=== PATIENT | female | born 1955 | race Caucasian/White ===

== ENCOUNTER 2018-12-20 04:52 | Emergency (ER) | payer OTHER ==
[2018-12-20] MEDS ORDERED: METHYLPREDNISOLONE 125 MG INJ ONE (05:27)
[2018-12-20] MEDS ORDERED: ALBUTEROL 2.5 MG/3 ML NEB SOL ONE (05:27)
[2018-12-20] MEDS ORDERED: LEVALBUTEROL 1.25 MG/3 ML NEB ONE (05:28)
[2018-12-20] MEDS ORDERED: IPRATROPIUM BROM 0.5MG/2.5ML ONE (05:28)
[2018-12-20] MEDS ORDERED: AZITHROMYCIN 500 MG INJ IVPB ONE (05:28)
[2018-12-20] MEDS ORDERED: CEFTRIAXONE 1000 MG/VIAL ONE (05:28)
[2018-12-20] MEDS ORDERED: NA CHLORIDE 0.9% 250 ML ONE (05:29)
[2018-12-20] MEDS ORDERED: ONDANSETRON 4 MG/2 ML VIAL ONE (05:49)
[2018-12-20 05:57] LABS: Absolute Lymphocytes (CBC) 1.5 K/uL (0.7-4.9); Absolute Monocytes 0.8 K/uL (0.1-1.3); Absolute Neutrophil 3.9 K/uL (1.8-8.0); Basophils % 1.2 % (0-1.3); Eosinophils % 6.9 % (0-4.4); Hematocrit 44.1 % (36.0-45.0); Lymphocytes % 21.7 % (15.3-44.8); MPV 9.2 fL (7.6-11.3); Monocytes % 12.5 % (3.3-12.3); RBC Red Blood Cell Count 4.61 M/uL (3.86-4.86)
[2018-12-20 06:04] LABS: Protime INR 0.92
[2018-12-20 06:13] LABS: ALT/SGPT 29 U/L (12-78); AST/SGOT 13 U/L (15-37); Albumin 3.9 g/dL (3.4-5.0); Alkaline Phosphatase 80 U/L (45-117); BUN Blood Urea Nitrogen 12 mg/dL (7-18); Bicarbonate 28 mmol/L (21-32); Bilirubin Direct 0.1 mg/dL (0-0.2); Bilirubin Total 0.4 mg/dL (0.2-1.0); CKMB Creatine Kinase MB 2.9 ng/mL (0.3-3.6); Creatine Phosphokinase 93 U/L (26-192); Glucose Level 149 mg/dL (74-106); Lipase 90 U/L (73-393); Magnesium 1.8 mg/dL (1.8-2.4); NT PRO-BNP 27 pg/mL (<125); Potassium 4.1 mmol/L (3.5-5.1); Protein, Total 6.6 g/dL (6.4-8.2); Sodium Level 143 mmol/L (136-145); Troponin (Emerg Dept Use Only) < 0.02 ng/mL (0.0-0.045)
--- NOTE | 2018-12-20 06:33 | EDPHYS ---
Physician Documentation [facility] Name: Cornelia Fairbanks Age: 63 yrs Sex: Female : 1955 Arrival Date: 12/20/2018 Time: 04:53 Bed 6 Private MD: ED Physician Sharona Story HPI: 12/20 05:07 This 63 yrs old Female presents to ER via Unassigned with complaints of ma2 Asthma Exacerbation, Breathing Difficulty. 05:07 The patient presents to the emergency department with wheezing, Current therapy: ma2 albuterol inhaler. Onset: The symptoms/episode began/occurred gradually, 1 hour(s) ago. Associated signs and symptoms: Pertinent positives: Pertinent negatives: fever, nausea, rash. Severity of symptoms: At their worst the symptoms were moderate severe in the emergency department the symptoms are unchanged. The patient has experienced similar episodes in the past. Historical: - Allergies: 05:12 NKDA; aa1 - Home Meds: 05:12 atorvastatin 20 mg Oral tab 1 tab once daily [Active]; Lisinopril Oral [Active]; aa1 Albuterol Inhl [Active]; Symbicort inhalation inhalation [Active]; Spiriva with HandiHaler inhalation inhalation [Active]; unknown BP med [Active]; unknown diabetes med [Active]; - PMHx: 05:12 Asthma; COPD; Depression; Myocardial infarction; Diabetes - NIDDM; Hypertension; CVA; aa1 AAA; Kidney stones; - PSHx: 05:12 Kidney stents; aa1 - Immunization history:: Flu vaccine is up to date. - Social history:: Patient/guardian denies using alcohol, street drugs, The patient lives with family, Smoking status: Patient/guardian denies using tobacco, the patient reports quitting approximately 2 years ago. - Family history:: not pertinent. - Ebola Screening: : Patient denies exposure to infectious person Patient denies travel to an Ebola-affected area in the 21 days before illness onset. ROS: 05:07 Constitutional: Negative for fever, chills, and weight loss, Neck: Negative for injury, ma2 pain, and swelling. 05:07 Respiratory: Positive for cough, wheezing, Negative for pleurisy. 05:07 All other systems are negative. Exam: 05:07 Constitutional: This is a well developed, well nourished patient who is awake, alert, ma2 and in no acute distress. Neck: Trachea midline, no thyromegaly or masses palpated, and no cervical lymphadenopathy. Supple, full range of motion without nuchal rigidity, or vertebral point tenderness. No Meningismus. Chest/axilla: Normal chest wall appearance and motion. Nontender with no deformity. No lesions are appreciated. Cardiovascular: Regular rate and rhythm with a normal S1 and S2. No gallops, murmurs, or rubs. Normal PMI, no JVD. No pulse deficits. 05:07 Respiratory: mild respiratory distress is noted, Respirations: labored breathing, Breath sounds: wheezing: that is moderate, is heard diffusely, Respiratory rate: 25 Vital Signs: 05:12 BP 166 / 101; Pulse 115; Resp 24; Temp 98.0(O); Pulse Ox 95% on R/A; Weight 76.66 kg; aa1 Height 5 ft. 2 in. (157.48 cm); Pain 0/10; 05:50 BP 129 / 89; Pulse 95; Resp 21; Pulse Ox 100% ; ea 06:50 BP 116 / 95; Pulse 90; Resp 18; Pulse Ox 100% on R/A; ea 05:12 Body Mass Index 30.91 (76.66 kg, 157.48 cm) aa1 MDM: 05:05 Patient medically screened. ak2 05:07 Differential diagnosis: acute asthma, exercise-induced asthma, reactive airway, URI. ma2 Antibiotic administration: The patient is discharged and will get outpatient antibiotics. 06:27 Data reviewed: vital signs, nurses notes. Counseling: I had a detailed discussion with [facility] the patient and/or guardian regarding: the historical points, exam findings, and any diagnostic results supporting the discharge/admit diagnosis, the presence of at least one elevated blood pressure reading (>120/80) during this emergency department visit, the need for outpatient follow up. Response to treatment: the patient's symptoms have resolved after treatment. ED course: all symptoms resolved . 12/20 05:04 Order name: Blood Culture Adult (2) [facility] 12/20 05:04 Order name: BMP; Complete Time: 06:26 [facility] 12/20 05:04 Order name: CBC with Diff; Complete Time: 06:10 [facility] 12/20 05:04 Order name: Ckmb; Complete Time: 06:26 12/20 05:04 Order name: CPK; Complete Time: 06:26 12/20 05:04 Order name: Hepatic Function; Complete Time: 06:26 12/20 05:04 Order name: XRAY CXR (1 view) 12/20 05:04 Order name: Lipase; Complete Time: 06:26 12/20 05:04 Order name: Magnesium; Complete Time: 06:26 12/20 05:04 Order name: NT PRO-BNP; Complete Time: 06:26 12/20 05:04 Order name: PT-INR; Complete Time: 06:10 12/20 05:04 Order name: Ptt, Activated; Complete Time: 06:10 12/20 05:04 Order name: Troponin (emerg Dept Use Only); Complete Time: 06:26 12/20 05:04 Order name: EKG; Complete Time: 05:06 12/20 05:04 Order name: Cardiac monitoring; Complete Time: 05:39 12/20 05:04 Order name: EKG - Nurse/Tech; Complete Time: 05:39 12/20 05:04 Order name: IV Saline Lock; Complete Time: 05:39 12/20 05:04 Order name: Labs collected and sent; Complete Time: 05:39 12/20 05:04 Order name: O2 Per Protocol; Complete Time: 05:39 12/20 05:04 Order name: O2 Sat Monitoring; Complete Time: 05:39 ma2 Administered Medications: 05:30 Drug: Xopenex 1.25 mg Route: Inhalation; ea 05:30 Drug: AtroVENT Aerosol 0.5 mg Route: Inhalation; ea 06:51 Follow up: Response: No adverse reaction; Marked relief of symptoms ea 05:30 Drug: Rocephin 1 grams Route: IV; Rate: calculated rate; Site: right antecubital; ea 05:50 Follow up: Response: No adverse reaction; IV Status: Completed infusion; IV Intake: 10mlea 05:38 Drug: SOLU-Medrol 125 mg Route: IVP; Site: right antecubital; ea 06:51 Follow up: Response: No adverse reaction ea 05:56 Drug: AZITHromycin 500 mg Route: IVPB; Infused Over: 1 hrs; Site: right antecubital; ea 06:50 Follow up: Response: No adverse reaction; IV Status: Completed infusion; IV Intake: ea 500ml 06:15 Drug: Albuterol 2.5 mg Route: Inhalation; ea Disposition: 12/20/18 06:32 Discharged to Home. Impression: Chronic obstructive pulmonary disease with (acute) exacerbation. - Condition is Stable. - Discharge Instructions: Chronic Obstructive Pulmonary Disease. - Prescriptions for Zithromax Z- Juan J 250 mg Oral Tablet - take 1 tablet by ORAL route as directed for 5 days Day 1 - take two (2) tablets one time. Day 2, 3, 4 , 5 take one (1) tablet once daily.; 6 tablet. Medrol (Juan J) 4 mg Oral Tablets, Dose Pack - take 1 tablet by ORAL route as directed - follow package instructions; 1 packet. - Medication Reconciliation Form, Thank You Letter, Antibiotic Education, Prescription Opioid Use form. - Follow up: Private Physician; When: Tomorrow; Reason: Continuance of care. Signatures: Dispatcher [employer] Mary Ellen Canales RN RN Paulina Bañuelos RN Sharona Sanders ea, MD MD ma2 Corrections: (The following items were deleted from the chart) 07:07 06:32 12/20/2018 06:32 Discharged to Home. Impression: Chronic obstructive pulmonary ea disease with (acute) exacerbation. Condition is Stable. Forms are Medication Reconciliation Form, Thank You Letter, Antibiotic Education, Prescription Opioid Use. Follow up: Private Physician; When: Tomorrow; Reason: Continuance of care. ma2
--- NOTE | 2018-12-20 06:33 | ER ---
Nurse's Notes [facility] Name: Cornelia Fairbanks Age: 63 yrs Sex: Female : 1955 Arrival Date: 12/20/2018 Time: 04:53 Bed 6 Private MD: Diagnosis: Chronic obstructive pulmonary disease with (acute) exacerbation Presentation: 12/20 05:09 Presenting complaint: Patient states: she woke up from sleep approx 2 hrs ago with SOB. aa1 Reports hx of COPD and had no relief from her albuterol. Transition of care: patient was not received from another setting of care. Onset of symptoms was December 20, 2018. Risk Assessment: Do you want to hurt yourself or someone else? Patient reports no desire to harm self or others. Initial Sepsis Screen: Does the patient meet any 2 criteria? RR > 20 per min. HR > 90 bpm. Does the patient have a suspected source of infection? No. Patient's initial sepsis screen is negative. Care prior to arrival: None. 05:09 Method Of Arrival: Wheelchair aa1 05:09 Acuity: GALDINO 3 aa1 Historical: - Allergies: 05:12 NKDA; aa1 - Home Meds: 05:12 atorvastatin 20 mg Oral tab 1 tab once daily [Active]; Lisinopril Oral [Active]; aa1 Albuterol Inhl [Active]; Symbicort inhalation inhalation [Active]; Spiriva with HandiHaler inhalation inhalation [Active]; unknown BP med [Active]; unknown diabetes med [Active]; - PMHx: 05:12 Asthma; COPD; Depression; Myocardial infarction; Diabetes - NIDDM; Hypertension; CVA; aa1 AAA; Kidney stones; - PSHx: 05:12 Kidney stents; aa1 - Immunization history:: Flu vaccine is up to date. - Social history:: Patient/guardian denies using alcohol, street drugs, The patient lives with family, Smoking status: Patient/guardian denies using tobacco, the patient reports quitting approximately 2 years ago. - Family history:: not pertinent. - Ebola Screening: : Patient denies exposure to infectious person Patient denies travel to an Ebola-affected area in the 21 days before illness onset. Screenin:58 Abuse screen: Denies threats or abuse. Nutritional screening: No deficits noted. ea Tuberculosis screening: No symptoms or risk factors identified. Fall Risk Assessment: 05:30 General: Appears uncomfortable, Behavior is calm, cooperative, appropriate for age. ea Pain: Denies pain. Neuro: Level of Consciousness is awake, alert, obeys commands, Oriented to person, place, time, situation. Cardiovascular: Patient's skin is warm and dry. Respiratory: Airway is patent Respiratory effort is even, labored, Respiratory pattern is regular, tachypnea Breath sounds are coarse bilaterally. Breath sounds with wheezes bilaterally. GI: No signs and/or symptoms were reported involving the gastrointestinal system. : Reports urinary frequency. Derm: Skin is pink, warm \T\ dry. 06:50 Reassessment: Patient and/or family updated on plan of care and expected duration. Pain ea level reassessed. Patient is alert, oriented x 3, equal unlabored respirations, skin warm/dry/pink. Discharge instructions given to patient, verbalized the understanding of instruction Patient states feeling better. Patient states symptoms have improved. Vital Signs: 05:12 BP 166 / 101; Pulse 115; Resp 24; Temp 98.0(O); Pulse Ox 95% on R/A; Weight 76.66 kg; aa1 Height 5 ft. 2 in. (157.48 cm); Pain 0/10; 05:50 BP 129 / 89; Pulse 95; Resp 21; Pulse Ox 100% ; ea 06:50 BP 116 / 95; Pulse 90; Resp 18; Pulse Ox 100% on R/A; ea 05:12 Body Mass Index 30.91 (76.66 kg, 157.48 cm) aa1 ED Course: 04:53 Patient arrived in ED. am2 05:05 Sharona Story MD is Attending Physician. ma2 05:10 Triage completed. aa1 05:12 Arm band placed on right wrist. aa1 05:25 Inserted saline lock: 20 gauge in right antecubital area, using aseptic technique. ea Blood collected. 05:30 Patient has correct armband on for positive identification. Bed in low position. Call ea light in reach. Side rails up X2. 05:43 X-ray completed. Portable x-ray completed in exam room. Patient tolerated procedure kw well. 05:44 XRAY CXR (1 view) In Process Unspecified. EDMS 05:54 Paulina Baumann RN is Primary Nurse. ea 06:58 No provider procedures requiring assistance completed. IV discontinued, intact, ea bleeding controlled, No redness/swelling at site. Pressure dressing applied. Administered Medications: 05:30 Drug: Xopenex 1.25 mg Route: Inhalation; ea 05:30 Drug: AtroVENT Aerosol 0.5 mg Route: Inhalation; ea 06:51 Follow up: Response: No adverse reaction; Marked relief of symptoms ea 05:30 Drug: Rocephin 1 grams Route: IV; Rate: calculated rate; Site: right antecubital; ea 05:50 Follow up: Response: No adverse reaction; IV Status: Completed infusion; IV Intake: 10mlea 05:38 Drug: SOLU-Medrol 125 mg Route: IVP; Site: right antecubital; ea 06:51 Follow up: Response: No adverse reaction ea 05:56 Drug: AZITHromycin 500 mg Route: IVPB; Infused Over: 1 hrs; Site: right antecubital; ea 06:50 Follow up: Response: No adverse reaction; IV Status: Completed infusion; IV Intake: ea 500ml 06:15 Drug: Albuterol 2.5 mg Route: Inhalation; ea Intake: 05:50 IV: 10ml; Total: 10ml. ea 06:50 IV: 500ml; Total: 510ml. ea Outcome: 06:32 Discharge ordered by MD. berrios2 06:59 Discharged to home ambulatory, with family. ea 06:59 Condition: improved 06:59 Instructed on discharge instructions, follow up and referral plans. Demonstrated understanding of Prescriptions given X 2. 07:07 Patient left the ED. ea Signatures: Dispatcher [employer] EDMS Mary Ellen Jacobson RN RN aa1 Monique Castellano Amanda am2 Paulina Baumann RN RN ea Alzahri, Mohammad, MD MD ma2 Corrections: (The following items were deleted from the chart) 07:05 06:50 Reassessment: Patient and/or family updated on plan of care and expected ea duration. Pain level reassessed. Patient is alert, oriented x 3, equal unlabored respirations, skin warm/dry/pink. Patient states feeling better. Patient states symptoms have improved. ea
[2018-12-20 07:14] VITALS: TEMP 98
[2018-12-20 07:16] VITALS: O2SAT 100
[2018-12-20 07:17] VITALS: BP 116/95
--- NOTE | 2018-12-20 08:23 | RAD REPORT ---
EXAM DESCRIPTION: RAD - Chest Single View - 12/20/2018 5:47 am CLINICAL HISTORY: CONGESTION Chest pain. COMPARISON: Chest Pa And Lat (2 Views) dated 04/10/2017; Chest Single View dated 03/31/2016; CHEST SIN GLE VIEW dated 11/25/2015; CHEST SINGLE VIEW dated 10/07/2015 FINDINGS: Portable technique limits examination quality. Calcified granuloma is present left lung base, unchanged. The lungs are otherwise grossly clear. The heart is normal in size. No displaced fractures. IMPRESSION: No acute intrathoracic process suspected.
--- NOTE | 2018-12-20 13:39 | EKG ---
Test Date: 2018-12-20 Test Time: 05:27:23 Gizzard Skin Remover: REY MEASUREMENT RESULTS: Intervals: Rate: 100 [place]: 132 QRSD: 88 QT: 360 QTc: 464 [place]: P: 78 [place]: 132 QRS: -75 T: 57 INTERPRETIVE STATEMENTS: Normal sinus rhythm Left anterior fascicular block Abnormal ECG Compared to ECG 03/31/2016 22:11:59 Left anterior fascicular block now present Sinus tachycardia no longer present ST (T wave) deviation no longer present Electronically Signed On 12-20-18 13:38:26 INFORMATION ASSURANCE by Jean Paul Manriquez
== END 2018-12-20 07:07 | disposition home or self-care (01) ==
LOC: ER 04:52
DX: J44.1 Chronic obstructive pulmonary disease with (acute) exacerbation (principal); I10 Essential (primary) hypertension; E11.9 Type 2 diabetes mellitus without complications; F32.9 Major depressive disorder, single episode, unspecified; Z86.73 Personal history of transient ischemic attack (TIA), and cerebral infarction without residual deficits
CPT/HCPCS: 96365; 96367; 93005; 87040 ×2; 85025; 80048; 36415; 83735; 82550; 85610; 80076; 85730; 84484; 82553; 83690; 83880; 71045; 96375; 99284; J0456; J2930; J2405

== ENCOUNTER 2019-01-11 19:13 | Inpatient (IN) | payer OTHER ==
[2019-01-11] MEDS ORDERED: ALBUTEROL 2.5 MG/3 ML NEB SOL ONE (20:08)
[2019-01-11] MEDS ORDERED: METHYLPREDNISOLONE 125 MG INJ ONE (20:08)
[2019-01-11 20:18] LABS: Absolute Lymphocytes (CBC) 1.5 K/uL (0.7-4.9); Absolute Monocytes 0.9 K/uL (0.1-1.3); Absolute Neutrophil 4.1 K/uL (1.8-8.0); Eosinophils % 7.1 % (0-4.4); Hematocrit 43.4 % (36.0-45.0); Lymphocytes % 21.4 % (15.3-44.8); MPV 8.8 fL (7.6-11.3); RBC Red Blood Cell Count 4.51 M/uL (3.86-4.86)
[2019-01-11 20:24] LABS: Protime INR 0.98
--- NOTE | 2019-01-11 20:29 | RAD REPORT ---
EXAM DESCRIPTION: RAD - Chest Single View - 01/11/2019 8:19 pm CLINICAL HISTORY: DYSPNEA Chest pain. COMPARISON: Chest Single View dated 12/20/2018; Chest Pa And Lat (2 Views) dated 04/10/2017; Chest Sing le View dated 03/31/2016; CHEST SINGLE VIEW dated 11/25/2015 FINDINGS: Portable technique limits examination quality. The lungs are grossly clear. The heart is normal in size. No displaced fractures. IMPRESSION: No acute intrathoracic process suspected.
[2019-01-11 20:37] LABS: ALT/SGPT 32 U/L (12-78); AST/SGOT 15 U/L (15-37); Albumin 3.7 g/dL (3.4-5.0); Alkaline Phosphatase 95 U/L (45-117); BUN Blood Urea Nitrogen 18 mg/dL (7-18); Bicarbonate 31 mmol/L (21-32); Bilirubin Direct 0.1 mg/dL (0-0.2); Bilirubin Total 0.3 mg/dL (0.2-1.0); Glucose Level 170 mg/dL (74-106); Magnesium 1.8 mg/dL (1.8-2.4); NT PRO-BNP 25 pg/mL (<125); Protein, Total 6.6 g/dL (6.4-8.2); Sodium Level 142 mmol/L (136-145); Troponin (Emerg Dept Use Only) < 0.02 ng/mL (0.0-0.045)
--- NOTE | 2019-01-11 20:54 | ER ---
Nurse's Notes [facility] Name: Cornelia Fairbanks Age: 63 yrs Sex: Female : 1955 Arrival Date: 01/11/2019 Time: 19:15 Bed 18 Private MD: Diagnosis: Chronic obstructive pulmonary disease with (acute) exacerbation Presentation: 01/11 19:20 Presenting complaint: Patient states: Increasing SOB over the course of the last day, la1 cough is dry, Pt denies fevers. Transition of care: patient was not received from another setting of care. Onset of symptoms was January 11, 2019. Risk Assessment: Do you want to hurt yourself or someone else? Patient reports no desire to harm self or others. Initial Sepsis Screen: Does the patient meet any 2 criteria? No. Patient's initial sepsis screen is negative. Does the patient have a suspected source of infection? No. Patient's initial sepsis screen is negative. Care prior to arrival: None. 19:20 Method Of Arrival: Ambulatory la1 19:20 Acuity: GALDINO 3 la1 Historical: - Allergies: 19:20 NKDA; la1 - PMHx: 19:20 AAA; Asthma; COPD; CVA; Diabetes - NIDDM; Hypertension; Kidney stones; Myocardial la1 infarction; Depression; - PSHx: 20:47 Kidney stents; jd3 - Immunization history:: Adult Immunizations up to date. - Social history:: Smoking status: Patient/guardian denies using tobacco, the patient reports quitting approximately 2 years ago. - Ebola Screening: : No symptoms or risks identified at this time. Screenin:37 Abuse screen: Denies threats or abuse. Nutritional screening: No deficits noted. jd3 Tuberculosis screening: No symptoms or risk factors identified. Fall Risk Ambulatory Aid- None/Bed Rest/Nurse Assist (0 pts). Gait- Normal/Bed Rest/Wheelchair (0 pts) Mental Status- Oriented to own ability (0 pts). Total Smyth Fall Scale indicates No Risk (0-24 pts). Assessment: 19:35 General: Appears in no apparent distress. uncomfortable, Behavior is calm, cooperative, jd3 appropriate for age. Pain: Complains of pain in chest Aggravated by coughing. Neuro: Level of Consciousness is awake, alert, obeys commands, Oriented to person, place, time, situation, Appropriate for age. Cardiovascular: Capillary refill < 3 seconds Patient's skin is warm and dry. Respiratory: Reports shortness of breath at rest cough that is productive, Airway is patent Respiratory effort is even, labored, Respiratory pattern is regular, symmetrical, Breath sounds with wheezes bilaterally. GI: No signs and/or symptoms were reported involving the gastrointestinal system. : No signs and/or symptoms were reported regarding the genitourinary system. EENT: No signs and/or symptoms were reported regarding the EENT system. Derm: Skin is intact, Skin is dry, Skin is normal, Skin temperature is warm. Musculoskeletal: Circulation, motion, and sensation intact. Range of motion: intact in all extremities. 20:35 Reassessment: Patient appears in no apparent distress at this time. Patient and/or jd3 family updated on plan of care and expected duration. Pain level reassessed. Patient is alert, oriented x 3, equal unlabored respirations, skin warm/dry/pink. Patient states feeling better. 21:25 Reassessment: Jayla Raines daughter's cell: [phone]. Reassessment: Patient shanice appears in no apparent distress at this time. Patient and/or family updated on plan of care and expected duration. Pain level reassessed. Patient is alert, oriented x 3, equal unlabored respirations, skin warm/dry/pink. 22:11 Reassessment: Patient appears in no apparent distress at this time. Patient and/or jd3 family updated on plan of care and expected duration. Pain level reassessed. Patient is alert, oriented x 3, equal unlabored respirations, skin warm/dry/pink. report given to Suzan for room 210. Vital Signs: 19:22 BP 154 / 93; Pulse 115; Resp 22; Temp 98.0; Pulse Ox 92% on R/A; Weight 74.84 kg; la1 Height 5 ft. 2 in. (157.48 cm); 20:35 BP 130 / 78; Pulse 102; Resp 17 S; Pulse Ox 93% on R/A; jd3 21:26 BP 126 / 79; Pulse 98; Resp 19 S; Pulse Ox 92% on R/A; jd3 22:26 BP 135 / 92; Pulse 98; Resp 18 S; Pulse Ox 94% on R/A; jd3 19:22 Body Mass Index 30.18 (74.84 kg, 157.48 cm) la1 ED Course: 19:15 Patient arrived in ED. am2 19:20 Arm band placed on left wrist. la1 19:21 Triage completed. la1 19:23 Mark Earl PA is PHCP. jr8 19:23 Armando Chamorro MD is Attending Physician. jr8 19:24 Kalin Dimas RN is Primary Nurse. jd3 19:37 Patient has correct armband on for positive identification. Placed in gown. Bed in low jd3 position. Call light in reach. Side rails up X 1. Adult w/ patient. 20:06 Initial lab(s) drawn, by me, sent to lab. Inserted saline lock: 22 gauge in right lt1 antecubital area, using aseptic technique. 20:20 XRAY Chest (1 view) In Process Unspecified. EDMS 20:53 Sharona Ambrocio MD is Referral Physician. jr8 20:54 Sharona Ambrocio MD is Hospitalizing Provider. jr8 22:12 No provider procedures requiring assistance completed. Patient admitted, IV remains in jd3 place. Administered Medications: 20:07 Drug: Albuterol 2.5 mg Route: Inhalation; jd3 21:28 Follow up: Response: No adverse reaction jd3 20:07 Drug: SOLU-Medrol 125 mg Route: IVP; Site: right antecubital; jd3 21:28 Follow up: Response: No adverse reaction jd3 Outcome: 20:53 Discharge ordered by . jr8 20:55 Decision to Hospitalize by Provider. jr8 22:12 Admitted to Tele accompanied by [facility], via wheelchair, room 210, with chart, Report jd3 called to [facility] nurse for 210 22:12 Condition: stable 22:12 Instructed on the need for admit, Demonstrated understanding of instructions. 22:27 Patient left the ED. jd3 Signatures: Dispatcher [employer] EDMS Mark Earl PA PA jr8 Gregor Munoz RN RN la1 Ernestina Garay am2 Kalin Dimas RN RN jd3 Lizz Gavin lt1 Corrections: (The following items were deleted from the chart) 20:46 19:35 Respiratory: Reports shortness of breath at rest cough that is non-productive, jd3 Airway is patent Respiratory effort is even, labored, Respiratory pattern is regular, symmetrical, Breath sounds with wheezes bilaterally. jd3
--- NOTE | 2019-01-11 20:54 | EDPHYS ---
Physician Documentation [facility] Name: Cornelia Fairbanks Age: 63 yrs Sex: Female : 1955 Arrival Date: 01/11/2019 Time: 19:15 Bed 18 Private MD: ED Physician Armando Chamorro HPI: 01/11 19:47 This 63 yrs old Female presents to ER via Ambulatory with complaints of jr8 Breathing Difficulty. 19:47 The patient has shortness of breath at rest. Onset: The symptoms/episode began/occurred jr8 2 week(s) ago. Duration: The symptoms are continuous, and are steadily getting worse. The patient's shortness of breath is aggravated by exertion, light activity, walking. Associated signs and symptoms: Pertinent positives: productive cough, wheezing. Severity of symptoms: At their worst the symptoms were moderate. The patient has experienced similar episodes in the past, with the last episode occurring 2 weeks ago when seen in ER for similar symptoms. The patient has not recently seen a physician. Historical: - Allergies: 19:20 NKDA; la1 - PMHx: 19:20 AAA; Asthma; COPD; CVA; Diabetes - NIDDM; Hypertension; Kidney stones; Myocardial la1 infarction; Depression; - PSHx: 20:47 Kidney stents; jd3 - Immunization history:: Adult Immunizations up to date. - Social history:: Smoking status: Patient/guardian denies using tobacco, the patient reports quitting approximately 2 years ago. - Ebola Screening: : No symptoms or risks identified at this time. ROS: 19:49 Constitutional: Negative for fever, chills, and weight loss. jr8 19:49 Constitutional: Negative for body aches, fatigue, fever, poor PO intake, weight loss. 19:49 ENT: Negative for rhinorrhea, sinus congestion, sinus pain, sore throat. 19:49 Cardiovascular: Negative for chest pain, edema, orthopnea, palpitations. 19:49 Respiratory: Positive for cough, with white sputum, shortness of breath, at rest. wheezing, inspiratory, expiratory, of the right upper lobe, left upper lobe, right middle lobe, left lower lobe, right lower lobe, left posterior upper lobe, right posterior upper lobe, left posterior lower lobe, right posterior middle lobe and right posterior lower lobe. 19:49 Abdomen/GI: Negative for abdominal pain, nausea and vomiting, nausea, vomiting, and diarrhea, anorexia. 19:49 Skin: Negative for rash. Exam: 19:51 Constitutional: This is a well developed, well nourished patient who is awake, alert, jr8 and in no acute distress. Head/Face: Normocephalic, atraumatic. ENT: Nares patent. No nasal discharge, no septal abnormalities noted. Tympanic membranes are normal and external auditory canals are clear. Oropharynx with no redness, swelling, or masses, exudates, or evidence of obstruction, uvula midline. Mucous membranes moist. Chest/axilla: Normal chest wall appearance and motion. Nontender with no deformity. No lesions are appreciated. Cardiovascular: Regular rate and rhythm with a normal S1 and S2. No gallops, murmurs, or rubs. Normal PMI, no JVD. No pulse deficits. Abdomen/GI: Soft, non-tender, with normal bowel sounds. No distension or tympany. No guarding or rebound. No evidence of tenderness throughout. Skin: Warm, dry with normal turgor. Normal color with no rashes, no lesions, and no evidence of cellulitis. 19:51 Respiratory: mild respiratory distress is noted, Respirations: labored breathing, that is mild, tachypnea, that is mild, Breath sounds: wheezing: inspiratory expiratory is heard diffusely. Vital Signs: 19:22 BP 154 / 93; Pulse 115; Resp 22; Temp 98.0; Pulse Ox 92% on R/A; Weight 74.84 kg; la1 Height 5 ft. 2 in. (157.48 cm); 20:35 BP 130 / 78; Pulse 102; Resp 17 S; Pulse Ox 93% on R/A; jd3 21:26 BP 126 / 79; Pulse 98; Resp 19 S; Pulse Ox 92% on R/A; jd3 22:26 BP 135 / 92; Pulse 98; Resp 18 S; Pulse Ox 94% on R/A; jd3 19:22 Body Mass Index 30.18 (74.84 kg, 157.48 cm) la1 MDM: 19:28 Patient medically screened. [facility] 20:52 Data reviewed: vital signs, nurses notes, lab test result(s), EKG, radiologic studies, jr8 plain films. Data interpreted: Pulse oximetry: on room air is 90 %. Interpretation: borderline. Counseling: I had a detailed discussion with the patient and/or guardian regarding: the historical points, exam findings, and any diagnostic results supporting the discharge/admit diagnosis, lab results, radiology results, the need for further work-up and treatment in the hospital. Physician consultation: Sharona Ambrocio MD was called at 20:53, was contacted at 20:53, regarding admission, to the telemetry unit. and will see patient. 01/11 19:53 Order name: Basic Metabolic Panel; Complete Time: 20:43 01/11 19:53 Order name: CBC with Diff; Complete Time: 20:35 01/11 19:53 Order name: LFT's; Complete Time: 20:43 01/11 19:53 Order name: Magnesium; Complete Time: 20:43 01/11 19:53 Order name: NT PRO-BNP; Complete Time: 20:43 01/11 19:53 Order name: PT-INR; Complete Time: 20:35 01/11 19:53 Order name: Troponin (emerg Dept Use Only); Complete Time: 20:43 01/11 19:53 Order name: XRAY Chest (1 view); Complete Time: 20:35 01/11 21:55 Order name: CBC with Automated Diff EDMS 01/11 21:55 Order name: CBC with Automated Diff EDMS 01/11 21:55 Order name: Comprehensive Metabolic Panel EDAK 01/11 21:55 Order name: Comprehensive Metabolic Panel EDAK 01/11 21:55 Order name: Chest Single View EDAK 01/11 21:55 Order name: Chest Single View EDAK 01/11 19:53 Order name: EKG; Complete Time: 19:53 01/11 19:53 Order name: Cardiac monitoring; Complete Time: 20:08 01/11 19:53 Order name: EKG - Nurse/Tech; Complete Time: 20:13 01/11 19:53 Order name: IV Saline Lock; Complete Time: 20:08 01/11 19:53 Order name: Labs collected and sent; Complete Time: 20:08 01/11 19:53 Order name: O2 Per Protocol; Complete Time: 20:01/11 19:53 Order name: O2 Sat Monitoring; Complete Time: 20:08 jr8 01/11 21:55 Order name: CONS Pharmacy Consult EDMS 01/11 21:55 Order name: Regular EDAK Administered Medications: 20:07 Drug: Albuterol 2.5 mg Route: Inhalation; jd3 21:28 Follow up: Response: No adverse reaction jd3 20:07 Drug: SOLU-Medrol 125 mg Route: IVP; Site: right antecubital; jd3 21:28 Follow up: Response: No adverse reaction jd3 Disposition: 22:29 Co-signature as Attending Physician, Armando Chamorro MD. jose Disposition: 01/11/19 20:55 Hospitalization ordered by Sharona Ambrocio for Observation. Preliminary diagnosis is Chronic obstructive pulmonary disease with (acute) exacerbation. - Bed requested for Telemetry/MedSurg (observation). - Status is Observation. jd3 - Condition is Stable. - Problem is new. - Symptoms have improved. UTI on Admission? No Signatures: Dispatcher [employer] EDAK Armando Chamorro MD MD pkMark Brooke PA PA jr8 Gregor Munoz RN RN la1 Kalin Dimas RN RN jd3 Lupe Levine ar5 Corrections: (The following items were deleted from the chart) 20:54 20:53 01/11/2019 20:53 Discharged to Home. Impression: Chronic obstructive pulmonary jr8 disease with (acute) exacerbation. Condition is Stable. Forms are Medication Reconciliation Form, Thank You Letter, Antibiotic Education, Prescription Opioid Use. Follow up: Sharona Ambrocio; When: 2 - 3 days; Reason: Recheck today's complaints, Continuance of care, Re-evaluation by your physician. Problem is new. Symptoms have improved. jr8 21:57 20:55 Hospitalization Ordered by Sharona Ambrocio MD for Observation. Preliminary ar5 diagnosis is Chronic obstructive pulmonary disease with (acute) exacerbation. Bed requested for Telemetry/MedSurg (observation). Status is Observation. Condition is Stable. Problem is new. Symptoms have improved. UTI on Admission? No. jr8 22:27 21:57 01/11/2019 20:55 Hospitalization Ordered by Sharona Ambrocio MD for Observation. jd3 Preliminary diagnosis is Chronic obstructive pulmonary disease with (acute) exacerbation. Bed requested for Telemetry/MedSurg (observation). Status is Observation. Condition is Stable. Problem is new. Symptoms have improved. UTI on Admission? No. ar5
[2019-01-11] MEDS ORDERED: ONDANSETRON 4 MG/2 ML VIAL IV PRN (21:51)
[2019-01-11] MEDS ORDERED: ACETAMINOPHEN 500 MG TAB PO PRN (21:51)
[2019-01-11 22:41] VITALS: BMI 30.2
[2019-01-11] MEDS: NA CHLORIDE 0.9% 1,000 ML IV SCH (22:55)
[2019-01-12] MEDS: METHYLPREDNISOLONE 125 MG INJ IV SCH ×4 (00:55→20:30)
[2019-01-12] MEDS ORDERED: CEFTRIAXONE 1 GM/NS 50 ML 1 GM/50 ML BAG IV SCH (01:00)
[2019-01-12] MEDS: IPRATROPIUM BROM 0.5MG/2.5ML NEB SCH ×5 (01:00→20:00)
[2019-01-12] MEDS: ALBUTEROL 2.5 MG/3 ML NEB SOL NEB SCH ×5 (01:00→20:00)
[2019-01-12] MEDS ORDERED: CEFTRIAXONE/SWI 1gm 1 GM/10 ML SYR ONE (01:04)
[2019-01-12 03:58] LABS: Urine Appearance CLEAR; Urine Bilirubin NEGATIVE (NEG); Urine Blood TRACE (NEG); Urine Color YELLOW; Urine Glucose NEGATIVE (NEG); Urine Protein NEGATIVE (NEG)
[2019-01-12 04:06] LABS: Urine Microscopic Reflex ORDER UMIC
[2019-01-12 05:23] LABS: Urine Culture Reflex Order REFLEXED
[2019-01-12 05:24] LABS: Calcium Oxalate Crystals- Ur MODERATE (NONE SEEN); Urine Bacteria 20-50 /HPF (<20)
[2019-01-12 05:31] LABS: Absolute Lymphocytes (CBC) 0.3 K/uL (0.7-4.9); Absolute Neutrophil 6.1 K/uL (1.8-8.0); Basophils % 0.1 % (0-1.3); Hematocrit 42.9 % (36.0-45.0); Lymphocytes % 4.3 % (15.3-44.8); Monocytes % 0.8 % (3.3-12.3); RBC Red Blood Cell Count 4.43 M/uL (3.86-4.86)
[2019-01-12 05:40] LABS: Albumin 3.6 g/dL (3.4-5.0); Bilirubin Total 0.3 mg/dL (0.2-1.0); Potassium 4.2 mmol/L (3.5-5.1); Protein, Total 6.3 g/dL (6.4-8.2)
[2019-01-12] MEDS: GUAIFENESIN/CODEINE 5ML UCUP PO PRN ×2 (06:05→17:56)
--- NOTE | 2019-01-12 08:07 | P.HP ---
Certification for Inpatient Patient admitted to: Observation With expected LOS: <2 Midnights Patient will require the following post-hospital care: None Practitioner: I am a practitioner with admitting privileges, knowledge of patient current condition, hospital course, and medical plan of care. Services: Services provided to patient in accordance with Admission requirements found in Title 42 Section 412.3 of the Code of Federal Regulations Patient History Date of Service: 01/11/19 Reason for admission: Acute COPD exacerbation History of Present Illness: Patient is a 63-year-old female who came into the emergency room with shortness of breath. Patient has a history of COPD. She was started on nebs, steroids, and antibiotics. Clinically her symptoms have improved. She has a history of tobacco use. She quit about 3 years ago. 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 She has had no medicine change recently. There has just been a lot of allergens and she started feeling really short of breath a couple of days ago and has progressed. She was in the hospital a few weeks ago with similar complaints. She did well at home but a few days later she states she started noticing that her breathing was starting to get worse. She will be admitted for further treatment at this time. Allergies No Known Allergies Allergy (Verified 01/11/19 23:02) Home Medications: Albuterol Sulfate [Proair Hfa] 1 puff IH SEECOM 01/11/19 Atorvastatin Calcium [Lipitor*] 1 tab PO BEDTIME 01/11/19 Lisinopril [Zestril] 1 tab PO DAILY 01/11/19 Metformin HCl [Glucophage*] 1 tab PO BID 01/11/19 Tiotropium [place] [Spiriva Respimat] 2 puff IH DAILY 01/11/19 - Past Medical/Surgical History Has patient received pneumonia vaccine in the past: Yes Diabetic: Yes -: AAA -: asthma -: copd -: CVA -: diabeted niddm -: kidney stones -: [place] -: depression -: hernia Repair -: Cholecystectomy -: Kidney Stone Removal - Family History Mother Medical History: Hypertension - Social History Smoking Status: Former smoker Alcohol use: No CD- Drugs: No Caffeine use: Yes Place of Residence: Home Review of Systems 10-point ROS is otherwise unremarkable Physical Examination - Vital Signs Temperature: 97.6 F Blood Pressure: 123/70 Pulse: 110 Respirations: 20 Pulse Ox (%): 93 - Physical Exam General: Alert, In no apparent distress, Oriented x3 HEENT: Atraumatic, PERRLA, Mucous membr. moist/pink, EOMI, Sclerae nonicteric Neck: Supple, 2+ carotid pulse no bruit, No LAD, Without JVD or thyroid abnormality Respiratory: Diminished, Expiratory wheezes, Inspiratory wheezes Cardiovascular: Regular rate/rhythm, Normal S1 S2, No murmurs Gastrointestinal: Normal bowel sounds, Soft and benign, Non-distended, No tenderness Musculoskeletal: No clubbing, No swelling, No tenderness Integumentary: No rashes Neurological: Normal gait, Normal speech, Normal strength at 5/5 x4 extr, Normal tone, Sensation intact, Cranial nerves 3-12 intact, Normal affect Lymphatics: No axilla or inguinal lymphadenopathy - Studies Laboratory Data (last 24 hrs) 01/11/19 20:00: PT 11.6, INR 0.98 01/11/19 20:00: WBC 7.1, Hgb 14.5, Hct 43.4, Plt Count 274 01/11/19 20:00: Sodium 142, Potassium 4.0, BUN 18, Creatinine 0.86, Glucose 170 H, Magnesium 1.8, Total Bilirubin 0.3, AST 15, ALT 32, Alkaline Phosphatase 95 Assessment & Plan - Problems (Diagnosis) (1) Acute exacerbation of chronic obstructive pulmonary disease (COPD) Current Visit: Yes Status: Acute - Plan -nebs, steroids, and antibiotics -O2 per protocol. -check room air O2 saturations -outpatient spirometry or pulmonary function testing -repeat chest x-ray -pulmonary consultation Discharge Plan: Home Plan to discharge in: 48 Hours - Advance Directives Does patient have a Living Will: No Does patient have a Durable POA for Healthcare: No - Code Status/Comfort Care Code Status Assessed: Yes Code Status: Full Code Critical Care: No Time Spent Managing PTS Care (In Minutes): 40
--- NOTE | 2019-01-12 08:08 | RAD REPORT ---
EXAM DESCRIPTION: RAD - Chest Single View - 01/12/2019 6:03 am CLINICAL HISTORY: Pneumonia COMPARISON: January 11 TECHNIQUE: AP portable chest image was obtained 0557 hours . FINDINGS: Lungs are clear. Heart and vasculature are normal. No measurable pleural effusion and no p neumothorax. No acute bony abnormality seen. No acute aortic findings suspected. IMPRESSION: No acute cardiopulmonary process. No new or progressive finding from comparison.
[2019-01-12 08:09] LABS: Blood Morphology Comment NOT SEEN (NOT SEEN); Platelet Estimate ADEQ
[2019-01-12] MEDS: GUAIFENESIN 600 MG SA TAB PO SCH ×2 (09:11→20:27)
[2019-01-12] MEDS: NA CHLORIDE 0.9% 1,000 ML IV SCH (09:19)
--- NOTE | 2019-01-12 10:58 | P.CNS ---
Date of Consult: 01/12/19 Chief Complaint: Acute COPD exacerbation History of Present Illness: Patient is 63 years of age well known to me with a history of COPD admitted with an exacerbation she has been sick for about 2 weeks came to the emergency room was discharged became worse complaining of a heavy cough was treating herself with Robitussin and honey cough improved somewhat became worse again ended up here in the hospital patient is a former smoker she uses Spiriva and pro air at home feeling a little better denies any fever or chills complaining of a deep cough Allergies No Known Allergies Allergy (Verified 01/11/19 23:02) Home Medications: Albuterol Sulfate [Proair Hfa] 1 puff IH SEECOM 01/11/19 Atorvastatin Calcium [Lipitor*] 1 tab PO BEDTIME 01/11/19 Lisinopril [Zestril] 1 tab PO DAILY 01/11/19 Metformin HCl [Glucophage*] 1 tab PO BID 01/11/19 Tiotropium [place] [Spiriva Respimat] 2 puff IH DAILY 01/11/19 - Past Medical/Surgical History Diabetic: Yes -: AAA -: asthma -: copd -: CVA -: diabeted niddm -: kidney stones -: [place] -: depression -: hernia Repair -: Cholecystectomy -: Kidney Stone Removal - Family History Mother Medical History: Hypertension - Social History Smoking Status: Former smoker, Never smoker Alcohol use: No CD- Drugs: No Caffeine use: Yes Place of Residence: Home Review of Systems General: Weakness Respiratory: Cough, Shortness of Breath Physical Examination Temp Pulse Resp BP Pulse Ox 97.6 F 110 H 20 123/70 93 01/12/19 08:07 01/12/19 08:07 01/12/19 08:07 01/12/19 08:07 01/12/19 08:07 General: Alert, Oriented x3 HEENT: Atraumatic Neck: Supple Respiratory: Expiratory wheezes Cardiovascular: No edema, Regular rate/rhythm, Normal S1 S2 Gastrointestinal: Normal bowel sounds, Soft and benign Laboratory Data (last 24 hrs) 01/11/19 20:00: PT 11.6, INR 0.98 01/11/19 20:00: WBC 7.1, Hgb 14.5, Hct 43.4, Plt Count 274 01/11/19 20:00: Sodium 142, Potassium 4.0, BUN 18, Creatinine 0.86, Glucose 170 H, Magnesium 1.8, Total Bilirubin 0.3, AST 15, ALT 32, Alkaline Phosphatase 95 - Problems (1) COPD exacerbation Onset Date: 11/26/15 Current Visit: No Status: Acute Plan: Patient is 63 years of age admitted with COPD exacerbation chest x-rays clear complaining of a deep cough chemistries unremarkable CBCs normal patient is flying to [place] in mid January continue with antibiotics and steroids possible discharge home on prednisone 10 mg twice a day for 10 days she is to come by 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
--- NOTE | 2019-01-12 11:05 | P.PN ---
Subjective Date of Service: 01/12/19 Chief Complaint: Acute COPD exacerbation Patient seen and examined at bedside with RN. Chart reviewed. Case discussed with pulmonology. Overnight patient complains of having shortness of breath and wheezing. States that she just does not feel well in her home inhalers are not working as well as the nebulizers here. Review of Systems 10-point ROS is otherwise unremarkable Physical Examination - Vital Signs Temperature: 97.6 F Blood Pressure: 123/70 Pulse: 110 Respirations: 20 Pulse Ox (%): 93 - Physical Exam General: Alert, In no apparent distress Respiratory: Normal air movement, Expiratory wheezes, Inspiratory wheezes Cardiovascular: Regular rate/rhythm, Normal S1 S2 Gastrointestinal: Normal bowel sounds, No tenderness Musculoskeletal: No tenderness Integumentary: No rashes Neurological: Normal speech, Normal tone, Normal affect Lymphatics: No axilla or inguinal lymphadenopathy - Studies Laboratory Data (last 24 hrs) 01/11/19 20:00: PT 11.6, INR 0.98 01/11/19 20:00: WBC 7.1, Hgb 14.5, Hct 43.4, Plt Count 274 01/11/19 20:00: Sodium 142, Potassium 4.0, BUN 18, Creatinine 0.86, Glucose 170 H, Magnesium 1.8, Total Bilirubin 0.3, AST 15, ALT 32, Alkaline Phosphatase 95 Medications List Reviewed: Yes Assessment And Plan - Current Problems (Diagnosis) (1) Acute exacerbation of chronic obstructive pulmonary disease (COPD) Current Visit: Yes Status: Acute Plan: Acute exacerbation of her chronic COPD. Currently improving -albuterol and ipratropium nebulizer, steroids, oxygen at this time -pulmonology consulted appreciated recommendations at this time -monitor for next 24-48 hr for improvement -patient will need a new inhalers when discharged home per pulmonology recommendation Discharge Plan: Home Plan to discharge in: 48 Hours - Code Status/Comfort Care Code Status Assessed: Yes Critical Care: No
[2019-01-12] MEDS ORDERED: GLUCAGON 1 MG/VIAL IM PRN (15:12)
[2019-01-12] MEDS ORDERED: D50W 25 GM/50 ML SYRINGE IV PRN (15:12)
[2019-01-12] MEDS: INSULIN -REGULAR HUMAN 50 UNIT/0.5 ML ML SQ SCH ×2 (17:54→20:27)
[2019-01-13] MEDS: METHYLPREDNISOLONE 125 MG INJ IV SCH ×3 (01:20→13:33)
[2019-01-13] MEDS: IPRATROPIUM BROM 0.5MG/2.5ML NEB SCH ×4 (02:00→20:00)
[2019-01-13] MEDS: ALBUTEROL 2.5 MG/3 ML NEB SOL NEB SCH ×4 (02:00→20:00)
[2019-01-13] MEDS: CEFTRIAXONE/SWI 1gm 1 GM/10 ML SYR IV SCH (05:19)
[2019-01-13] MEDS: INSULIN -REGULAR HUMAN 50 UNIT/0.5 ML ML SQ SCH ×4 (07:30→21:04)
[2019-01-13] MEDS: GUAIFENESIN 600 MG SA TAB PO SCH ×2 (08:36→21:03)
[2019-01-13] MEDS: GUAIFENESIN/CODEINE 5ML UCUP PO PRN ×2 (08:36→22:30)
--- NOTE | 2019-01-13 15:47 | P.PN ---
Subjective Date of Service: 01/13/19 Chief Complaint: Acute COPD exacerbation Patient seen and examined with RN, no night event, was sitting comfortable and eating breakfast Still having wheezing, labs reviewed Denies CP or SOB Review of Systems 10-point ROS is otherwise unremarkable Physical Examination - Vital Signs Temperature: 97.6 F Blood Pressure: 128/81 Pulse: 104 Respirations: 20 Pulse Ox (%): 99 - Physical Exam General: Alert, Oriented x3 HEENT: Atraumatic, Normocephalic, PERRLA Neck: JVD not distended Respiratory: Clear to auscultation bilaterally, Normal air movement, Expiratory wheezes, Inspiratory wheezes Cardiovascular: No edema, Regular rate/rhythm, Normal S1 S2, No murmurs Gastrointestinal: Normal bowel sounds, Soft and benign, Non-distended Musculoskeletal: No clubbing, No swelling Integumentary: No rashes Neurological: Normal strength at 5/5 x4 extr - Studies Microbiology Data (last 24 hrs): 01/12/19 11:50 Sputum Gram Stain - Final Medications List Reviewed: Yes Assessment And Plan - Current Problems (Diagnosis) (1) Acute exacerbation of chronic obstructive pulmonary disease (COPD) Current Visit: Yes Status: Acute (2) COPD exacerbation Onset Date: 11/26/15 Current Visit: No Status: Acute - Plan COPD exacerbation Continue antibiotics Solumedrol DuoNeb q.6 hr Pulmonary consult f/up cutlures Discharge Plan: Home Plan to discharge in: 24 Hours
[2019-01-13] MEDS ORDERED: METHYLPREDNISOLONE 40 MG INJ IV SCH (21:00)
[2019-01-14] MEDS: ALBUTEROL 2.5 MG/3 ML NEB SOL NEB SCH ×4 (02:00→19:39)
[2019-01-14] MEDS: IPRATROPIUM BROM 0.5MG/2.5ML NEB SCH ×4 (02:00→19:39)
[2019-01-14] MEDS: CEFTRIAXONE/SWI 1gm 1 GM/10 ML SYR IV SCH (05:07)
[2019-01-14 06:46] LABS: ALT/SGPT 26 U/L (12-78); AST/SGOT 12 U/L (15-37); Albumin 3.6 g/dL (3.4-5.0); Alkaline Phosphatase 77 U/L (45-117); BUN Blood Urea Nitrogen 16 mg/dL (7-18); Bicarbonate 31 mmol/L (21-32); Bilirubin Total 0.2 mg/dL (0.2-1.0); Glucose Level 188 mg/dL (74-106); Potassium 4.4 mmol/L (3.5-5.1); Protein, Total 6.2 g/dL (6.4-8.2); Sodium Level 143 mmol/L (136-145)
[2019-01-14] MEDS: INSULIN -REGULAR HUMAN 50 UNIT/0.5 ML ML SQ SCH ×4 (07:30→21:00)
[2019-01-14] MEDS ORDERED: FUROSEMIDE 20 MG/ 2ML VIAL IV ONE (08:36)
--- NOTE | 2019-01-14 08:40 | P.PN ---
Subjective Date of Service: 01/14/19 Chief Complaint: COPD exacerbation Patient is steadily improving apparently she walked around the eye this morning cover developed a coughing spell became short of breath Review of Systems General: Weakness Respiratory: Cough, Shortness of Breath Physical Examination - Vital Signs Temperature: 97.6 F Blood Pressure: 174/83 Pulse: 97 Respirations: 20 Pulse Ox (%): 98 - Physical Exam General: Alert, Oriented x3, Mild distress Respiratory: Expiratory wheezes Cardiovascular: Normal pulses, Regular rate/rhythm - Studies Microbiology Data (last 24 hrs): 01/12/19 00:10 Clean Catch Urine [place] Count - Final BETWEEN 10,000 & 100,000 CFU/ML 01/12/19 00:10 Clean Catch Urine - Final 01/12/19 11:50 Sputum Gram Stain - Final Medications List Reviewed: Yes Assessment & Plan - Problems (Diagnosis) (1) COPD exacerbation Onset Date: 11/26/15 Current Visit: No Status: Acute Plan: Patient admitted with COPD exacerbation will having significant coughing spells continue with steroids I have added Dalresp continue with bronchodilators. Change to p.o. levofloxacin 1 dose of Lasix 2D echo
[2019-01-14] MEDS ORDERED: METHYLPREDNISOLONE 40 MG INJ IV SCH (09:00)
[2019-01-14] MEDS: PROMETHAZINE-DM 5 ML OSYR PO SCH ×3 (09:16→21:14)
[2019-01-14] MEDS: ROFLUMILAST 500 MCG TABLET PO SCH (09:18)
[2019-01-14] MEDS: GUAIFENESIN 600 MG SA TAB PO SCH ×2 (09:18→21:14)
[2019-01-14] MEDS: predniSONE 20 MG TAB PO SCH ×2 (09:18→21:14)
[2019-01-14] MEDS: levoFLOXacin 500 MG TAB PO SCH (09:18)
[2019-01-14] MEDS: FAMOTIDINE 20 MG TAB PO SCH ×2 (09:18→21:14)
[2019-01-14 10:28] LABS: Arterial Blood Carboxyhemoglob 1.3 % (0-1.5); Blood Gas Oxyhemoglobin 90.8 % (94-97); Blood O2 Saturation 92.6 % (92-98.5)
--- NOTE | 2019-01-14 14:06 | P.PN ---
Subjective Date of Service: 01/14/19 Chief Complaint: COPD exacerbation Patient seen and examined with RN, no night event, pt was having coughing and dyspnea with walking pt is saying she is not ready for dc and she is still having sob Review of Systems 10-point ROS is otherwise unremarkable Physical Examination - Vital Signs Temperature: 97.9 F Blood Pressure: 177/94 Pulse: 90 Respirations: 20 Pulse Ox (%): 95 - Physical Exam General: Alert, Oriented x3 HEENT: Atraumatic, Normocephalic Neck: Supple, JVD not distended Respiratory: Normal air movement, Expiratory wheezes Cardiovascular: Normal pulses, Regular rate/rhythm, Normal S1 S2 Gastrointestinal: Normal bowel sounds, Soft and benign, Non-distended Integumentary: No rashes Neurological: Normal strength at 5/5 x4 extr - Studies Microbiology Data (last 24 hrs): 01/12/19 11:50 Sputum Gram Stain - Final 01/12/19 11:50 Sputum Culture & Sensitivity - Final 01/12/19 00:10 Clean Catch Urine [place] Count - Final BETWEEN 10,000 & 100,000 CFU/ML 01/12/19 00:10 Clean Catch Urine - Final Medications List Reviewed: Yes Assessment And Plan - Current Problems (Diagnosis) (1) Acute exacerbation of chronic obstructive pulmonary disease (COPD) Current Visit: Yes Status: Acute (2) COPD exacerbation Onset Date: 11/26/15 Current Visit: No Status: Acute - Plan COPD exacerbation Continue antibiotics switch to levaquin Solumedrol tapering DuoNeb q.6 hr Pulmonary consult dvt ppx
--- NOTE | 2019-01-14 17:15 | ECHO ---
HEIGHT: 5 ft 2 in WEIGHT: 165 lb 6.4 oz DATE OF STUDY: 01/14/[address]: Javier Holden MD 2-DIMENSIONAL: YES M.MODE: YES DOPPLER: YES COLOR FLOW: YES TDS: YES PORTABLE: NO DEFINITY: NO BUBBLE STUDY: NO DIAGNOSIS: SHORTNESS OF BREATH, COPD CARDIAC HISTORY: CATHERIZATION: NO SURGERY: NO PROSTHETIC VALVE: NO PACEMAKER: NO MEASUREMENTS (cm) DIASTOLIC (NORMALS) SYSTOLIC (NORMALS) IVSd 0.9 (0.6-1.2) LA Diam 3.3 (1.9-4.0) LVEF 69% LVIDd 4.1 (3.5-5.7) LVIDs 2.5 (2.0-3.5) %FS 38% LVPWd 1.0 (0.6-1.2) Ao Diam 2.7 (2.0-3.7) 2 DIMENSIONAL ASSESSMENT: RIGHT ATRIUM: NORMAL LEFT ATRIUM: NORMAL RIGHT VENTRICLE: NORMAL LEFT VENTRICLE: NORMAL TRICUSPID VALVE: NORMAL MITRAL VALVE: NORMAL PULMONIC VALVE: NORMAL AORTIC VALVE: NORMAL PERICARDIAL EFFUSION: NONE AORTIC ROOT: NORMAL LEFT VENTRICULAR WALL MOTION: NORMAL DOPPLER/COLOR FLOW: IMPAIRED LEFT VENTRICULAR RELAXATION. COMMENTS: NORMAL LEFT VENTRICULAR EJECTION FRACTION. IMPAIRED LEFT VENTRICULAR RELAXATION. TECHNICALLY DIFFICULT STUDY. TECHNOLOGIST: Miguel ROGERS
[2019-01-15] MEDS: ALBUTEROL 2.5 MG/3 ML NEB SOL NEB SCH ×3 (01:25→13:13)
[2019-01-15] MEDS: IPRATROPIUM BROM 0.5MG/2.5ML NEB SCH ×3 (01:25→13:13)
[2019-01-15] MEDS: PROMETHAZINE-DM 5 ML OSYR PO SCH ×4 (03:46→20:37)
[2019-01-15] MEDS: INSULIN -REGULAR HUMAN 50 UNIT/0.5 ML ML SQ SCH ×4 (07:30→20:46)
[2019-01-15] MEDS: ROFLUMILAST 500 MCG TABLET PO SCH (09:00)
[2019-01-15] MEDS: predniSONE 20 MG TAB PO SCH ×2 (09:00→20:36)
[2019-01-15] MEDS: levoFLOXacin 500 MG TAB PO SCH (09:00)
[2019-01-15] MEDS: GUAIFENESIN 600 MG SA TAB PO SCH ×2 (09:00→20:36)
[2019-01-15] MEDS: FAMOTIDINE 20 MG TAB PO SCH ×2 (09:00→20:36)
--- NOTE | 2019-01-15 16:55 | P.DS ---
Admission Date: 01/12/19 Discharge Date: 01/15/19 Primary Care Provider: [facility] Disposition: ROUTINE DISCHARGE Discharge Condition: GOOD Reason for Admission: COPD exacerbation Consultations: Pulmonary-Dr. Holden Procedures: Medical problem list: Shortness of breath secondary to COPD exacerbation with possible underlying bronchitis Hypertension Diabetes mellitus type 2 Hyperlipidemia Brief History of Present Illness: 63-year-old female presents to the ER with shortness of breath. Patient found to have COPD exacerbation. Patient was admitted for treatment. Hospital Course: Patient presented with shortness of breath secondary to COPD exacerbation with possible underlying bronchitis. Patient did well in her stay. Patient seen and evaluated by pulmonology. At discharge she is without any significant shortness of breath. COPD currently stable at this time. Patient requires long -term oxygen for her treatment of COPD. At discharge she will continue with prednisone 20 mg 1 pill twice daily for 5 days then 1 pill once daily for 5 days. Patient will also continue with Levaquin 500 mg once daily for 4 more days. Pulmonology has adjusted her COPD medication. Patient will no longer take Spiriva. New medications include Stiolto and Daliresp. Patient will continue with Stiolto 2 puffs daily and Daliresp 500 mcg 1 pill daily. Patient will also continue with Pro air 2 puffs 3 times a day as needed for shortness of breath. Recommend a follow up with pulmonology in 1-2 weeks to follow up this hospitalization. Patient did qualify for home oxygen prior to discharge. Patient will continue with home oxygen to maintain sats above 90%. Patient with hypertension. Patient will continue with lisinopril 2.5 mg 1 pill daily. Further adjustment in medication may be required. This can be done by her PCP. Patient with diabetes mellitus type 2. Patient will continue with metformin 500 mg 1 pill twice daily. Recommended maintain blood sugars less 140 fasting and less than 200 after meals. Further adjustment can be done by her PCP. Patient with hyperlipidemia. Patient will continue with Lipitor 20 mg daily. Vital Signs/Physical Exam: Temp Pulse Resp BP Pulse Ox 97.0 F 96 H 16 169/82 H 95 01/15/19 16:00 01/15/19 16:00 01/15/19 16:00 01/15/19 16:00 01/15/19 16:00 General: Alert, In no apparent distress, Oriented x3, Cooperative HEENT: Atraumatic Neck: Supple Respiratory: Clear to auscultation bilaterally, Normal air movement Cardiovascular: Normal pulses, Regular rate/rhythm Gastrointestinal: Normal bowel sounds, Soft and benign, Non-distended, No tenderness, No masses, No rebound, No guarding Musculoskeletal: No erythema, No tenderness, No warmth Integumentary: No tenderness/swelling, No erythema, No warmth, No cyanosis Neurological: Normal speech, Normal strength at 5/5 x4 extr, Normal tone Laboratory Data at Discharge: WBC 6.5 K/uL (4.3-10.9) 01/12/19 05:01 Hgb 14.4 g/dL (12.0-15.0) 01/12/19 05:01 Hct 42.9 % (36.0-45.0) 01/12/19 05:01 Plt Count 274 K/uL (152-406) 01/12/19 05:01 PT 11.6 SECONDS (9.5-12.5) 01/11/19 20:00 INR 0.98 01/11/19 20:00 Sodium 143 mmol/L (136-145) 01/14/19 05:50 Potassium 4.4 mmol/L (3.5-5.1) 01/14/19 05:50 BUN 16 mg/dL (7-18) 01/14/19 05:50 Creatinine 0.63 mg/dL (0.55-1.3) 01/14/19 05:50 Glucose 188 mg/dL (74-106) H 01/14/19 05:50 Magnesium 1.8 mg/dL (1.8-2.4) 01/11/19 20:00 Total Bilirubin 0.2 mg/dL (0.2-1.0) 01/14/19 05:50 AST 12 U/L (15-37) L 01/14/19 05:50 ALT 26 U/L (12-78) 01/14/19 05:50 Alkaline Phosphatase 77 U/L (45-117) 01/14/19 05:50 Home Medications: Atorvastatin Calcium [Lipitor*] 1 tab PO BEDTIME 01/11/19 Lisinopril [Zestril] 1 tab PO DAILY 01/11/19 Metformin HCl [Glucophage*] 1 tab PO BID 01/11/19 Tiotropium P[place] [Spiriva Respimat] 2 puff IH DAILY 01/11/19 Albuterol Sulfate [Proair Hfa] 2 puff IH TID PRN #1 hfa.aer.ad 01/15/19 Roflumilast [Daliresp*] 500 mcg PO DAILY #30 tablet 01/15/19 Tiotropium Br/Olodaterol HCl [Stiolto Respimat Inhal [place]] 2 puff IH DAILY #1 mist.inhal 01/15/19 levoFLOXacin [Levaquin*] 500 mg PO DAILY #4 tab 01/15/19 predniSONE [Prednisone*] 20 mg PO SEECOM #15 tab 01/15/19 New Medications: Albuterol Sulfate [Proair Hfa] 2 puff IH TID PRN #1 hfa.aer.ad PRN Reason: Shortness Of Breath levoFLOXacin [Levaquin*] 500 mg PO DAILY #4 tab predniSONE [Prednisone*] 20 mg PO SEECOM #15 tab Roflumilast [Daliresp*] 500 mcg PO DAILY #30 tablet Tiotropium Br/Olodaterol HCl [Stiolto Respimat Inhal [place]] 2 puff IH DAILY #1 mist.inhal Patient Discharge Instructions: 1. Patient will follow up with her [facility] in 1 week to follow up this hospitalization. 2. Patient presented with shortness of breast secondary to COPD exacerbation with possible underlying bronchitis. Patient did well in her stay. Patient seen and evaluated by pulmonology. At discharge she will continue with prednisone 20 mg 1 pill twice daily for 5 days then 1 pill once daily for 5 days. Patient will also continue with Levaquin 500 mg once daily for 4 more days. Pulmonology has adjusted her COPD medication. Patient will no longer take Spiriva. New medications include Stiolto and Daliresp. Patient will continue with Stiolto 2 puffs daily and Daliresp 500 mcg 1 pill daily. Patient will also continue with Pro air 2 puffs 3 times a day as needed for shortness of breath. Recommend a follow up with pulmonology in 1-2 weeks to follow up this hospitalization. Patient did qualify for home oxygen prior to discharge. Patient will continue with home oxygen to maintain sats above 90%. 3. Patient with hypertension. Patient will continue with lisinopril 2.5 mg 1 pill daily. Further adjustment in medication may be required. This can be done by her PCP. 4. Patient with diabetes mellitus type 2. Patient will continue with metformin 500 mg 1 pill twice daily. Recommended maintain blood sugars less 140 fasting and less than 200 after meals. Further adjustment can be done by her PCP. 5. Patient with hyperlipidemia. Patient will continue with Lipitor 20 mg daily. Diet: ADA Activity: Fall precautions Followup: Javier Holden MD [ACTIVE - CAN ADMIT] - Time spent managing pt's care (in minutes): 55
[2019-01-15] MEDS ORDERED: METFORMIN HCL 500 MG TAB PO SCH (17:00)
[2019-01-15 20:47] VITALS: BP 160/74; TEMP 98.2
[2019-01-15] MEDS ORDERED: ATORVASTATIN 20 MG TAB PO SCH (21:00)
[2019-01-15 21:59] VITALS: O2SAT 92
[2019-01-16] MEDS ORDERED: LISINOPRIL 5 MG TAB PO SCH (09:00)
--- NOTE | 2019-01-21 10:56 | EKG ---
Test Date: 2019-01-11 Test Time: 20:10:50 Jewel Bearing Driller: RR MEASUREMENT RESULTS: Intervals: Rate: 102 ND: 130 QRSD: 92 QT: 358 QTc: 466 [place]: P: 74 ND: 130 QRS: -71 T: 73 INTERPRETIVE STATEMENTS: Sinus tachycardia Left anterior fascicular block Minimal voltage criteria for LVH, may be normal variant Cannot rule out Septal infarct, age undetermined Abnormal ECG Compared to ECG 12/20/2018 05:27:23 Left ventricular hypertrophy now present Possible myocardial infarct finding now present Sinus rhythm no longer present Electronically Signed On 01-12-19 10:34:36 CDT by Jean Paul Manriquez
== END 2019-01-15 21:02 | disposition home or self-care (01) | DRG 192 ==
LOC: ER 19:13 → ERHOLD 22:00 → 2ND 22:13 → OBSVTOIN 01-12 12:58
PROVIDERS: ADMIT Hospitalist; ATTEND Family Medicine
DX: J44.1 Chronic obstructive pulmonary disease with (acute) exacerbation (principal); E11.9 Type 2 diabetes mellitus without complications; I10 Essential (primary) hypertension; E78.5 Hyperlipidemia, unspecified; Z87.891 Personal history of nicotine dependence
CPT/HCPCS: 36415; 71045; 80048; 80053; 80076; 81003; 81015; 82805; 82962; 83735; 83880; 84484; 85025; 85610; 87070; 87086; 87088; 87205; 93005; 93306; 94640; 96374; 99285; G0378; J0696; J1940; J2405; J2920; J2930; J7030; J7512

== ENCOUNTER 2019-08-04 10:34 | Emergency (ER) | payer OTHER ==
[2019-08-04] MEDS ORDERED: IPRATROPIUM BROM 0.5MG/2.5ML ONE (11:06)
[2019-08-04] MEDS ORDERED: LEVALBUTEROL 1.25 MG/3 ML NEB ONE (11:06)
[2019-08-04] MEDS ORDERED: dexAMETHasone 10 MG/ML VIAL ONE (11:16)
[2019-08-04] MEDS ORDERED: NA CHLORIDE 0.9% 1,000 ML ONE (11:17)
[2019-08-04] MEDS ORDERED: ACETAMINOPHEN 500 MG TAB ONE (11:17)
[2019-08-04] MEDS ORDERED: Magnesium Sulfate 2gm IVPB 2 G/50 ML BAG IV ONE (11:17)
[2019-08-04 11:30] LABS: Absolute Lymphocytes (CBC) 1.3 K/uL (0.7-4.9); Basophils % 0.6 % (0-1.3); Hematocrit 40.5 % (36.0-45.0); Lymphocytes % 17.5 % (15.3-44.8); MPV 8.9 fL (7.6-11.3); RBC Red Blood Cell Count 4.25 M/uL (3.86-4.86)
[2019-08-04 11:34] LABS: Protime INR 0.93
[2019-08-04 11:52] LABS: ALT/SGPT 44 U/L (12-78); AST/SGOT 19 U/L (15-37); Alkaline Phosphatase 71 U/L (45-117); BUN Blood Urea Nitrogen 15 mg/dL (7-18); Bicarbonate 28 mmol/L (21-32); Bilirubin Direct 0.1 mg/dL (0-0.2); Bilirubin Total 0.3 mg/dL (0.2-1.0); Glucose Level 103 mg/dL (74-106); NT PRO-BNP 59 pg/mL (<125); Potassium 3.7 mmol/L (3.5-5.1); Protein, Total 6.9 g/dL (6.4-8.2); Sodium Level 141 mmol/L (136-145); Troponin (Emerg Dept Use Only) < 0.02 ng/mL (0.0-0.045)
--- NOTE | 2019-08-04 12:19 | RAD REPORT ---
EXAM DESCRIPTION: Mary Alice Henderson (2 Views)08/04/2019 12:04 pm CLINICAL HISTORY: Cough COMPARISON: December 2018 FINDINGS: The lungs appear clear of acute infiltrate. The heart is normal size IMPRESSION: No acute abnormalities displayed
[2019-08-04] MEDS ORDERED: NA CHLORIDE 0.9% 100 ML IV ONE (12:58)
--- NOTE | 2019-08-04 12:59 | ER ---
Nurse's Notes [facility] Name: Cornelia Fairbanks Age: 63 yrs Sex: Female : 1955 Arrival Date: 08/04/2019 Time: 10:36 Bed 20 Private MD: Javier Holden K Diagnosis: SHORTNESS OF BREATH;COPD EXACERBATION Presentation: 08/04 10:39 Presenting complaint: Patient states: Dr cough, dry throat, and shortness of breath x 3 jl7 days. Transition of care: patient was not received from another setting of care. Onset of symptoms was August 01, 2019. Risk Assessment: Do you want to hurt yourself or someone else? Patient reports no desire to harm self or others. Initial Sepsis Screen: Does the patient meet any 2 criteria? HR > 90 bpm. No. Patient's initial sepsis screen is negative. Does the patient have a suspected source of infection? No. Patient's initial sepsis screen is negative. Care prior to arrival: None. 10:39 Method Of Arrival: Ambulatory [facility] 10:39 Acuity: GALDINO 3 jl7 Triage Assessment: 10:46 General: Appears in no apparent distress. comfortable, ill, Behavior is cooperative, bp appropriate for age, anxious. Pain: Denies pain. EENT: No deficits noted. Neuro: No deficits noted. Cardiovascular: No deficits noted. Respiratory: Reports shortness of breath cough that is. GI: No signs and/or symptoms were reported involving the gastrointestinal system. : No signs and/or symptoms were reported regarding the genitourinary system. Derm: No deficits noted. Musculoskeletal: No deficits noted. Historical: - Allergies: 10:44 NKDA; jl7 - Home Meds: 10:44 Albuterol Inhl [Active]; atorvastatin 20 mg Oral tab 1 tab once daily [Active]; Metformin Oral [Active]; Triamterene-Hydrochlorothiazid Oral [Active]; Prednisone Oral [Active]; Omeprazole Oral [Active]; Stiolto Respimat 2.5-2.5 mcg/actuation inhalation mist 2 puffs once daily [Active]; Spiriva with HandiHaler inhalation [Active]; ProAir HFA inhalation inhalation [Active]; - PMHx: 10:44 AAA; Asthma; COPD; CVA; Depression; Diabetes - NIDDM; Hypertension; Kidney stones; jl7 Myocardial infarction; - PSHx: 10:44 Kidney stents; jl7 - Immunization history:: Adult Immunizations up to date. - Social history:: Smoking status: Patient/guardian denies using tobacco. - Ebola Screening: : No symptoms or risks identified at this time. - Family history:: not pertinent. - Hospitalizations: : No recent hospitalization is reported. Screenin:47 Abuse screen: Denies threats or abuse. Denies injuries from another. Nutritional bp screening: No deficits noted. Tuberculosis screening: No symptoms or risk factors identified. Fall Risk None identified. Assessment: 10:46 General: SEE TRIAGE NOTE. bp 11:37 Reassessment: ALL CURRENT ORDERS COMPLETED, RESULTS PENDING. bp 12:41 Reassessment: ALL CURRENT ORDERS COMPLETED, FURTHER ABX PENDING FROM PHARMACY. bp 12:49 Reassessment: PT AMBULATED WITH STEADY GAIT, NO DESAT. bp 13:14 Reassessment: PT D/C HOME AMBULATORY WITH FAMILY, DX WITH COPD EXACERBATION. bp Vital Signs: 10:44 BP 140 / 99; Pulse 111; Resp 19 S; Temp 99.3(O); Pulse Ox 96% on R/A; Pain 0/10; jl7 11:13 BP 128 / 83; Pulse 104; Resp 16; Pulse Ox 100% ; bp 11:38 BP 113 / 83; Pulse 100; Resp 18; Pulse Ox 100% ; bp 12:40 BP 127 / 71; Pulse 97; Resp 11; Pulse Ox 95% on R/A; bp 12:50 BP 142 / 83; Pulse 99; Resp 11; Pulse Ox 95% ; bp 12:50 AFTER AMBULATION bp ED Course: 10:36 Patient arrived in ED. mr 10:37 None, None is Private Physician. mr 10:37 Javier Holden MD is Private Physician. mr 10:40 Triage completed. jl7 10:44 Arm band placed on right wrist. jl7 10:45 Cecilio Haywood, CHENCHO is Primary Nurse. bp 10:46 Zaki Cardona MD is Attending Physician. wa 10:47 Patient has correct armband on for positive identification. Bed in low position. Call bp light in reach. Side rails up X2. Adult w/ patient. 11:05 Inserted saline lock: 20 gauge in right antecubital area, using aseptic technique. dh3 Blood collected. 11:05 Initial lab(s) drawn, by nv, sent to lab. dh3 11:05 First set of blood cultures drawn by nv. dh3 11:10 Flu and/or RSV swab sent to lab. dh3 11:20 Second set of blood cultures drawn by nv. dh3 11:34 EKG done, by certified control systems technician. reviewed by Zaki Cardona MD. at1 12:04 XRAY Chest Pa And Lat (2 Views) In Process Unspecified. EDMS 12:58 Javier Holden MD is Referral Physician. wa 13:15 No provider procedures requiring assistance completed. IV discontinued, intact, bp bleeding controlled, No redness/swelling at site. Pressure dressing applied. Administered Medications: 11:05 Drug: Xopenex 1.25 mg Route: Inhalation; bp 11:05 Drug: AtroVENT Aerosol 0.5 mg Route: Inhalation; bp 11:15 Drug: Decadron - Dexamethasone 10 mg Route: IVP; Site: right antecubital; bp 12:21 Follow up: Response: No adverse reaction bp 11:15 Drug: Magnesium Sulfate 2 grams Route: IVPB; Infused Over: 2 hrs; Site: right bp antecubital; 13:08 Follow up: IV Status: Completed infusion; IV Intake: 50ml bp 11:15 Drug: Tylenol 1000 mg Route: PO; bp 12:21 Follow up: Response: No adverse reaction bp 11:15 Drug: NS 0.9% 1000 ml Route: IV; Rate: 1 bolus; Site: right antecubital; bp 13:08 Follow up: IV Status: Completed infusion; IV Intake: 1000ml bp 12:55 Drug: Rocephin - (cefTRIAXone) 2 grams Route: IVPB; Infused Over: 30 mins; Site: right bp antecubital; 13:07 Follow up: IV Status: Completed infusion; IV Intake: 50ml bp Intake: 13:07 IV: 50ml; Total: 50ml. bp 13:08 IV: 1000ml; Total: 1050ml. bp 13:08 IV: 50ml; Total: 1100ml. bp Outcome: 12:59 Discharge ordered by . wa 13:14 Discharged to home ambulatory, with family. bp 13:14 Condition: stable 13:14 Discharge instructions given to patient, Instructed on discharge instructions, follow up and referral plans. medication usage, Demonstrated understanding of instructions, follow-up care, medications, Prescriptions given X 3. 13:18 Patient left the ED. bp Signatures: Dispatcher [employer] EDPiper Aguiar Ernestina, web application tester EKG Tat1 Analilia Ennis, RN RN jl7 [address] 3 Zaki Cardona MD MD wa Peltier, Brian, RN RN bp Corrections: (The following items were deleted from the chart) 11:15 11:12 Inserted saline lock: 20 gauge in right antecubital area, using aseptic dh3 technique. Blood collected. bp
--- NOTE | 2019-08-04 12:59 | EDPHYS ---
Physician Documentation [facility] Name: Cornelia Fairbanks Age: 63 yrs Sex: Female : 1955 Arrival Date: 08/04/2019 Time: 10:36 Bed 20 Private MD: Javier Holden K ED Physician Zaki Cardona HPI: 08/04 10:57 This 63 yrs old Female presents to ER via Ambulatory with complaints of Cough.wa 10:57 The patient or guardian reports cough, described as mild, difficulty breathing. Onset: wa The symptoms/episode began/occurred 3 day(s) ago. Severity of symptoms: At their worst the symptoms were moderate, in the emergency department the symptoms are unchanged, despite home interventions. Modifying factors: The symptoms are alleviated by nothing, the symptoms are aggravated by exertion. Associated signs and symptoms: Pertinent positives: sore throat, Pertinent negatives: chest pain, diarrhea, ear ache, fever, nausea, rhinorrhea, vomiting. The patient has experienced similar episodes in the past, several times. The patient has not recently seen a physician, the patient's primary care provider is Dr. Dr. Sung. 63 yo F c/o 3 days of worsening SOB. worse with minimal exertion. admits to mild dry cough x same number of days. denies chest pain, dizziness, fever or sweats. admits to mild sore throat and feeling mouth is dry. using her albuterol and oxygen at home. also taking Robitussin. states not improving. h/o COPD. Quit smoking 3 yrs ago. . Historical: - Allergies: 10:44 NKDA; jl7 - Home Meds: 10:44 Albuterol Inhl [Active]; atorvastatin 20 mg Oral tab 1 tab once daily [Active]; jl7 Metformin Oral [Active]; Triamterene-Hydrochlorothiazid Oral [Active]; Prednisone Oral [Active]; Omeprazole Oral [Active]; Stiolto Respimat 2.5-2.5 mcg/actuation inhalation mist 2 puffs once daily [Active]; Spiriva with HandiHaler inhalation [Active]; ProAir HFA inhalation inhalation [Active]; - PMHx: 10:44 AAA; Asthma; COPD; CVA; Depression; Diabetes - NIDDM; Hypertension; Kidney stones; jl7 Myocardial infarction; - PSHx: 10:44 Kidney stents; jl7 - Immunization history:: Adult Immunizations up to date. - Social history:: Smoking status: Patient/guardian denies using tobacco. - Ebola Screening: : No symptoms or risks identified at this time. - Family history:: not pertinent. - Hospitalizations: : No recent hospitalization is reported. ROS: 11:01 Constitutional: Negative for fever, chills, and weight loss, Eyes: Negative for injury, wa pain, redness, and discharge, Neck: Negative for injury, pain, and swelling, Cardiovascular: Negative for chest pain, palpitations, and edema, Abdomen/GI: Negative for abdominal pain, nausea, vomiting, diarrhea, and constipation, Back: Negative for injury and pain, : Negative for injury, bleeding, discharge, and swelling, MS/Extremity: Negative for injury and deformity, Skin: Negative for injury, rash, and discoloration, Neuro: Negative for headache, weakness, numbness, tingling, and seizure, Psych: Negative for depression, anxiety, suicide ideation, homicidal ideation, and hallucinations. 11:01 ENT: Positive for sore throat, Negative for nasal discharge, rhinorrhea, sinus congestion. 11:01 Respiratory: Positive for cough, with no reported sputum, shortness of breath, on exertion. wheezing, inspiratory, expiratory. Exam: 11:02 Constitutional: This is a well developed, well nourished patient who is awake, alert, wa and in no acute distress. Head/Face: Normocephalic, atraumatic. Eyes: Pupils equal round and reactive to light, extra-ocular motions intact. Lids and lashes normal. Conjunctiva and sclera are non-icteric and not injected. Cornea within normal limits. Periorbital areas with no swelling, redness, or edema. Neck: Trachea midline, no thyromegaly or masses palpated, and no cervical lymphadenopathy. Supple, full range of motion without nuchal rigidity, or vertebral point tenderness. No Meningismus. Chest/axilla: Normal chest wall appearance and motion. Nontender with no deformity. No lesions are appreciated. Abdomen/GI: Soft, non-tender, with normal bowel sounds. No distension or tympany. No guarding or rebound. No evidence of tenderness throughout. Back: No spinal tenderness. No costovertebral tenderness. Full range of motion. Skin: Warm, dry with normal turgor. Normal color with no rashes, no lesions, and no evidence of cellulitis. MS/ Extremity: Pulses equal, no cyanosis. Neurovascular intact. Full, normal range of motion. Neuro: Awake and alert, GCS 15, oriented to person, place, time, and situation. Cranial nerves II-XII grossly intact. Motor strength 5/5 in all extremities. Sensory grossly intact. Cerebellar exam normal. Normal gait. Psych: Awake, alert, with orientation to person, place and time. Behavior, mood, and affect are within normal limits. 11:02 ENT: External ear(s): are unremarkable, Nose: is normal, Mouth: Oral mucosa: pink and intact, dry, Posterior pharynx: dry. no redness, swelling or exudate. 11:02 Cardiovascular: Rate: tachycardic, Rhythm: regular, Heart sounds: normal, Edema: is not appreciated, JVD: is not appreciated. 11:02 Respiratory: the patient does not display signs of respiratory distress, Respirations: normal, Breath sounds: decreased breath sounds, that are moderate, wheezing: that is moderate, is scattered, is heard diffusely. Vital Signs: 10:44 BP 140 / 99; Pulse 111; Resp 19 S; Temp 99.3(O); Pulse Ox 96% on R/A; Pain 0/10; jl7 11:13 BP 128 / 83; Pulse 104; Resp 16; Pulse Ox 100% ; bp 11:38 BP 113 / 83; Pulse 100; Resp 18; Pulse Ox 100% ; bp 12:40 BP 127 / 71; Pulse 97; Resp 11; Pulse Ox 95% on R/A; bp 12:50 BP 142 / 83; Pulse 99; Resp 11; Pulse Ox 95% ; bp 12:50 AFTER AMBULATION bp MDM: 10:46 Patient medically screened. wa 11:03 Differential Diagnosis: Bronchitis Influenza Upper Respiratory Infection Asthma wa Exacerbation Viral Syndrome Pneumonia. 11:28 Data reviewed: vital signs, nurses notes. Test interpretation: by ED physician or wa midlevel provider: EKG: HR 104. sinus tach. leftward axis with incomplete RBBB. no flipped T waves or ST depressions noted. 12:17 Test interpretation: by ED physician or midlevel provider: labs noted wnl. . Response wa to treatment: improved. speaking in full sentences. 12:40 Test interpretation: by ED physician or midlevel provider: plain radiologic studies, ma CXR: no acute process. 12:43 ED course: improved. states feels much better. vitals wnl. lung june clear. no wa wheezing at this time. Will ambulate and reassess. May be eligible for d/c if maintains sats with no resp distress on ambulation. . 12:56 ED course: walked pt in ED. spoke in full sentences the entire time with no distress. wa vitals wnl post walk. lungs clear. Will d/c home with close f/u with her pulm doc. . 08/04 10:56 Order name: Blood Culture Adult (2) ma 08/04 10:56 Order name: BMP; Complete Time: 12:10 ma 08/04 10:56 Order name: CBC with Diff; Complete Time: 12:10 ma 08/04 10:56 Order name: Hepatic Function; Complete Time: 12:10 ma 08/04 10:56 Order name: NT PRO-BNP; Complete Time: 12:10 ma 08/04 10:56 Order name: PT-INR; Complete Time: 12:10 ma 08/04 10:56 Order name: XRAY Chest Pa And Lat (2 Views); Complete Time: 12:40 ma 08/04 10:56 Order name: Troponin (emerg Dept Use Only); Complete Time: 12:10 ma 08/04 10:56 Order name: Flu; Complete Time: 12:09 ma 08/04 10:56 Order name: EKG; Complete Time: 10:57 ma 08/04 10:56 Order name: Cardiac monitoring; Complete Time: 11:04 ma 08/04 10:56 Order name: EKG - Nurse/Tech; Complete Time: 11:12 ma 08/04 10:56 Order name: IV Saline Lock; Complete Time: 11:12 ma 08/04 10:56 Order name: Labs collected and sent; Complete Time: 11:12 ma 08/04 10:56 Order name: O2 Per Protocol; Complete Time: 11:04 ma 08/04 10:56 Order name: O2 Sat Monitoring; Complete Time: 11:04 ma Administered Medications: 11:05 Drug: Xopenex 1.25 mg Route: Inhalation; bp 11:05 Drug: AtroVENT Aerosol 0.5 mg Route: Inhalation; bp 11:15 Drug: Decadron - Dexamethasone 10 mg Route: IVP; Site: right antecubital; bp 12:21 Follow up: Response: No adverse reaction bp 11:15 Drug: Magnesium Sulfate 2 grams Route: IVPB; Infused Over: 2 hrs; Site: right bp antecubital; 13:08 Follow up: IV Status: Completed infusion; IV Intake: 50ml bp 11:15 Drug: Tylenol 1000 mg Route: PO; bp 12:21 Follow up: Response: No adverse reaction bp 11:15 Drug: NS 0.9% 1000 ml Route: IV; Rate: 1 bolus; Site: right antecubital; bp 13:08 Follow up: IV Status: Completed infusion; IV Intake: 1000ml bp 12:55 Drug: Rocephin - (cefTRIAXone) 2 grams Route: IVPB; Infused Over: 30 mins; Site: right bp antecubital; 13:07 Follow up: IV Status: Completed infusion; IV Intake: 50ml bp Disposition: 08/04/19 12:59 Discharged to Home. Impression: SHORTNESS OF BREATH, COPD EXACERBATION. - Condition is Stable. - Discharge Instructions: Shortness of Breath, [id number], Chronic Obstructive Pulmonary Disease Exacerbation, [id number]. - Prescriptions for Albuterol Sulfate 2.5 mg /3 mL (0.083 %) Inhalation Solution for Nebulization - inhale 1 unit by NEBULIZATION route every 8 hours As needed; 1 box. Prednisone 20 mg Oral Tablet - take 2 tablets by ORAL route once daily for 4 days; 8 tablet. Zithromax Z- Juan J 250 mg Oral Tablet - take 1 tablet by ORAL route as directed for 5 days Day 1 - take two (2) tablets one time. Day 2, 3, 4 , 5 take one (1) tablet once daily.; 6 tablet. - Medication Reconciliation Form, Thank You Letter, Antibiotic Education, Prescription Opioid Use form. - Follow up: Javier Holden MD; When: 1 - 2 days; Reason: Re-evaluation by your physician. - Problem is an acute exacerbation. - Symptoms have improved. - Notes: please do albuterol treatments every 6 hours for the next 2 days then as needed. follow up with your lung doctor within the next 2 days for reevaluation. return to ER immediately if your breathing significantly worsen Signatures: Dispatcher [employer] Analilia Carrera RN RN jl7 Zaki Cardona MD MD wa Peltier, Brian RN RN bp Corrections: (The following items were deleted from the chart) 13:18 12:59 08/04/2019 12:59 Discharged to Home. Impression: SHORTNESS OF BREATH; COPD bp EXACERBATION. Condition is Stable. Forms are Medication Reconciliation Form, Thank You Letter, Antibiotic Education, Prescription Opioid Use. Follow up: Javier Holden; When: 1 - 2 days; Reason: Re-evaluation by your physician. Problem is an acute exacerbation. Symptoms have improved. lyssa
[2019-08-04] MEDS ORDERED: CEFTRIAXONE/SWI 2gm 2 GM/20 ML SYR IV ONE (13:00)
[2019-08-04 13:26] VITALS: TEMP 99.3
[2019-08-04 13:30] VITALS: O2SAT 95
[2019-08-04 13:32] VITALS: BP 142/83
--- NOTE | 2019-08-04 15:14 | EKG ---
Test Date: 2019-08-04 Test Time: 11:12:07 Document Examiner: RAVI MEASUREMENT RESULTS: Intervals: Rate: 104 AK: 130 QRSD: 92 QT: 362 QTc: 476 [place]: P: 77 AK: 130 QRS: -71 T: 65 INTERPRETIVE STATEMENTS: Sinus tachycardia Left anterior fascicular block Abnormal ECG Compared to ECG 01/11/2019 20:10:50 Left ventricular hypertrophy no longer present Myocardial infarct finding no longer present Electronically Signed On 08-04-19 15:13:46 CDT by Jean Paul Manriquez
== END 2019-08-04 13:18 | disposition home or self-care (01) ==
LOC: ER 10:34
DX: J44.1 Chronic obstructive pulmonary disease with (acute) exacerbation (principal); I10 Essential (primary) hypertension; E11.9 Type 2 diabetes mellitus without complications; F32.9 Major depressive disorder, single episode, unspecified; I25.2 Old myocardial infarction; Z87.891 Personal history of nicotine dependence
CPT/HCPCS: 96365; 93005; 87040 ×2; 85025; 80048; 36415; 85610; 80076; 84484; 83880; 87804 ×2; 71046; 96375; 99284; 96366; J1100; J3475; J0696; J7030

== ENCOUNTER 2020-05-02 10:30 | Emergency (ER) | payer OTHER ==
[2020-05-02 11:12] LABS: Urine Blood 2+ (NEG); Urine Glucose NEGATIVE (NEG); Urine Protein 3+ (NEG)
[2020-05-02 11:29] LABS: Absolute Lymphocytes (CBC) 1.9 K/uL (0.7-4.9); Basophils % 0.4 % (0-1.3); Hematocrit 42.4 % (36.0-45.0); Lymphocytes % 15.4 % (15.3-44.8); MPV 8.8 fL (7.6-11.3); RBC Red Blood Cell Count 4.36 M/uL (3.86-4.86)
--- NOTE | 2020-05-02 11:37 | RAD REPORT ---
EXAM DESCRIPTION: CT - Stone Protocol - 05/02/2020 11:28 am CLINICAL HISTORY: Flank pain. HEMATURIA COMPARISON: CTSTONE PROTOCOL dated 07/23/2015 TECHNIQUE: Axial images were obtained without oral or IV contrast. Lack of contrast limits solid org an and vascular assessment. The [id number] spans the entirety of the system partially obscuring uppermost abdomen and lung bases. Coronal reformatted images were obtained and reviewed. All CT scans are performed using dose optimization technique as appropriate and may include automated exposure control or mA/KV adjustment according to patient size. FINDINGS: Emphysematous lung bases are seen with a calcified granuloma in the left lower lobe, benig n. Small low-density hepatic lesion is present in the right lobe posteriorly measuring 8 mm, probably a benign cyst. No aggressive liver lesion biliary dilatation.Spleen is normal in size. The pancreas and adrenal glands are normal. No pathologic lymphadenopathy in the abdomen or pelvis. Several moderate sized right renal stones are present the largest in the midpole calyx measuring 12 m m (840 HU). Punctate stone is present in the superior calyx left kidney as well. Infrarenal abdominal aortic aneurysm is present measuring 4.9 cm, appearing enlarged from 2015 compar ative study at which time measured 3.8 cm. No bowel obstruction, free air, free fluid or abscess. Normal appendix noted.Small containing superio r ventral hernia. Sigmoid diverticulosis coli without diverticulitis. No significant bony abnormality. IMPRESSION: Multiple moderate sized right renal calculi are present without obstructive uropathy pre sent. Tiny punctate left renal calculus 4.9 cm infrarenal abdominal aortic aneurysm which has enlarged moderately since 2015 prior study.
[2020-05-02 12:00] LABS: Potassium 3.6 mmol/L (3.5-5.1)
[2020-05-02 12:01] LABS: Urine Bacteria >50 /HPF (<20); Urine Culture Reflex Order REFLEXED; Urine Urothelial Cells <5 /HPF (NONE SEEN)
[2020-05-02] MEDS ORDERED: NA CHLORIDE 0.9% 500 ML ONE (12:29)
[2020-05-02] MEDS ORDERED: CEFTRIAXONE/SWI 1gm 1 GM/10 ML SYR ONE (12:29)
--- NOTE | 2020-05-02 13:10 | EDPHYS ---
Physician Documentation [facility] Name: Cornelia Fairbanks Age: 64 yrs Sex: Female : 1955 Arrival Date: 05/02/2020 Time: 10:32 Bed 15 Private MD: ED Physician Kaushik Moore HPI: 05/02 12:34 This 64 yrs old Female presents to ER via Ambulatory with complaints of kb Urinary Retention. 12:34 The patient presents with urinary symptoms, dysuria, frequency. Onset: The kb symptoms/episode began/occurred Onset: The symptoms/episode began/occurred 3 day(s) ago. 12:34 Modifying factors: The symptoms are alleviated by nothing, the symptoms are aggravated kb by urinating. Associated signs and symptoms: Pertinent positives: dysuria, urinary frequency, Pertinent negatives: fever. Severity of symptoms: At their worst the symptoms were moderate, in the emergency department the symptoms are unchanged. The patient has not experienced similar symptoms in the past. The patient has not recently seen a physician. Pt reports burning with urination, frequency and trouble urinating for 3 days. Denies any pain. . Historical: - Allergies: 10:47 NKDA; ss - PMHx: 10:47 AAA; Asthma; CVA; Hypertension; Diabetes - NIDDM; Depression; COPD; Kidney stones; ss Myocardial infarction; - PSHx: 10:47 Kidney stents; ss - Immunization history:: Adult Immunizations up to date. - Social history:: Smoking status: Patient/guardian denies using tobacco, the patient reports quitting approximately 3 years ago. ROS: 12:33 Constitutional: Negative for fever, chills, and weight loss, Cardiovascular: Negative kb for chest pain, palpitations, and edema, Respiratory: Negative for shortness of breath, cough, wheezing, and pleuritic chest pain, Abdomen/GI: Negative for abdominal pain, nausea, vomiting, diarrhea, and constipation, Back: Negative for injury and pain, MS/Extremity: Negative for injury and deformity, Skin: Negative for injury, rash, and discoloration, Neuro: Negative for headache, weakness, numbness, tingling, and seizure. 12:33 : Positive for urinary symptoms, urinary frequency, burning with urination, difficulty urinating. Exam: 12:33 Constitutional: This is a well developed, well nourished patient who is awake, alert, kb and in no acute distress. Head/Face: Normocephalic, atraumatic. Chest/axilla: Normal chest wall appearance and motion. Nontender with no deformity. No lesions are appreciated. Cardiovascular: Regular rate and rhythm with a normal S1 and S2. No gallops, murmurs, or rubs. Normal PMI, no JVD. No pulse deficits. Respiratory: Lungs have equal breath sounds bilaterally, clear to auscultation and percussion. No rales, rhonchi or wheezes noted. No increased work of breathing, no retractions or nasal flaring. Abdomen/GI: Soft, non-tender, with normal bowel sounds. No distension or tympany. No guarding or rebound. No evidence of tenderness throughout. Back: No spinal tenderness. No costovertebral tenderness. Full range of motion. Skin: Warm, dry with normal turgor. Normal color with no rashes, no lesions, and no evidence of cellulitis. MS/ Extremity: Pulses equal, no cyanosis. Neurovascular intact. Full, normal range of motion. Neuro: Awake and alert, GCS 15, oriented to person, place, time, and situation. Cranial nerves II-XII grossly intact. Motor strength 5/5 in all extremities. Sensory grossly intact. Cerebellar exam normal. Normal gait. Vital Signs: 10:43 BP 145 / 79; Pulse 122; Resp 20; Temp 98.2(O); Pulse Ox 98% on R/A; Weight 72.57 kg; ss Height 5 ft. 2 in. (157.48 cm); Pain 6/10; 10:49 Temp 97.5(T); mt 14:05 BP 123 / 84; Pulse 100; Resp 18; Pulse Ox 98% ; Pain 0/10; ll1 10:43 Body Mass Index 29.26 (72.57 kg, 157.48 cm) ss MDM: 10:48 Patient medically screened. kb 12:33 Data reviewed: vital signs, nurses notes. Data interpreted: Pulse oximetry: on room air kb is 98 %. Interpretation: normal. Counseling: I had a detailed discussion with the patient and/or guardian regarding: the historical points, exam findings, and any diagnostic results supporting the discharge/admit diagnosis, lab results, radiology results, the need for outpatient follow up, a family practitioner, to return to the emergency department if symptoms worsen or persist or if there are any questions or concerns that arise at home. 12:33 ED course: Pt is aware of AAA. Educated on increase in size since 2014.. kb 05/02 10:48 Order name: Basic Metabolic Panel; Complete Time: 12:13 kb 05/02 10:48 Order name: CBC with Diff; Complete Time: 11:43 kb 05/02 10:48 Order name: Urine Microscopic Only; Complete Time: 12:13 kb 05/02 11:03 Order name: Urine Dipstick--Ancillary (enter results); Complete Time: 11:14 mt 05/02 12:02 Order name: Urine Culture EDMS 05/02 10:48 Order name: IV Saline Lock; Complete Time: 12:49 kb 05/02 10:48 Order name: Labs collected and sent; Complete Time: 12:49 kb 05/02 10:48 Order name: Urine Dipstick-Ancillary (obtain specimen); Complete Time: 10:57 kb 05/02 10:56 Order name: CT Stone Protocol; Complete Time: 11:43 kb Administered Medications: 12:49 Drug: Rocephin 1 grams Route: IV; Rate: calculated rate; Site: right antecubital; ll1 13:59 Follow up: Response: No adverse reaction; RASS: Alert and Calm (0); IV Status: ll1 Completed infusion; IV Intake: 500ml 12:49 Drug: NS 0.9% 500 ml Route: IV; Rate: bolus; Site: right antecubital; ll1 13:59 Follow up: Response: No adverse reaction; RASS: Alert and Calm (0); IV Status: ll1 Completed infusion; IV Intake: 20ml Disposition: 18:09 Co-signature as Attending Physician, Kaushik Moore MD I agree with the assessment and yahir plan of care. Disposition: 05/02/20 13:09 Discharged to Home. Impression: Urinary tract infection, site not specified. - Condition is Stable. - Discharge Instructions: Urinary Tract Infection, Adult, [id number]. - Prescriptions for Augmentin 875- 125 mg Oral Tablet - take 1 tablet by ORAL route every 12 hours for 10 days; 20 tablet. Pyridium 200 mg Oral Tablet - take 1 tablet by ORAL route every 8 hours for 3 days; 9 tablet. - Medication Reconciliation Form, Thank You Letter, Antibiotic Education, Prescription Opioid Use form. - Follow up: Emergency Department; When: As needed; Reason: Worsening of condition. Follow up: Private Physician; When: 2 - 3 days; Reason: Recheck today's complaints, Continuance of care, Re-evaluation by your physician. Signatures: Dispatcher [employer] EDOR Meaghan Joyner, AIRCRAFT COMMUNICATOR-C AIRCRAFT COMMUNICATOR-Kaushik Campuzano MD MD cha Smirch, Shelby, RN RN ss Sunny Durand RN RN ll1 Corrections: (The following items were deleted from the chart) 11:07 10:49 Stone Protocol+CT.RAD.BRZ ordered. EDOR EDMS 12:36 12:34 Onset: The symptoms/episode began/occurred kb hemant 14:00 10:48 Bladder Scanner ordered. kb ll1 14:05 13:09 05/02/2020 13:09 Discharged to Home. Impression: Urinary tract infection, site ll1 not specified. Condition is Stable. Discharge Instructions: Urinary Tract Infection, Adult, [id number]. Prescriptions for Augmentin 875-125 mg Oral Tablet - take 1 tablet by ORAL route every 12 hours for 10 days; 20 tablet. and Forms are Medication Reconciliation Form, Thank You Letter, Antibiotic Education, Prescription Opioid Use. Follow up: Emergency Department; When: As needed; Reason: Worsening of condition. Follow up: Private Physician; When: 2 - 3 days; Reason: Recheck today's complaints, Continuance of care, Re-evaluation by your physician. kb
--- NOTE | 2020-05-02 13:10 | ER ---
Nurse's Notes [facility] Name: Cornelia Fairbanks Age: 64 yrs Sex: Female : 1955 Arrival Date: 05/02/2020 Time: 10:32 Bed 15 Private MD: Diagnosis: Urinary tract infection, site not specified Presentation: 05/02 10:43 Chief complaint: Patient states: Burning with urination, suprapubic pressure and ss urgency that began 3 days ago. Pt reports that she has been drinking lots of water, but until now the last time she urinated was 0300. Pt states, "the last time this happened, I had a kidney stone.". Coronavirus screen: Patient denies a cough. Patient denies shortness of breath or difficulty breathing. Patient denies measured and/or subjective temperature greater than 100.4F prior to today's visit. Patient denies travel on a cruise ship or to a country the [facility] currently lists as an affected area. Patient denies contact with known and/or suspected case of COVID-19. Ebola Screen: Patient denies exposure to infectious person. Patient denies travel to an Ebola-affected area in the 21 days before illness onset. Initial Sepsis Screen: Does the patient meet any 2 criteria? No. Patient's initial sepsis screen is negative. Does the patient have a suspected source of infection? No. Patient's initial sepsis screen is negative. Risk Assessment: Do you want to hurt yourself or someone else? Patient reports no desire to harm self or others. Onset of symptoms was April 29, 2020. 10:43 Method Of Arrival: Ambulatory ss 10:43 Acuity: GALDINO 3 ss Historical: - Allergies: 10:47 NKDA; ss - PMHx: 10:47 AAA; Asthma; CVA; Hypertension; Diabetes - NIDDM; Depression; COPD; Kidney stones; ss Myocardial infarction; - PSHx: 10:47 Kidney stents; ss - Immunization history:: Adult Immunizations up to date. - Social history:: Smoking status: Patient/guardian denies using tobacco, the patient reports quitting approximately 3 years ago. Screenin:50 Abuse screen: Denies threats or abuse. Denies injuries from another. Nutritional ph screening: No deficits noted. Tuberculosis screening: No symptoms or risk factors identified. Fall Risk None identified. Assessment: 10:57 General: Appears in no apparent distress. comfortable, well groomed, Behavior is calm, ph cooperative, appropriate for age, Denies fever. Pain: Complains of pain in groin. Neuro: Level of Consciousness is awake, alert, obeys commands, Oriented to person, place, time, situation. Cardiovascular: Capillary refill < 3 seconds in bilateral fingers Patient's skin is warm and dry. Respiratory: Airway is patent Respiratory effort is even, unlabored. GI: Patient currently denies abdominal pain, diarrhea, nausea, vomiting. : Reports burning with urination, inability to void, pain in suprapubic area. Derm: Skin is intact, is healthy with good turgor, Skin is pink, warm \\T\\ dry. Musculoskeletal: Circulation, motion, and sensation intact. Range of motion: intact in all extremities. Vital Signs: 10:43 BP 145 / 79; Pulse 122; Resp 20; Temp 98.2(O); Pulse Ox 98% on R/A; Weight 72.57 kg; ss Height 5 ft. 2 in. (157.48 cm); Pain 6/10; 10:49 Temp 97.5(T); mt 14:05 BP 123 / 84; Pulse 100; Resp 18; Pulse Ox 98% ; Pain 0/10; ll1 10:43 Body Mass Index 29.26 (72.57 kg, 157.48 cm) ED Course: 10:32 Patient arrived in ED. fj1 10:46 Triage completed. ss 10:47 Meaghan Joyner FNP-C is [facility]. kb 10:47 Kaushik Moore MD is Attending Physician. kb 10:47 Laney Daly, CHENCHO is Primary Nurse. ph 10:47 Arm band placed on right wrist. ss 10:50 Patient has correct armband on for positive identification. Bed in low position. Call ph light in reach. Side rails up X 1. Pulse ox on. NIBP on. Door closed. Noise minimized. Warm blanket given. 11:26 CT completed. Patient tolerated procedure well. Patient moved back from CT. bq 11:28 CT Stone Protocol In Process Unspecified. EDMS 14:05 IV discontinued, intact, bleeding controlled, No redness/swelling at site. Pressure ll1 dressing applied, R AC. 14:30 No provider procedures requiring assistance completed. ll1 Administered Medications: 12:49 Drug: Rocephin 1 grams Route: IV; Rate: calculated rate; Site: right antecubital; ll1 13:59 Follow up: Response: No adverse reaction; RASS: Alert and Calm (0); IV Status: ll1 Completed infusion; IV Intake: 500ml 12:49 Drug: NS 0.9% 500 ml Route: IV; Rate: bolus; Site: right antecubital; ll1 13:59 Follow up: Response: No adverse reaction; RASS: Alert and Calm (0); IV Status: ll1 Completed infusion; IV Intake: 20ml Intake: 13:59 IV: 500ml; Total: 500ml. ll1 13:59 IV: 20ml; Total: 520ml. 1 Outcome: 13:09 Discharge ordered by . kb 14:05 Patient left the ED. ll1 14:05 Discharged to home ambulatory. ll1 14:05 Condition: stable 14:05 Discharge instructions given to patient, Instructed on discharge instructions, follow up and referral plans. medication usage, Demonstrated understanding of instructions, follow-up care, medications, Prescriptions given X 2. Addendum: 05/05/2020 07:43 Addendum: Culture Results: Positive urine culture. No further action required. Bacteria a a5 sensitive to prescribed antibiotic. Signatures: Dispatcher [employer] EDMS Meaghan Joyner, INFORMATION TECHNOLOGY AUDIT MANAGER-C INFORMATION TECHNOLOGY AUDIT MANAGER-Charley Emmanuel Audri, RN RN aa5 Faye Dozier RN RN ss Hall, Patricia, RN RN ph Thompson, Moriah mt James, Frank [facility] Sunny Durand RN RN ll1
[2020-05-02 14:18] VITALS: BP 145/79; O2SAT 98
[2020-05-02 14:19] VITALS: TEMP 97.5
== END 2020-05-02 14:05 | disposition home or self-care (01) ==
LOC: ER 10:30
DX: N39.0 Urinary tract infection, site not specified (principal); I10 Essential (primary) hypertension; I71.4 Abdominal aortic aneurysm, without rupture; I25.2 Old myocardial infarction
CPT/HCPCS: 96365; 87088; 85025; 87086; 80048; 36415; 87077; 87186; 76377; 74176; 99284; J0696; J7040; 81003; 81015

== ENCOUNTER 2021-12-03 10:03 | Inpatient (IN) | payer BC, OTHER ==
--- OUTSIDE RECORDS SUMMARY | 2021-12-03 10:06 | XMS REPORT | Continuity of Care Document ---
:1955 Author Organization [facility] t Address [address] [place] [address] Care Team Providers Name Role Phone Pcp, Does Not Have A Primary Care Physician Only, Db Test Attending Clinician Unavailable Navneet Leslie MD Attending Clinician Payers Payer Name Policy Type Policy Number Effective Date Expiration Date S ource Problems Condition Condition Condition Status Onset Resolution Last Treating Co mments Source Name Details Category Date Date Treatment Clinician Date Kidney Kidney Disease Active 2014-10 [facility] stone stone 0-09 ity of 00:00: [place] 00 [facility] Allergies, Adverse Reactions, Alerts This patient has no known allergies or adverse reactions. Social History Social Habit Start Date Stop Date Quantity Comments Source Exposure to Not sure [facility] SARS-CoV-2 (event) Medica l Branch Sex Assigned At [birth year] [facility] 00:00:00 00:00:00 Medical Branch Smoking Status Start Date Stop Date Source Former smoker [facility] Branch Medications Ordered Filled Start Stop Current Ordering Indication Dosage Frequency Signature Comments Components Source Medication Medication Date Date Medication? Clinician (SIG) Name Name tiotropium- Yes 1{puff} Inhale 1 Univers olodateroL 2-06 Puff. ity of (STIOLTO 11:48: [place] RESPIMAT) 07 Medical 2.5-2.5 Branch mcg/actuati on Mist omeprazole Yes 20mg Take 20 mg U nivers 20 mg 2-06 by mouth ity of capsule 11:48: daily. [place] [id number] Medical Branch lisinopriL Yes 2.5mg Take 2.5 Un radha 2.5 mg 2-06 mg by ity of tablet 11:48: mouth [place] 07 daily. Medical Branch triamterene Yes 1{capsu Take 1 U nivers -hydrochlor 2-06 le} capsule by it y of othiazide 11:48: mouth [place] 37.5-25 mg 07 every Medical per capsule morning. Bran ch potassium Yes 10meq Take 10 Univ ers chloride 10 2-06 mEq by ity of mEq CR 11:48: mouth 2 [place] capsule 07 (two) Medical times Branch daily. Fluticasone Yes 1{puff} Inhale 1 Univers Propionate 2-06 Puff 2 ity of (FLOVENT 11:48: (two) [place] DISKUS) 250 07 times Medical mcg/actuati daily. Branch on inhalation disk theophyllin Yes 300mg Take 300 U nivers e ER 2-06 mg by ity of (MARLENY-DUR) 11:33: mouth [place] 300 mg 12 46 every 12 Medica l hr tablet (twelve) Branch hours. BUPROPION Yes 150mg Take 150 Uni vers HCL ORAL 2-06 mg by ity of 11:33: mouth. [address] Branch zolpidem Yes 5mg Take 5 mg Univ ers (AMBIEN) 5 2-06 by mouth ity o f mg tablet 11:33: at bedtime [place] 46 as needed Medical for Branch Insomnia. SERTraline Yes 25mg Take 25 mg U nivers (ZOLOFT) 25 2-06 by mouth ity of mg tablet 11:33: daily. [address] Branch aclidinium Yes Inhale. Univ ers bromide 2-06 ity of (TUDORZA 11:33: [place] PRESSAIR) 46 Medical 400 Branch mcg/actuati on aerosol powder ALBUTEROL Yes 2{puff} Inhale 2 U nivers INHALE 2-06 Puffs. ity of 11:33: [address] Branch nitroglycer Yes .4mg Place 0.4 U nivers in 2-06 mg under ity of (NITROSTAT) 11:33: the tongue [place] 0.4 mg 46 as needed Medical sublingual for Chest Bran ch tablet pain. clopidogrel Yes 75mg Take 75 mg Univers (PLAVIX) 75 2-06 by mouth ity of mg tablet 11:33: daily. [address] Branch amLODIPine Yes 5mg Take 5 mg Un radha (NORVASC) 5 2-06 by mouth ity of mg tablet 11:33: daily. [address] Branch atorvastati Yes 20mg Take 20 mg Univers n (LIPITOR) 2-06 by mouth ity of 20 mg 11:30: at [place] tablet 24 bedtime. Medical Branch traMADOL 2014-10 Yes 50mg Take 1 Tab Uni vers (ULTRAM) 50 2-29 by mouth ity of mg tablet 00:00: every 4 [place] 00 (four) Medical hours as Branch needed for Pain (scale 1-3) or Pain (scale 7-10). tamsulosin 2014-10 Yes .4mg Take 1 Cap U nivers (FLOMAX) 2-29 by mouth ity of 0.4 mg 24 00:00: daily. [place] hr capsule 00 [facility] Branch phenazopyri 2014-10 Yes 100mg Take 1 Tab Univers dine 2-29 by mouth 3 ity of (PYRIDIUM) 00:00: (three) [place] 100 mg 00 times Medical tablet daily as Branch needed (Bladder Pain). acetaminoph 2014-10 Yes 1{tbl} Take 1 Tab Univers en-codeine 0-11 by mouth ity o f (TYLENOL 00:00: every 4 [place] #3) 300-30 00 (four) Medical mg tablet hours as Branch needed for Pain (scale 1-3) or Pain (scale 4-6). Immunizations Ordered Filled Immunization Date Status Comments [facility] e Immunization Name Name SARS-COV-2 COVID-19 2020-12-16 Completed Unive rsity of PFIZER VACCINE 00:00:00 [facility] SARS-COV-2 COVID-19 2020-11-26 Completed Unive rsity of PFIZER VACCINE 00:00:00 [facility] Procedures Procedure Date / Time Performing Clinician Source Performed COVID-19 (MOLECULAR 2021-11-24 16:17:00 Jannette Caal of [place] TESTING [facility] NUCLEIC ACID AMPLIFICATION) LAB ONLY COVID 2021-11-24 16:17:00 Jannette Caal [place] jossy connor [place] INTERPRETATION [facility] Encounters Start End Encounter Admission Attending Care Care Encounter Source Date/Time Date/Time Type Type Clinicians Facility Department ID 2021-11-24 2021-11-24 Laboratory Only, Tesfaye Db Test [facility] 1.2.8 [id number] [id number] [facility] 10:15:00 10:18:38 Only [facility] [id number] ity [facility] [id number] [place] HANDY?BLEA [id number] [address] MEDICAL OFFICE BUILDING Results This patient has no known results.
[2021-12-03 11:00] LABS: Absolute Lymphocytes (CBC) 0.9 K/uL (0.7-4.9); Hematocrit 51.2 % (36.0-45.0); Lymphocytes % 4.1 % (15.3-44.8); MPV 8.2 fL (7.6-11.3); RBC Red Blood Cell Count 5.31 M/uL (3.86-4.86)
[2021-12-03 11:06] LABS: Protime INR 0.97
[2021-12-03 11:18] LABS: Albumin 3.6 g/dL (3.4-5.0); Bilirubin Direct 0.2 mg/dL (0-0.2); Bilirubin Total 0.7 mg/dL (0.2-1.0); Magnesium 1.5 mg/dL (1.8-2.4); Potassium 4.6 mmol/L (3.5-5.1); Protein, Total 6.8 g/dL (6.4-8.2); Troponin High Sensitivity 10.7 pg/mL (<58.9)
[2021-12-03 11:23] LABS: Blood Gas Oxyhemoglobin 92.7 % (94-97); Blood O2 Saturation 94.8 % (92-98.5)
[2021-12-03 11:38] LABS: Urine Blood Trace-lysed (Negative); Urine Glucose Trace (Negative); Urine Protein 1+ (Negative); Urine Specific Gravity 1.015 (1.005-1.030)
[2021-12-03] MEDS ORDERED: NA CHLORIDE 0.9% 1,000 ML ONE ×3 (11:43→18:33)
[2021-12-03] MEDS ORDERED: CEFTRIAXONE 1000 MG/VIAL ONE (11:43)
[2021-12-03 11:50] LABS: Urine Bacteria LOADED /HPF (<20); Urine RBC NONE SEEN /HPF (NONE SEEN)
--- NOTE | 2021-12-03 11:54 | RAD REPORT ---
EXAM DESCRIPTION: CT - Head Brain Wo Cont - 12/03/2021 11:14 am CLINICAL HISTORY: MENTAL STATUS CHANGE, transient alteration of awareness COMPARISON: No comparisons TECHNIQUE: Axial 5 mm thick images of the head were obtained without IV contrast. All CT scans are performed using dose optimization technique as appropriate and may include automated exposure control or mA/KV adjustment according to patient size. FINDINGS: No intracranial hemorrhage, mass, edema or shift of mid-line structures. No acute cortical based infarction identified. No cortical edema or sulcal effacement. No abnormal extra-axial fluid c ollections. Ventricles are normal. No significant atrophy changes are identifiable. There is scattere d diminished attenuation in the cerebral white matter most notable in the deep left frontal lobe near the head of the caudate and lentiform nucleus. Mastoid air cells and visualized portions of the paranasal sinuses are clear. No acute bony findings. IMPRESSION: No hemorrhage is present. No acute infarction identifiable. Chronic ischemic changes are seen in the cerebral white matter most notable near the left head of the caudate and left lentiform nucleus. Chronic ischemic changes can mask nonhemorrhagic acute infarction. MR brain followup can be obtained if there is ongoing concern for acute ischemia.
--- NOTE | 2021-12-03 11:56 | RAD REPORT ---
EXAM DESCRIPTION: RAD - Chest Single View - 12/03/2021 11:40 am CLINICAL HISTORY: AMS COMPARISON: Two view chest July 2019 TECHNIQUE: AP portable chest image was obtained 12/03/2021 11:40 am . FINDINGS: Lungs are clear. Heart and vasculature are normal. No measurable pleural effusion and no p neumothorax. No acute bony abnormality seen. No acute aortic findings suspected. IMPRESSION: No acute cardiopulmonary process. No significant change from comparison study.
[2021-12-03] MEDS ORDERED: MAGNESIUM SULFATE 1 gm IVPB 1 GM/100 ML BAG IV ONE (12:27)
[2021-12-03 13:11] LABS: Blood Morphology Comment NOT SEEN (NOT SEEN); Platelet Estimate INCR
--- NOTE | 2021-12-03 13:29 | EDPHYS ---
Physician Documentation [facility] Name: Cornelia Fairbanks Age: 66 yrs Sex: Female : 1955 Arrival Date: 12/03/2021 Time: 10:07 Bed 17 Private MD: Mehul Tenorio R ED Physician Krish Forde HPI: 12/03 10:36 This 66 yrs old Female presents to ER via Ambulatory with complaints of pm1 Confusion. 10:36 The patient presents with confusion. Onset: The symptoms/episode began/occurred 3 pm1 day(s) ago. Possible causes: unknown. Associated signs and symptoms: Pertinent positives: Urinary frequency, Pertinent negatives: abdominal pain, chest pain, numbness, shortness of breath, tingling, vomiting. Current symptoms: In the emergency department the patient's symptoms have worsened. Patient's baseline: Neuro: alert and fully oriented, Motor: no deficits, Ambulation: walks without assistance, Speech: normal, The patient has a previous history of CVA. The patient has not experienced similar symptoms in the past. The patient has not recently seen a physician, the patient's primary care provider is Rhiannon Hinds for COPD. Historical: - Allergies: 10:21 NKDA; ab2 - PMHx: 10:21 AAA; Asthma; COPD; CVA; Depression; Diabetes - NIDDM; Hypertension; Kidney stones; ab2 Myocardial infarction; - Immunization history:: Adult Immunizations up to date, Client reports receiving the 2nd dose of the Covid vaccine. - Social history:: Smoking status: Patient/guardian denies using tobacco, the patient reports quitting approximately 3 years ago. ROS: 10:36 Cardiovascular: Negative for chest pain, palpitations, and edema, Respiratory: Negative pm1 for shortness of breath, cough, wheezing, and pleuritic chest pain. 10:36 Abdomen/GI: Negative for abdominal pain, nausea, vomiting, diarrhea, and constipation, Back: Negative for injury and pain. 10:36 MS/Extremity: Negative for injury and deformity, Skin: Negative for injury, rash, and discoloration. 10:36 Constitutional: Positive for poor PO intake, for the past 3 days due to sore throat, Negative for body aches, fever. 10:36 ENT: Positive for sore throat. 10:36 : Positive for urinary frequency, small amounts. 10:36 Neuro: Positive for altered mental status, Negative for headache, numbness, tingling. 10:36 All other systems are negative. pm1 Exam: 10:36 Constitutional: This is a well developed, well nourished patient who is awake, alert, pm1 and in no acute distress. Head/Face: Normocephalic, atraumatic. 10:36 Back: No spinal tenderness. No costovertebral tenderness. Full range of motion. Skin: Warm, dry with normal turgor. Normal color with no rashes, no lesions, and no evidence of cellulitis. MS/ Extremity: Pulses equal, no cyanosis. Neurovascular intact. Full, normal range of motion. 10:36 Eyes: Exam is negative for acute changes, Periorbital structures: appear normal, Pupils: no acute changes, Extraocular movements: no acute changes, Conjunctiva: no acute changes, no injection. 10:36 ENT: Exam is negative for acute changes, Mouth: no acute changes, Lips: normal, moist, Oral mucosa: normal, pink and intact, moist. 10:36 Cardiovascular: Exam negative for acute changes, Rate: tachycardic, Rhythm: regular, Pulses: no pulse deficits are appreciated. 10:36 Respiratory: Exam negative for acute changes, respiratory distress, shortness of breath, Breath sounds: are clear throughout. 10:36 Abdomen/GI: Inspection: abdomen appears normal, Palpation: abdomen is soft and non-tender, in all quadrants. 10:36 Neuro: Exam negative for acute changes, Orientation: is normal, Mentation: is normal, Motor: is normal, moves all fours. Vital Signs: 10:18 BP 113 / 81; Pulse 130; Resp 18; Temp 98.4; Pulse Ox 96% on R/A; Weight 68.95 kg; ab2 Height 5 ft. 2 in. (157.48 cm); Pain 0/10; 10:33 BP 94 / 56; Pulse 125; Resp 12; Pulse Ox 96% ; bp 12:12 BP 94 / 65; Pulse 120; Resp 15; Pulse Ox 95% ; jl7 13:30 BP 111 / 67; Pulse 105; Resp 15; Pulse Ox 100% ; bp 10:18 Body Mass Index 27.80 (68.95 kg, 157.48 cm) ab2 MDM: 10:32 Patient medically screened. pm1 13:27 Data reviewed: vital signs. Data interpreted: Pulse oximetry: on room air is 95 %. pm1 Interpretation: normal. 13:27 Counseling: I had a detailed discussion with the patient and/or guardian regarding: the pm1 historical points, exam findings, and any diagnostic results supporting the discharge/admit diagnosis, lab results, radiology results, the need for further work-up and treatment in the hospital. 13:40 Physician consultation: Chris Lima MD and will see patient in ED, shortly. pm12/03 10:32 Order name: Basic Metabolic Panel pm12/03 10:32 Order name: CBC with Diff pm12/03 10:32 Order name: LFT's pm12/03 10:32 Order name: Magnesium; Complete Time: 12:05 pm12/03 10:32 Order name: NT PRO-BNP; Complete Time: 12:05 pm12/03 10:32 Order name: PT-INR; Complete Time: 11:12 pm12/03 10:32 Order name: Troponin HS; Complete Time: 12:05 pm12/03 10:33 Order name: Basic Metabolic Panel; Complete Time: 12:05 EDMS 12/03 10:33 Order name: CBC with Automated Diff; Complete Time: 13:30 EDMS 12/03 10:33 Order name: Liver (Hepatic) Function; Complete Time: 12:05 EDMS 12/03 10:34 Order name: Urine Microscopic Only; Complete Time: 12:05 pm12/03 10:44 Order name: ABG; Complete Time: 12:05 pm12/03 11:12 Order name: Blood Culture Adult (2) pm12/03 11:12 Order name: Procalcitonin; Complete Time: 13:11 pm12/03 11:12 Order name: Lactate; Complete Time: 12:50 pm12/03 11:38 Order name: Urine Dipstick-Ancillary; Complete Time: 12:05 ED12/03 11:51 Order name: Urine Culture ED12/03 12:54 Order name: Manual Differential; Complete Time: 13:30 EDMS 12/03 13:25 Order name: COVID-19/FLU A+B (Document "Date of Onset" if Symptomatic) pm12/03 13:25 Order name: Strep pm1 12/03 13:26 Order name: COVID-19/FLU A+B; Complete Time: 17:49 EDMS 12/03 13:26 Order name: Group A Streptococcus Rapid Sc; Complete Time: 15:56 EDMS 12/03 15:08 Order name: Comprehensive Metabolic Panel EDMS 12/03 15:08 Order name: CBC with Automated Diff EDMS 12/03 15:08 Order name: CBC with Automated Diff EDMS 12/03 15:08 Order name: Comprehensive Metabolic Panel EDMS 12/03 15:08 Order name: Magnesium EDMS 12/03 15:08 Order name: Magnesium; Complete Time: 15:56 EDMS 12/03 15:08 Order name: Magnesium EDMS 12/03 15:08 Order name: Magnesium EDMS 12/03 10:32 Order name: XRAY Chest (1 view); Complete Time: 12:05 pm1 12/03 10:32 Order name: EKG; Complete Time: 10:33 pm12/03 10:32 Order name: Cardiac monitoring; Complete Time: 10:46 pm1 12/03 10:32 Order name: EKG - Nurse/Tech; Complete Time: 10:46 pm1 12/03 10:32 Order name: IV Saline Lock; Complete Time: 10:53 pm12/03 10:32 Order name: Labs collected and sent; Complete Time: 10:53 pm12/03 10:32 Order name: O2 Per Protocol; Complete Time: 10:35 pm1 12/03 10:32 Order name: O2 Sat Monitoring; Complete Time: 10:35 pm12/03 10:34 Order name: CT Head Brain wo Cont; Complete Time: 12:05 pm12/03 10:34 Order name: Urine Dipstick-Ancillary (obtain specimen); Complete Time: 11:43 pm12/03 15:08 Order name: 60g Consistent Carbohydrate (ADA 1800/1999) EDMS 12/03 16:18 Order name: Lactate Sepsis 2 HR Follow-up; Complete Time: 16:21 EDMS Administered Medications: 11:00 Drug: NS 0.9% 1000 ml Route: IV; Rate: 1000 ml; Site: right forearm; bp 14:23 Follow up: IV Status: Completed infusion; IV Intake: 1000ml bp 11:30 Drug: Rocephin (cefTRIAXone) 1 grams Route: IV; Rate: calculated rate; Site: right bp forearm; 14:23 Follow up: IV Status: Completed infusion; IV Intake: 50ml bp 12:30 Drug: Magnesium Sulfate 1 grams Route: IVPB; Infused Over: 1 hrs; Site: right forearm; bp 14:23 Follow up: IV Status: Completed infusion; IV Intake: 100ml bp 14:00 Drug: NS 0.9% 1000 ml Route: IV; Rate: 1000 ml; Site: right forearm; bp Disposition: 12/04 07:17 Co-signature as Attending Physician, Krish Forde MD I agree with the assessment and rn plan of care. Attestation: The patient's history, exam findings, diagnostics, and a summary of any interventions or procedures was reviewed in detail with Cristopher Chavez NP. Disposition Summary: 12/03/21 13:28 Hospitalization Ordered Hospitalization Status: Inpatient Admission pm1 Provider: Chris Lima pm1 Condition: Stable pm1 Problem: new pm1 Symptoms: have improved pm1 Bed/Room Type: Standard pm1 Location: Telemetry/MedSurg (Inpatient)(12/03/21 19:58) cg Room Assignment: [facility](12/03/21 19:58) cg Diagnosis - Altered mental status, unspecified pm1 - UTI/ Urinary tract infection, site not specified pm1 Forms: - Medication Reconciliation Form pm1 - SBAR form pm1 Signatures: Dispatcher [employer] Krish Mayer MD MD rn Garcia, Cindy, RN RN cg Marinas, Patrick, NP SOFTWARE ENGINEERING ASSOCIATE MANAGER pm1 Cecilio Haywood RN RN Yahir Wells2 Corrections: (The following items were deleted from the chart) 12/03 11:43 10:34 White ordered. pm1 bp 17:02 13:28 Telemetry/MedSurg (Inpatient) pm1 bp 17:02 13:28 pm1 bp 19:58 17:02 [facility] ER HOLD bp cg 19:58 17:02 ERHOLD- bp cg
--- NOTE | 2021-12-03 13:29 | ER ---
Nurse's Notes [facility] Name: Cornelia Fairbanks Age: 66 yrs Sex: Female : 1955 Arrival Date: 12/03/2021 Time: 10:07 Bed 17 Private MD: Meuhl Tenorio R Diagnosis: Altered mental status, unspecified;UTI/ Urinary tract infection, site not specified Presentation: 12/03 10:18 Chief complaint: Patient's son or daughter states: "She has not been herself for 3 days ab2 now, when I talk to her she acts like she doesn't process it. Her eyes seem to be dilated but the doctor told me they were okay. She isn't eating like she normally does. Her neck is usually purple from her COPD but is worse now". Coronavirus screen: Vaccine status: Patient reports receiving the 2nd dose of the covid vaccine. Client denies travel out of the [place] in the last 14 days. At this time, the client does not indicate any symptoms associated with coronavirus-19. Ebola Screen: Patient negative for fever greater than or equal to 101.5 degrees Fahrenheit, and additional compatible Ebola Virus Disease symptoms Patient denies exposure to infectious person. Patient denies travel to an Ebola-affected area in the 21 days before illness onset. No symptoms or risks identified at this time. Initial Sepsis Screen: Does the patient meet any 2 criteria? No. Patient's initial sepsis screen is negative. Does the patient have a suspected source of infection? No. Patient's initial sepsis screen is negative. Risk Assessment: Do you want to hurt yourself or someone else? Patient reports no desire to harm self or others. Onset of symptoms was November 30, 2021 at 08:00. 10:18 Method Of Arrival: Ambulatory ab2 10:18 Acuity: GALDINO 3 ab2 Triage Assessment: 10:22 General: Appears in no apparent distress. comfortable, Behavior is calm, cooperative, ab2 appropriate for age. Pain: Denies pain. Neuro: Level of Consciousness is awake, alert, obeys commands, Oriented to person, place, time, situation, Appropriate for age Gym Manager are equal bilaterally Moves all extremities. Gait is steady, Speech is normal, Facial symmetry appears normal. Historical: - Allergies: 10:21 NKDA; ab2 - PMHx: 10:21 AAA; Asthma; COPD; CVA; Depression; Diabetes - NIDDM; Hypertension; Kidney stones; ab2 Myocardial infarction; - Immunization history:: Adult Immunizations up to date, Client reports receiving the 2nd dose of the Covid vaccine. - Social history:: Smoking status: Patient/guardian denies using tobacco, the patient reports quitting approximately 3 years ago. Screenin:33 Abuse screen: Denies threats or abuse. Denies injuries from another. Nutritional bp screening: No deficits noted. Tuberculosis screening: No symptoms or risk factors identified. Fall Risk No fall in past 12 months (0 pts). Secondary diagnosis (15 points) CVA. Assessment: 10:33 General: SEE TRIAGE NOTE. bp 12:00 Reassessment: No changes from previously documented assessment. Patient and/or family bp updated on plan of care and expected duration. Pain level reassessed. Vital Signs: 10:18 BP 113 / 81; Pulse 130; Resp 18; Temp 98.4; Pulse Ox 96% on R/A; Weight 68.95 kg; ab2 Height 5 ft. 2 in. (157.48 cm); Pain 0/10; 10:33 BP 94 / 56; Pulse 125; Resp 12; Pulse Ox 96% ; bp 12:12 BP 94 / 65; Pulse 120; Resp 15; Pulse Ox 95% ; jl7 13:30 BP 111 / 67; Pulse 105; Resp 15; Pulse Ox 100% ; bp 10:18 Body Mass Index 27.80 (68.95 kg, 157.48 cm) ab2 ED Course: 10:07 Patient arrived in ED. mr 10:07 Mehul Tenorio MD is Private Physician. mr 10:21 Triage completed. ab2 10:22 Arm band placed on right wrist. ab2 10:26 Cristopher Chavez NP is PHCP. pm1 10:26 Krish Forde MD is Attending Physician. pm1 10:29 Cecilio Haywood, CHENCHO is Primary Nurse. bp 10:33 Patient has correct armband on for positive identification. Bed in low position. Call bp light in reach. Side rails up X2. Adult w/ patient. 10:45 EKG done, by ED staff, reviewed by Cristopher Chavez NP. mb7 10:53 Initial lab(s) drawn, by me, sent to lab. Inserted saline lock: 20 gauge in right em1 forearm, using aseptic technique. Blood collected. 11:10 Notified ED physician of a critical lab result(s). WBC 23.0. jl7 11:11 CT Head Brain wo Cont In Process Unspecified. EDMS 11:39 XRAY Chest (1 view) In Process Unspecified. EDMS 11:43 Basic Metabolic Panel Sent. bp 11:43 LFT's Sent. bp 11:43 CBC with Diff Sent. bp 13:28 Chris Lima MD is Hospitalizing Provider. pm1 Administered Medications: 11:00 Drug: NS 0.9% 1000 ml Route: IV; Rate: 1000 ml; Site: right forearm; bp 14:23 Follow up: IV Status: Completed infusion; IV Intake: 1000ml bp 11:30 Drug: Rocephin (cefTRIAXone) 1 grams Route: IV; Rate: calculated rate; Site: right bp forearm; 14:23 Follow up: IV Status: Completed infusion; IV Intake: 50ml bp 12:30 Drug: Magnesium Sulfate 1 grams Route: IVPB; Infused Over: 1 hrs; Site: right forearm; bp 14:23 Follow up: IV Status: Completed infusion; IV Intake: 100ml bp 14:00 Drug: NS 0.9% 1000 ml Route: IV; Rate: 1000 ml; Site: right forearm; bp Intake: 14:23 IV: 100ml; Total: 100ml. bp 14:23 IV: 50ml; Total: 150ml. bp 14:23 IV: 1000ml; Total: 1150ml. bp Outcome: 13:28 Decision to Hospitalize by Provider. pm1 21:09 Patient left the ED. 5 Signatures: Dispatcher [employer] EDNE Piper FairbanksMichael em1 Cristopher Chavez, ROAD ROLLER OPERATOR HOT MIX ROAD ROLLER OPERATOR HOT MIX pm1 Analilia Ennis RN RN [email or web address] Cecilio Haywood RN RN bp Piper Chaparro 7 Nickie Frank RN RN 5 Yahir Sprague
[2021-12-03] MEDS ORDERED: MORPHINE 2 MG/ML SYR IV PRN (15:03)
[2021-12-03] MEDS ORDERED: ONDANSETRON 4 MG/2 ML VIAL IV PRN (15:03)
--- NOTE | 2021-12-03 15:03 | P.HP ---
Certification for Inpatient Patient admitted to: Inpatient Patient will require the following post-hospital care: None Practitioner: I am a practitioner with admitting privileges, knowledge of patient current condition, hospital course, and medical plan of care. Services: Services provided to patient in accordance with Admission requirements found in Title 42 Section 412.3 of the Code of Federal Regulations Patient History Date of Service: 12/03/21 Reason for admission: Weakness History of Present Illness: 66-year-old female with hypertension, diabetes, COPD status post recent discharge from [facility] 4 days ago on increasing doses of prednisone presented to the hospital because of progressive weakness, poor p.o. intake. She denies any shortness of breath. She denies any cough, fever. She admits to urinary frequency but denies any burning. On arrival in the ED she was noted with borderline hypotension with systolic in the 90s with tachycardia with heart rate up to the 120s, no fever, white cell count of 23,000. She was given IV fluid boluses and blood pressure has improved to the 120s now. As urinalysis shows positive leukocytes. She has been admitted for presumed UTI with sepsis Allergies No Known Allergies Allergy (Verified 01/11/19 23:02) Home Medications: Atorvastatin Calcium [Lipitor*] 1 tab PO BEDTIME 01/11/19 Lisinopril [Zestril] 1 tab PO DAILY 01/11/19 Metformin HCl [Glucophage*] 1 tab PO BID 01/11/19 Tiotropium Commodore [Spiriva Respimat] 2 puff IH DAILY 01/11/19 Albuterol Sulfate [Proair Hfa] 2 puff IH TID PRN #1 hfa.aer.ad 01/15/19 Roflumilast [Daliresp*] 500 mcg PO DAILY #30 tablet 01/15/19 Tiotropium Br/Olodaterol HCl [Stiolto Respimat Inhal [place]] 2 puff IH DAILY #1 mist.inhal 01/15/19 levoFLOXacin [Levaquin*] 500 mg PO DAILY #4 tab 01/15/19 predniSONE [Prednisone*] 20 mg PO SEECOM #15 tab 01/15/19 - Past Medical/Surgical History Diabetic: Yes -: AAA -: asthma -: copd -: CVA -: diabeted niddm -: kidney stones -: AR -: depression -: hernia Repair -: Cholecystectomy -: Kidney Stone Removal - Family History Mother -: Hypertension - Social History Smoking Status: Former smoker Smoking therapy provided: No Patient receptive to therapy: No Alcohol use: No CD- Drugs: No Caffeine use: Yes Place of Residence: Home Review of Systems 10-point ROS is otherwise unremarkable Physical Examination - Physical Exam General: Alert, In no apparent distress, Oriented x3, Obese HEENT: Atraumatic, Normocephalic, PERRLA Neck: Supple, 2+ carotid pulse no bruit, JVD not distended Respiratory: Clear to auscultation bilaterally, Normal air movement, Diminished Cardiovascular: No edema, Normal pulses, Regular rate/rhythm Gastrointestinal: Normal bowel sounds, Soft and benign, Non-distended, No ascites, No tenderness Musculoskeletal: No clubbing, No swelling Neurological: Normal gait, Normal speech, Normal strength at 5/5 x4 extr - Studies Laboratory Data (last 24 hrs) 12/03/21 10:50: PT 11.2, INR 0.97 12/03/21 10:50: WBC 23.00 H*, Hgb 16.8 H, Hct 51.2 H, Plt Count 479 H 12/03/21 10:50: Sodium 133 L, Potassium 4.6, BUN 36 H, Creatinine 1.39 H, Glucose 363 H, Magnesium 1.5 L, Total Bilirubin 0.7, AST 17, ALT 49, Alkaline Phosphatase 91 Assessment and Plan - Advance Directives Does patient have a Living Will: No Does patient have a Durable POA for Healthcare: No Physician Review: Patient Assessed, Agree with Above Assessment and Plan Physician Review Additional Text: UTIwith presumed sepsis Recent COPD exacerbationcontrolled Hypomagnesemia Acute kidney injury Leukocytosis Diabetes mellitus History of CAD/COPD Plan We will admit to inpatient status Continue aggressive IV fluid hydration Start empiric antibiotics with Rocephin Continue prednisone at current 20 mg twice daily with slow tapering to previous home dose of 10 mg daily as needed Obtain blood culture and urine culture Strict glycemic control, Avoid nephrotoxin Obtain Covid screen Renally dose all meds Elevated creatinine of 1.4, follow with hydration DVT prophylaxis subcutaneous Lovenox Advance directivefull code Time Spent Managing Pts Care (In Minutes): 65
[2021-12-03] MEDS ORDERED: LORAZEPAM 0.5 MG TABLET PO PRN (15:05)
[2021-12-03] MEDS ORDERED: guaiFENesin 100 MG/5 ML UCUP PO PRN (15:05)
[2021-12-03] MEDS ORDERED: HYDRALAZINE HCL 20 MG/ML VIAL IV PRN (15:05)
[2021-12-03] MEDS ORDERED: BENZONATATE 100 MG CAP PO PRN (15:05)
[2021-12-03] MEDS: NA CHLORIDE 0.9% 1,000 ML IV SCH ×2 (16:00→22:27)
[2021-12-03 16:22] LABS: SARS-COV-2 RT PCR POSITIVE (NEGATIVE)
[2021-12-03] MEDS: INSULIN -REGULAR HUMAN 50 UNIT/0.5 ML ML SQ SCH ×3 (16:30→21:00)
[2021-12-03 18:42] VITALS: BMI 27.8
[2021-12-03] MEDS: IPRATROPIUM BROM 0.5MG/2.5ML NEB SCH (20:00)
[2021-12-03] MEDS ORDERED: IPRATROPIUM BROM 0.5MG/2.5ML ONE (20:06)
[2021-12-03] MEDS: METFORMIN HCL 500 MG TAB PO SCH (22:28)
[2021-12-03] MEDS ORDERED: D50W 25 GM/50 ML SYRINGE IV PRN (22:51)
[2021-12-03] MEDS ORDERED: GLUCAGON 1 MG/VIAL IM PRN (22:51)
[2021-12-03] MEDS ORDERED: INSULIN -REGULAR HUMAN 50 UNIT/0.5 ML ML IV ONE (22:51)
[2021-12-04] MEDS: IPRATROPIUM BROM 0.5MG/2.5ML NEB SCH ×4 (01:30→20:25)
[2021-12-04 04:21] LABS: Absolute Lymphocytes (CBC) 1.4 K/uL (0.7-4.9); Hematocrit 43.7 % (36.0-45.0); Lymphocytes % 10.5 % (15.3-44.8); MPV 7.9 fL (7.6-11.3); RBC Red Blood Cell Count 4.54 M/uL (3.86-4.86)
[2021-12-04 04:34] LABS: Albumin 2.8 g/dL (3.4-5.0); Bilirubin Total 0.3 mg/dL (0.2-1.0); Potassium 3.7 mmol/L (3.5-5.1); Protein, Total 5.7 g/dL (6.4-8.2)
[2021-12-04] MEDS: INSULIN -REGULAR HUMAN 50 UNIT/0.5 ML ML SQ SCH ×4 (07:30→21:00)
[2021-12-04] MEDS: ENOXAPARIN 40 MG/0.4 ML SQ SCH (08:34)
[2021-12-04] MEDS: METFORMIN HCL 500 MG TAB PO SCH ×2 (08:34→21:09)
[2021-12-04] MEDS: ZINC SULFATE 220 MG CAP PO SCH (08:34)
[2021-12-04] MEDS: CEFTRIAXONE 1,000 MG in NA CHLORIDE 0.9% 50 ML IVPB SCH (08:34)
[2021-12-04] MEDS: ASPIRIN EC 81 MG TAB PO SCH (08:35)
[2021-12-04] MEDS: NA CHLORIDE 0.9% 1,000 ML IV SCH ×2 (11:27→21:10)
--- NOTE | 2021-12-04 11:38 | P.DS ---
Admission Date: 12/03/21 Discharge Date: 12/04/21 Disposition: ROUTINE DISCHARGE Discharge Condition: FAIR Reason for Admission: Weakness Brief History of Present Illness: 66-year-old female with hypertension, diabetes, COPD status post recent discharge from [facility] 4 days ago on increasing doses of prednisone presented to the hospital because of progressive weakness, poor p.o. intake. She denies any shortness of breath. She denies any cough, fever. She admits to urinary frequency but denies any burning. On arrival in the ED she was noted with borderline hypotension with systolic in the 90s with tachycardia with heart rate up to the 120s, no fever, white cell count of 23,000. She was given IV fluid boluses and blood pressure has improved to the 120s now. As urinalysis shows positive leukocytes. She has been admitted for presumed UTI with sepsis Hospital Course: Hospital course Patient was admitted for UTI leukocytosis and sepsis. She has recently been on steroid for COPD exacerbation at [facility] and was discharged 3 days ago. On admission she was noted with Covid positive status. She did not have any respiratory symptoms. I urine was positive for UTI with culture growing gram- negative rods. Her leukocytosis improved significantly with Rocephin to 13 K now from 20 3K. Her urine culture and blood culture is still pending but given gram-negative rods and improvement in leukocytosis as well as clinical symptoms with absence of fever since admission patient will be discharged home today with Levaquin for the next 10 days. Hospital team will reach out to the patient if urine culture grew a Levaquin resistant organism She will continue a tapering doses of prednisone for a COPD exacerbation although stable during this hospitalization as well as for Covid diagnosis although asymptomatic Physical Exam General: Alert, In no apparent distress, Oriented x3, Obese HEENT: Atraumatic, Normocephalic, PERRLA Neck: Supple, 2+ carotid pulse no bruit, JVD not distended Respiratory: Clear to auscultation bilaterally, Normal air movement, Diminished Cardiovascular: No edema, Normal pulses, Regular rate/rhythm Gastrointestinal: Normal bowel sounds, Soft and benign, Non-distended, No ascites, No tenderness Musculoskeletal: No clubbing, No swelling Neurological: Normal gait, Normal speech, Normal strength at 5/5 x4 extr Diagnosis UTIwith presumed sepsis Recent COPD exacerbationcontrolled Hypomagnesemia Acute kidney injury Leukocytosis Diabetes mellitus History of CAD/COPD Asymptomatic Covid infection Vital Signs/Physical Exam: Temp Pulse Resp BP Pulse Ox 97.5 F 106 H 18 121/56 L 95 12/04/21 08:00 12/04/21 08:00 12/04/21 08:00 12/04/21 08:00 12/04/21 08:00 Laboratory Data at Discharge: WBC 13.00 K/uL (4.3-10.9) H D 12/04/21 04:00 Hgb 14.6 g/dL (12.0-15.0) 12/04/21 04:00 Hct 43.7 % (36.0-45.0) 12/04/21 04:00 Plt Count 398 K/uL (152-406) 12/04/21 04:00 PT 11.2 SECONDS (9.5-12.5) 12/03/21 10:50 INR 0.97 12/03/21 10:50 Sodium 140 mmol/L (136-145) 12/04/21 04:00 Potassium 3.7 mmol/L (3.5-5.1) 12/04/21 04:00 BUN 27 mg/dL (7-18) H 12/04/21 04:00 Creatinine 1.05 mg/dL (0.55-1.3) 12/04/21 04:00 Glucose 120 mg/dL (74-106) H 12/04/21 04:00 Magnesium 1.8 mg/dL (1.8-2.4) 12/03/21 15:23 Total Bilirubin 0.3 mg/dL (0.2-1.0) 12/04/21 04:00 AST 15 U/L (15-37) 12/04/21 04:00 ALT 43 U/L (12-78) 12/04/21 04:00 Alkaline Phosphatase 73 U/L (45-117) 12/04/21 04:00 Home Medications: Atorvastatin Calcium [Lipitor*] 1 tab PO BEDTIME 01/11/19 Lisinopril [Zestril] 1 tab PO DAILY 01/11/19 Metformin HCl [Glucophage*] 1 tab PO BID 01/11/19 Albuterol Sulfate [Proair Hfa] 2 puff IH TID PRN #1 hfa.aer.ad 01/15/19 Tiotropium Br/Olodaterol HCl [Stiolto Respimat Inhal [place]] 2 puff IH DAILY #1 mist.inhal 01/15/19 Fluticasone Propionate [Flovent Diskus] 100 mcg IH BID 12/03/21 Omeprazole 20 mg PO DAILY 12/03/21 Potassium Chloride 10 meq PO BID 12/03/21 Triamterene/Hydrochlorothiazid [Triamterene-Hctz 37.5-25 mg Cp] 1 each PO DAILY 12/03/21 Levofloxacin [Levaquin] 500 mg PO DAILY #10 tablet 12/04/21 Zinc Sulfate [Zinc Sulfate*] 220 mg PO DAILY #30 cap 12/04/21 predniSONE [Prednisone*] 20 mg PO SEECOM tab 12/04/21 New Medications: Levofloxacin [Levaquin] 500 mg PO DAILY #10 tablet Zinc Sulfate [Zinc Sulfate*] 220 mg PO DAILY #30 cap Diet: ADA Activity: Ad kimmy Followup: Mehul Tenorio MD [Primary Care Provider] - Time spent managing pt's care (in minutes): 35
[2021-12-04] MEDS ORDERED: Magnesium Sulfate 2gm IVPB 2 G/50 ML BAG IV ONE (15:09)
--- NOTE | 2021-12-04 17:05 | P.PN ---
Subjective Date of Service: 12/04/21 Chief Complaint: Weakness Subjective: No new changes, No C/O voiced (Feels better, still mild weakness.) Physical Examination - Vital Signs Temperature: 97.3 F Blood Pressure: 117/64 Pulse: 110 Respirations: 18 Pulse Ox (%): 95 - Physical Exam General: Alert, In no apparent distress, Oriented x3 HEENT: Atraumatic, Normocephalic, PERRLA Neck: Supple, 2+ carotid pulse no bruit, JVD not distended Respiratory: Clear to auscultation bilaterally, Normal air movement Cardiovascular: Normal pulses, Regular rate/rhythm, Normal S1 S2 Gastrointestinal: Normal bowel sounds, Soft and benign, Non-distended, No tenderness Musculoskeletal: No clubbing, No swelling Integumentary: No rashes, No breakdown Neurological: Normal speech, Normal strength at 5/5 x4 extr, Normal tone - Studies Microbiology Data (last 24 hrs): 12/03/21 13:36 Throat Group A Streptococcus Rapid Screen - Final Assessment And Plan Physician Review: Patient Assessed, Agree with Above Assessment and Plan Physician Review Additional Text: UTIwith presumed sepsis Recent COPD exacerbationcontrolled Hypomagnesemia Acute kidney injury Leukocytosis Diabetes mellitus History of CAD/COPD COVID-19 screen Plan Still having tachycardia as well as borderline low BP, continue IV fluid Continue empiric Rocephin -Follow-up pending urine culture -Continue prednisone at current 20 mg twice daily with slow tapering to previous home dose of 10 mg daily as needed Strict glycemic control, -Avoid nephrotoxin -Renally dose all meds DVT prophylaxis subcutaneous Lovenox Advance directivefull code Time Spent Managing PTS Care (In Minutes): 35
[2021-12-04] MEDS: ALBUTEROL 2.5 MG/3 ML NEB SOL NEB PRN (20:25)
[2021-12-04] MEDS: MAGNESIUM OXIDE 400 MG TAB PO SCH (21:00)
[2021-12-05] MEDS ORDERED: ACETAMINOPHEN 325 MG TABLET PO PRN (01:56)
[2021-12-05] MEDS: IPRATROPIUM BROM 0.5MG/2.5ML NEB SCH ×4 (02:00→19:06)
[2021-12-05] MEDS: NA CHLORIDE 0.9% 1,000 ML IV SCH ×2 (06:30→17:03)
[2021-12-05] MEDS: ENOXAPARIN 40 MG/0.4 ML SQ SCH (08:03)
[2021-12-05] MEDS: ASPIRIN EC 81 MG TAB PO SCH (08:03)
[2021-12-05] MEDS: CEFTRIAXONE 1,000 MG in NA CHLORIDE 0.9% 50 ML IVPB SCH (08:03)
[2021-12-05] MEDS: ZINC SULFATE 220 MG CAP PO SCH (08:03)
[2021-12-05] MEDS: MAGNESIUM OXIDE 400 MG TAB PO SCH ×2 (08:04→20:02)
[2021-12-05] MEDS: METFORMIN HCL 500 MG TAB PO SCH ×2 (08:04→20:01)
[2021-12-05] MEDS: predniSONE 20 MG TAB PO SCH ×2 (08:09→20:01)
[2021-12-05] MEDS: INSULIN -REGULAR HUMAN 50 UNIT/0.5 ML ML SQ SCH ×4 (08:09→21:00)
[2021-12-05] MEDS ORDERED: Magnesium Sulfate 2gm IVPB 2 G/50 ML BAG IV ONE (18:05)
[2021-12-05] MEDS: ALBUTEROL 2.5 MG/3 ML NEB SOL NEB PRN (19:06)
--- NOTE | 2021-12-05 22:28 | P.PN ---
Subjective Date of Service: 12/05/21 Subjective: No new changes, No C/O voiced, Improving Review of Systems 10-point ROS is otherwise unremarkable Physical Examination - Vital Signs Temperature: 97.3 F Blood Pressure: 106/63 Pulse: 101 Respirations: 18 Pulse Ox (%): 96 - Physical Exam General: Alert, In no apparent distress HEENT: Atraumatic, PERRLA, EOMI Neck: Supple, JVD not distended Respiratory: Clear to auscultation bilaterally, Normal air movement Cardiovascular: Regular rate/rhythm, Normal S1 S2 Gastrointestinal: Normal bowel sounds, No tenderness Musculoskeletal: No tenderness Integumentary: No rashes Neurological: Normal speech, Normal tone, Normal affect Lymphatics: No axilla or inguinal lymphadenopathy - Studies Microbiology Data (last 24 hrs): 12/03/21 13:36 Throat Culture & Sensitivity - Final NORMAL UPPER RESPIRATORY LORI GROWN. 12/03/21 11:35 Clean Catch Urine [place] Count - Final >100,000 CFU/ML. 12/03/21 11:35 Clean Catch Urine - Final Escherichia Coli Gram Neg Gio Medications List Reviewed: Yes Assessment & Plan - Problems (Diagnosis) (1) Acute exacerbation of chronic obstructive pulmonary disease (COPD) Current Visit: No Status: Acute (2) COVID-19 Current Visit: Yes Status: Acute (3) CVA (cerebral vascular accident) Current Visit: Yes Status: Chronic (4) DM2 (diabetes mellitus, type 2) Current Visit: Yes Status: Acute - Plan Plan: 1. Continue with albuterol and Atrovent nebs 2. Continue with IV steroids 3. Outpatient pulmonary function testing 4. Pulmonary follow-up if symptoms do not improve 5. Room air O2 sats 6. Repeat chest x-ray in the morning 7. Peak flows as needed 8. GI and DVT prophylaxis Discharge Plan: Home - Advance Directives Does patient have a Living Will: No Does patient have a Durable POA for Healthcare: No - Code Status/Comfort Care Code Status Assessed: Yes Code Status: Full Code Physician Review: Patient Assessed, Agree with Above Assessment and Plan Critical Care: No Time Spent Managing PTS Care (In Minutes): 35
[2021-12-06] MEDS: ALBUTEROL 2.5 MG/3 ML NEB SOL NEB PRN ×2 (01:00→08:35)
[2021-12-06] MEDS: IPRATROPIUM BROM 0.5MG/2.5ML NEB SCH ×2 (01:00→08:35)
[2021-12-06 06:53] LABS: Absolute Lymphocytes (CBC) 0.6 K/uL (0.7-4.9); Lymphocytes % 7.6 % (15.3-44.8); MPV 8.4 fL (7.6-11.3); RBC Red Blood Cell Count 4.07 M/uL (3.86-4.86)
[2021-12-06 07:10] LABS: Magnesium 1.9 mg/dL (1.8-2.4); Potassium 4.2 mmol/L (3.5-5.1)
[2021-12-06] MEDS: ZINC SULFATE 220 MG CAP PO SCH (08:22)
[2021-12-06] MEDS: predniSONE 20 MG TAB PO SCH (08:23)
[2021-12-06] MEDS: ASPIRIN EC 81 MG TAB PO SCH (08:23)
[2021-12-06] MEDS: MAGNESIUM OXIDE 400 MG TAB PO SCH (08:23)
[2021-12-06] MEDS: ENOXAPARIN 40 MG/0.4 ML SQ SCH (08:23)
[2021-12-06] MEDS: METFORMIN HCL 500 MG TAB PO SCH (08:23)
[2021-12-06] MEDS: CEFTRIAXONE 1,000 MG in NA CHLORIDE 0.9% 50 ML IVPB SCH (08:24)
[2021-12-06] MEDS: INSULIN -REGULAR HUMAN 50 UNIT/0.5 ML ML SQ SCH (08:24)
--- NOTE | 2021-12-06 08:32 | RAD REPORT ---
EXAM DESCRIPTION: RAD - Chest Single View - 12/06/2021 5:30 am CLINICAL HISTORY: pneumonia Chest pain. COMPARISON: Chest Single View dated 12/03/2021; Chest Pa And Lat (2 Views) dated 08/04/2019; Chest Si ngle View dated 01/12/2019; Chest Single View dated 01/11/2019 FINDINGS: Portable technique limits examination quality. Reticular opacities are present greatest in the right lung particularly in the right lung base most l ikely representing atypical infection. The heart is normal in size. No displaced fractures.
--- NOTE | 2021-12-06 08:39 | P.CNS ---
Date of Consult: 12/06/21 Reason for Consult: Coronavirus pneumonia Chief Complaint: Weakness History of Present Illness: Patient is 66 years of age metabolic syndrome history of COPD came into this hospital because of progressive weakness brain fog poor intake eyes any worsening pulmonary complaints also complaining of urinary tract symptoms currently she was hypotensive tachycardic she is doing much better Blood cultures are negative Allergies No Known Allergies Allergy (Verified 01/11/19 23:02) Home Medications: Atorvastatin Calcium [Lipitor*] 1 tab PO BEDTIME 01/11/19 Lisinopril [Zestril] 1 tab PO DAILY 01/11/19 Metformin HCl [Glucophage*] 1 tab PO BID 01/11/19 Albuterol Sulfate [Proair Hfa] 2 puff IH TID PRN #1 hfa.aer.[id number] 01/15/19 Tiotropium Br/Olodaterol HCl [Stiolto Respimat Inhal [place]] 2 puff IH DAILY #1 mist.inhal 01/15/19 Fluticasone Propionate [Flovent Diskus] 100 mcg IH BID 12/03/21 Omeprazole 20 mg PO DAILY 12/03/21 Potassium Chloride 10 meq PO BID 12/03/21 Triamterene/Hydrochlorothiazid [Triamterene-Hctz 37.5-25 mg Cp] 1 each PO DAILY 12/03/21 Levofloxacin [Levaquin] 500 mg PO DAILY #10 tablet 12/04/21 Zinc Sulfate [Zinc Sulfate*] 220 mg PO DAILY #30 cap 12/04/21 predniSONE [Prednisone*] 20 mg PO SEECOM tab 12/04/21 Acetaminophen [Tylenol*] 650 mg PO Q6H PRN #30 tab 12/06/21 Benzonatate [Tessalon [place]*] 200 mg PO TID PRN #30 cap 12/06/21 - Past Medical/Surgical History Diabetic: Yes -: AAA -: asthma -: copd -: CVA -: diabeted niddm -: kidney stones -: OR -: depression -: hernia Repair -: Cholecystectomy -: Kidney Stone Removal - Family History Mother Medical History: Hypertension - Social History Smoking Status: Former smoker, Never smoker Alcohol use: No CD- Drugs: No Caffeine use: Yes Place of Residence: Home Review of Systems 10-point ROS is otherwise unremarkable Respiratory: Cough, Shortness of Breath Physical Examination Temp Pulse Resp BP Pulse Ox 97.9 F 90 18 99/77 96 12/06/21 04:00 12/06/21 04:00 12/06/21 04:00 12/06/21 04:00 12/06/21 04:00 General: Alert, Oriented x3 Neck: Supple Respiratory: Expiratory wheezes Cardiovascular: No edema, Regular rate/rhythm - Problems (1) COVID-19 Current Visit: Yes Status: Acute Plan: Patient is 66 years of age with a history of COPD mated with a coronavirus infection she is doing much better oxygenation is satisfactory admitted here with a UTI sepsis she is now recovered cultures are negative plan for discharge today follow-up with me in 2 weeks continue with prednisone 20 twice daily for a week and then taper it down to 10 twice a day for a week antibiotics for another few days at home
[2021-12-06 09:46] VITALS: BP 124/84; TEMP 96.9; O2SAT 96
== END 2021-12-06 09:45 | disposition home or self-care (01) | DRG 871 ==
LOC: ER 10:03 → ERHOLD 15:04 → 4TH 20:43
PROVIDERS: ADMIT Internal Medicine; ATTEND Hospitalist
DX: A41.9 Sepsis, unspecified organism (principal); U07.1 COVID-19; N39.0 Urinary tract infection, site not specified; N17.9 Acute kidney failure, unspecified; J44.1 Chronic obstructive pulmonary disease with (acute) exacerbation; E11.9 Type 2 diabetes mellitus without complications; E83.42 Hypomagnesemia; I25.10 Atherosclerotic heart disease of native coronary artery without angina pectoris; I10 Essential (primary) hypertension; I25.2 Old myocardial infarction; Z87.891 Personal history of nicotine dependence; Z86.73 Personal history of transient ischemic attack (TIA), and cerebral infarction without residual deficits; Z79.84 Long term (current) use of oral hypoglycemic drugs; Z79.52 Long term (current) use of systemic steroids; Z79.899 Other long term (current) drug therapy; Z90.49 Acquired absence of other specified parts of digestive tract
CPT/HCPCS: 0240U; 36415; 70450; 71045; 80048; 80053; 80076; 81003; 81015; 82805; 82947; 83605; 83735; 83880; 84145; 84484; 85025; 85610; 87040; 87070; 87077; 87081; 87086; 87088; 87186; 93005; 96365; 96366; 99284; J0360; J1650; J3475; J7030; J7512

== ENCOUNTER 2022-10-31 16:04 | Emergency (ER) | payer BC, OTHER ==
--- OUTSIDE RECORDS SUMMARY | 2022-10-31 16:08 | XMS REPORT | Continuity of Care Document ---
:1955 Author Organization [facility] t Address [address] [place] [address] [address]. [address] [place] [address] Care Team Providers Name Role Phone PCP, PATIENT DOES NOT HAVE A Primary Care Physician Unavaila virginie Leslie III, MD, James C Attending Clinician Ebrahikeli [employer] MANAGERJannette Attending Clinician BAUTISTA LESLIE III Attending Clinician Unavailable UNKNOWN, ATTENDING Attending Clinician Unavailable Joyce Watts Attending Clinician Unknown, Attending Attending Clinician Unavailable JOYCE MOSES Attending Clinician Unavailable Tammy Roberts RN Attending Clinician Unavailable Only, Ang Db Test Attending Clinician Unavailable Doctor Unassigned, Little Browning Attending Clinician Unavailable KIANA STRINGER Attending Clinician Unavailable Payers Payer Name Policy Type Policy Number Effective Date Expiration Date S ource Problems Condition Condition Condition Status Onset Resolution Last Treating Co mments Source Name Details Category Date Date Treatment Clinician Date Kidney Kidney Disease Active 2014-10 Univers stone stone 0-09 ity of 00:00: [address] Allergies, Adverse Reactions, Alerts Allergy Allergy Status Severity Reaction(s) Onset Inactive Treating Comm ents Source Name Type Date Date Clinician NO KNOWN Drug Active Univers ALLERGIE Class ity of S [facility] Social History Social Habit Start Date Stop Date Quantity Comments Source History of Current smoker University of tobacco use [facility] Exposure to 2022-10-03 2022-10-13 Not sure [facility] SARS-CoV-2 00:00:00 10:29:00 [place] [facility] (event) Branch Sex Ass[birth year] Universit y of 00:00:00 00:00:00 [facility] Smoking Status Start Date Stop Date Source Ex-smoker [facility] [place] [facility] Medications Ordered Filled Start Stop Current Ordering Indication Dosage Frequency Signature Comments Components Source Medication Medication Date Date Medication? Clinician (SIG) Name Name benzonatate 2021-10 Yes [id number] 100mg Take 1 Univers 100 mg 2-30 capsule by ity of capsule 00:00: mouth [place] 00 every 8 Medical (eight) Branch hours as needed for Cough. Methylpredn 2021-10- Yes [id number] 4mg Take 1 Univers isolone 4 2-30 01-05 tablet by ity of mg tablet 00:00: 05:59 mouth [place] 00 :00 every 12 Medical (twelve) Branch hours for 5 days. ALBUTEROL Yes 2{puff} Inhale 2 U nivers INHALE 3-25 Puffs. ity of 09:25: [address] Branch ALBUTEROL Yes 2{puff} Inhale 2 U nivers INHALE 3-25 Puffs. ity of 09:25: [address] Branch codeine-gua 2021- No 4647 5mL Take 5 mL Univers ifenesin 3-25 -02 by mouth ity of 10-100 mg/5 00:00: 04:59 [place] 6 [place] mL oral 00 :00 (six) Medical solution hours as Branch needed for Cough for up to 7 days. Indication s: acute pain omeprazole Yes 20mg Take 20 mg U nivers 20 mg 2-06 by mouth ity of capsule 11:48: daily. [address] Branch lisinopriL Yes 2.5mg Take 2.5 Un radha 2.5 mg 2-06 mg by ity of tablet 11:48: mouth [place] 07 daily. Medical Branch triamterene Yes 1{capsu Take 1 U nivers -hydrochlor 2-06 le} capsule by it y of othiazide 11:48: mouth [place] 37.5-25 mg 07 every Medical per capsule morning. Bran ch potassium 0 Yes 10meq Take 10 Univ ers chloride 10 2-06 mEq by ity of mEq CR 11:48: mouth 2 [place] capsule 07 (two) Medical times Branch daily. Fluticasone 2021-0 Yes 1{puff} Inhale 1 Univers Propionate 2-06 Puff 2 ity of (FLOVENT 11:48: (two) [place] DISKUS) 250 07 times Medical mcg/actuati daily. Branch on inhalation disk tiotropium- 2021-0 Yes 1{puff} Inhale 1 Univers olodateroL 2-06 Puff. ity of (STIOLTO 11:48: [place] RESPIMAT) 07 Medical 2.5-2.5 Branch mcg/actuati on Mist omeprazole 2021-0 Yes 20mg Take 20 mg U nivers 20 mg 2-06 by mouth ity of capsule 11:48: daily. Medical Branch lisinopriL 0 Yes 2.5mg Take 2.5 Un radha 2.5 mg 2-06 mg by ity of tablet 11:48: mouth [place] 07 daily. Medical Branch triamterene 0 Yes 1{capsu Take 1 U nivers -hydrochlor 2-06 le} capsule by it y of othiazide 11:48: mouth [place] 37.5-25 mg 07 every Medical per capsule morning. Bran ch potassium 2021-0 Yes 10meq Take 10 Univ ers chloride 10 2-06 mEq by ity of mEq CR 11:48: mouth 2 [place] capsule 07 (two) Medical times Branch daily. Fluticasone 2021-0 Yes 1{puff} Inhale 1 Univers Propionate 2-06 Puff 2 ity of (FLOVENT 11:48: (two) [place] DISKUS) 250 07 times Medical mcg/actuati daily. Branch on inhalation disk tiotropium- 2021-0 Yes 1{puff} Inhale 1 Univers olodateroL 2-06 Puff. ity of (STIOLTO 11:48: [place] RESPIMAT) 07 Medical 2.5-2.5 Branch mcg/actuati on Mist omeprazole 2021-0 Yes 20mg Take 20 mg U nivers 20 mg 2-06 by mouth ity of capsule 11:48: daily. Medical Branch lisinopriL 2021-0 Yes 2.5mg Take 2.5 Un radha 2.5 [...] Medical mcg/actuati daily. Branch on inhalation disk tiotropium- Yes 1{puff} Inhale 1 Univers olodateroL 2-06 Puff. ity of (STIOLTO 11:48: [place] RESPIMAT) 07 Medical 2.5-2.5 Branch mcg/actuati on Mist theophyllin Yes 300mg Take 300 U nivers e ER 2-06 mg by ity of (MARLENY-DUR) 11:33: mouth [place] 300 mg 12 46 every 12 Medica l hr tablet (twelve) Branch hours. BUPROPION Yes 150mg Take 150 Uni vers HCL ORAL 2-06 mg by ity of 11:33: mouth. [address] Branch zolpidem Yes 5mg Take 5 mg Univ ers (AMBIEN) 5 2-06 by mouth ity o f mg tablet 11:33: at bedtime [place] 46 as needed Medical for Branch Insomnia. SERTraline Yes 25mg Take 25 mg U nivers (ZOLOFT) 25 2-06 by mouth ity of mg tablet 11:33: daily. [address] Branch aclidinium Yes Inhale. Univ ers bromide 2-06 ity of (TUDORZA 11:33: [place] PRESSAIR) 46 Medical 400 Branch mcg/actuati on aerosol powder ALBUTEROL Yes 2{puff} Inhale 2 U nivers INHALE 2-06 Puffs. ity of 11:33: [address] Branch nitroglycer Yes .4mg Place 0.4 U nivers in 2-06 mg under ity of (NITROSTAT) 11:33: the tongue [place] 0.4 mg 46 as needed Medical sublingual for Chest Bran ch tablet pain. clopidogrel 2021-0 Yes 75mg Take 75 mg Univers (PLAVIX) 75 2-06 by mouth ity of mg tablet 11:33: daily. [address] amLODIPine 2021-0 Yes 5mg Take 5 mg Un radha (NORVASC) 5 2-06 by mouth ity of mg tablet 11:33: daily. [address] theophyllin 2021-0 Yes 300mg Take 300 U nivers e ER 2-06 mg by ity of (MARLENY-DUR) 11:33: mouth [place] 300 mg 12 46 every 12 Medica l hr tablet (twelve) Branch hours. BUPROPION 2021-0 Yes 150mg Take 150 Uni vers HCL ORAL 2-06 mg by ity of 11:33: mouth. [address] zolpidem 2021-0 Yes 5mg Take 5 mg Univ ers (AMBIEN) 5 2-06 by mouth ity o f mg tablet 11:33: at bedtime [place] 46 as needed Medical for Branch Insomnia. SERTraline 2021-0 Yes 25mg Take 25 mg U nivers (ZOLOFT) 25 2-06 by mouth ity of mg tablet 11:33: daily. [address] aclidinium 2021-0 Yes Inhale. Univ ers bromide 2-06 ity of (TUDORZA 11:33: [place] [address] Medical 400 Branch mcg/actuati on aerosol powder nitroglycer 2021-[address] 0[address]4 U nivers in 2-06 mg under ity of (NITROSTAT) 11:33: the tongue [place] 0.4 mg 46 as needed Medical sublingual for Chest Bran ch tablet pain. clopidogrel 2021-0 Yes 75mg Take 75 mg Univers (PLAVIX) 75 2-06 by mouth ity of mg tablet 11:33: daily. [address] amLODIPine 2021-0 Yes 5mg Take 5 mg Un radha (NORVASC) 5 2-06 by mouth ity of mg tablet 11:33: daily. [address] theophyllin 2021-0 Yes 300mg Take 300 U nivers e ER 2-06 mg by ity of (MARLENY-DUR) 11:33: mouth [place] 300 mg 12 46 every 12 Medica l hr tablet (twelve) Branch hours. BUPROPION Yes 150mg Take 150 Uni vers HCL ORAL 2-06 mg by ity of 11:33: mouth. [place] [address] Medical Branch zolpidem Yes 5mg Take 5 mg Univ ers (AMBIEN) 5 2-06 by mouth ity o f mg tablet 11:33: at bedtime [place] 46 as needed Medical for Branch Insomnia. SERTraline Yes 25mg Take 25 mg U nivers (ZOLOFT) 25 2-06 by mouth ity of mg tablet 11:33: daily. [place] [address] Medical Branch aclidinium Yes Inhale. Univ ers bromide 2-06 ity of (TUDORZA 11:33: [place] PRESSAIR) 46 Medical 400 Branch mcg/actuati on aerosol powder nitroglycer Yes .4mg Place 0.4 U nivers in 2-06 mg under ity of (NITROSTAT) 11:33: the tongue [place] 0.4 mg 46 as needed Medical sublingual for Chest Bran ch tablet pain. clopidogrel Yes 75mg Take 75 mg Univers (PLAVIX) 75 2-06 by mouth ity of mg tablet 11:33: daily. [place] [address] Medical Branch amLODIPine Yes 5mg Take 5 mg Un radha (NORVASC) 5 2-06 by mouth ity of mg tablet 11:33: daily. [place] [address] Medical Branch atorvastati Yes 20mg Take 20 mg Univers n (LIPITOR) 2-06 by mouth ity of 20 mg 11:30: at [place] tablet 24 bedtime. Medical Branch atorvastati Yes 20mg Take 20 mg Univers n (LIPITOR) 2-06 by mouth ity of 20 mg 11:30: at [place] tablet 24 bedtime. Medical Branch atorvastati Yes 20mg Take 20 mg Univers n (LIPITOR) 2-06 by mouth ity of 20 mg 11:30: at [place] tablet 24 bedtime. Medical Branch metFORMIN Yes TAKE ONE Univ ers 1,000 mg 8-05 TABLET BY ity of tablet 00:00: MOUTH [place] 00 TWICE A Medical DAY *FOR Branch DIABETES* metFORMIN Yes TAKE ONE Univ ers 1,000 mg 8-05 TABLET BY ity of tablet 00:00: MOUTH [place] 00 TWICE A Medical DAY *FOR Branch DIABETES* traMADOL 2014-10 Yes 50mg Take 1 Tab Uni vers (ULTRAM) 50 2-29 by mouth ity of mg tablet 00:00: every 4 [place] (four) Medical hours as Branch needed for Pain (scale 1-3) or Pain (scale 7-10). tamsulosin 2014-10 Yes .4mg Take 1 Cap U nivers (FLOMAX) 2-29 by mouth ity of 0.4 mg 24 00:00: daily. [place] hr capsule Medical Branch phenazopyri 2014-10 Yes 100mg Take 1 Tab Univers dine 2-29 by mouth 3 ity of (PYRIDIUM) 00:00: (three) [place] 100 mg 00 times Medical tablet daily as Branch needed (Bladder Pain). traMADOL 2014-10 Yes 50mg Take 1 Tab Uni vers (ULTRAM) 50 2-29 by mouth ity of mg tablet 00:00: every 4 [place] [address] (four) Medical hours as Branch needed for Pain (scale 1-3) or Pain (scale 7-10). tamsulosin 2014-10 Yes .4mg Take 1 Cap U nivers (FLOMAX) 2-29 by mouth ity of 0.4 mg 24 00:00: daily. [place] hr capsule Medical Branch phenazopyri 2014-10 Yes 100mg Take 1 Tab Univers dine 2-29 by mouth 3 ity of (PYRIDIUM) 00:00: (three) [place] 100 mg 00 times Medical tablet daily as Branch needed (Bladder Pain). traMADOL 2014-10 Yes 50mg Take 1 Tab Uni vers (ULTRAM) 50 2-29 by mouth ity of mg tablet 00:00: every 4 [place] 00 (four) Medical hours as Branch needed for Pain (scale 1-3) or Pain (scale 7-10). tamsulosin 2014-10 Yes .4mg Take 1 Cap U nivers (FLOMAX) 2-29 by mouth ity of 0.4 mg 24 00:00: daily. [place] hr capsule Medical Branch phenazopyri 2014-10 Yes 100mg Take 1 Tab Univers dine 2-29 by mouth 3 ity of (PYRIDIUM) 00:00: (three) [place] 100 mg 00 times Medical tablet daily as Branch needed (Bladder Pain). acetaminoph 2014-10 Yes 1{tbl} Take 1 Tab Univers en-codeine 0-11 by mouth ity o f (TYLENOL 00:00: every 4 [place] #3) 300-30 00 (four) Medical mg tablet hours as Branch needed for Pain (scale 1-3) or Pain (scale 4-6). acetaminoph 2014-10 Yes 1{tbl} Take 1 Tab Univers en-codeine 0-11 by mouth ity o f (TYLENOL 00:00: every 4 [place] #3) 300-30 00 (four) Medical mg tablet hours as Branch needed for Pain (scale 1-3) or Pain (scale 4-6). acetaminoph 2014-10 Yes 1{tbl} Take 1 Tab Univers en-codeine 0-11 by mouth ity o f (TYLENOL 00:00: every 4 [place] #3) 300-30 00 (four) Medical mg tablet hours as Branch needed for Pain (scale 1-3) or Pain (scale 4-6). Immunizations Ordered Filled Immunization Date Status Comments [facility] Immunization Name Name SARS-COV-2 COVID-19 2020-12-16 Completed Unive rsity of PFIZER VACCINE 00:00:00 [facility] SARS-COV-2 COVID-19 2020-12-16 Completed Unive rsity of PFIZER VACCINE 00:00:00 [facility] SARS-COV-2 COVID-19 2020-12-16 Completed Unive rsity of PFIZER VACCINE 00:00:00 [facility] SARS-COV-2 COVID-19 2020-11-26 Completed Unive rsity of PFIZER VACCINE 00:00:00 [facility] SARS-COV-2 COVID-19 2020-11-26 Completed Unive rsity of PFIZER VACCINE 00:00:00 [facility] SARS-COV-2 COVID-19 2020-11-26 Completed Unive rsity of PFIZER VACCINE 00:00:00 [facility] Vital Signs Vital Name Observation Time Observation Value Comments Source Systolic blood 2022-10-13 16:44:00 129 mm[Hg] Univer sity of pressure [facility] Diastolic blood 2022-10-13 16:44:00 79 mm[Hg] Unive rsity of pressure [place] [facility] Heart rate 2022-10-13 16:44:00 126 /min [facility] [place] [facility] Body temperature 2022-10-13 16:44:00 36.72 [facility] Respiratory rate 2022-10-13 16:44:00 20 /min [facility] ersity [facility] Body height 2022-10-13 16:44:00 157.5 cm [facility] [place] [facility] Body weight 2022-10-13 16:44:00 72.394 kg [facility] [place] [facility] BMI 2022-10-13 16:44:00 29.19 kg/m2 Universi ty of [facility] Oxygen saturation in 2022-10-13 16:44:00 95 /min University of Arterial blood by [facility] Pulse oximetry Branch Heart rate 2022-01-06 14:26:00 124 /min Universi ty of [facility] Systolic blood 2022-01-06 14:22:00 122 mm[Hg] [facility] Diastolic blood 2022-01-06 14:22:00 81 [facility]Hg[facility] 2022-01-06 14:22:00 36.94 [facility]a [facility] Respiratory rate 2022-01-06 14:22:00 18 /min General acute hospital Body height 2022-01-06 14:22:00 157.5 cm [facility] [place] [facility] Body weight 2022-01-06 14:22:00 67.813 kg [facility] [place] [facility] BMI 2022-01-06 14:22:00 27.34 kg/m2 [facility] [place] [facility] Oxygen saturation in 2022-01-06 14:22:00 95 /min University of Arterial blood by [facility] Pulse oximetry Branch Procedures Procedure Date / Time Performing Clinician Source Performed POCT SARS-COV-2 ANTIGEN 2022-10-13 16:52:00 Jannette Caal [facility] (BINAX NOW) [facility] POCT MOLECULAR FLU 2022-01-06 14:33:00 Unknown, Attending [facility] POCT MOLECULAR STREP 2022-01-06 14:31:00 Unknown, Attending General acute hospital COVID-19 (MOLECULAR 2021-11-24 16:17[facility]00 [facility] LAB ONLY COVID 2021-11-24 16:17:00 Jannette Caal [place] [facility] Encounters Start End Encounter Admission Attending Care Care Encounter Source Date/Time Date/Time Type Type Clinicians Facility Department ID 2022-10-13 2022-10-13 Urgent [facility]aut[facility] [id number] Univers 12:20:00 12:20:00 Care Jannette Caal [facility] [id number] ity [facility] [id number] Sky as HANDY?BLEA [id number] [address] MEDICAL OFFICE BUILDING 2022-10-13 2022-10-13 Outpatient R DERRICK III, [facility] [id number] Univers 12:20:00 11:07:44 BAUTISTA [facility] 2022-10-13 2022-10-13 Outpatient R [facility] [id number] Univers 11:00:00 [facility] 2022-10-13 2022-10-13 Outpatient R ALBA, [facility] [id number] Univers 10:30:00 10:30:00 ATTENDING [facility] 2022-01-06 2022-01-06 Urgent Joyce Moses [facility] [id number] Univers 09:20:00 09:40:00 Care [id number] [id number] [place] as HANDY?BLEA [id number] [address] MEDICAL OFFICE BUILDING 2022-01-06 2022-01-06 Outpatient R AURELIA [facility] [id number] Univers 09:20:00 09:20:00 JOYCE [facility] 2021-11-25 2021-11-25 Letter BRIT Roberts [id number] Univers 00:00:00 00:00:00 (Out) Tammy HERNANDEZ [id number] [facility] [id number] Sky as [id number] [address] 2021-11-24 2021-11-24 Laboratory Only, Ang Db Test [facility] 1.2.8 40.114 [id number] Univers 10:15:00 10:18:38 Only Bautista Leslie [facility] [id number] ity of [place] 4.2.7.2.686 Sky as HANDY?BLEA [id number] Va dical ZINA [address] MEDICAL OFFICE [facility] 2021-11-24 2021-11-24 Outpatient R KING YIN [facility] [id number] Univers 10:15:00 10:15:00 BAUTISTA [facility] 2021-11-21 2021-11-21 Letter BRIT Roberts [id number] Univers 00:00:00 00:00:00 (Out) Tammy Hogue MARY [id number] it y of HOSPITAL 4.2.7.2.686 Sky as [id number] [address] 2021-11-20 2021-11-20 Outpatient R [facility] [id number] Univers 11:54:19 23:59:00 [facility] 2021-11-20 2021-11-20 Outpatient R [facility] [id number] Univers 11:54:19 23:59:00 JOYCE ity [facility] 2021-11-20 2021-11-20 [facility] [id number] Univers 11:54:19 23:59:00 Encounter Joyce HEALTH [id number] ity of [place] 4.2.7.2.686 Sky as HANDY?BLEA [id number] Va dicariel ZINA [address] [facility] OFFICE [facility] 2021-11-20 2021-11-20 [facility] [id number] Univers 11:20:00 11:59:09 Care Joyce HEALTH [id number] it y of [place] 4.2.7.2.686 Sky as HANDY?BLEA [id number] Va dical MAYKEL [address] MEDICAL OFFICE [facility] 2021-11-20 2021-11-20 Orders Doctor BRIT [id number] Univers 00:00:00 00:00:00 Only Unassigned, MARY [id number] ity of [place] [facility] 4.2.7.2.686 Sky as [id number] [address] 2020-12-16 2020-12-16 Outpatient R SIOMARA, [facility] [id number] Univers 17:30:00 17:12:32 [facility] Results Test Description Test Time Test Comments Results Result Comments Source POCT SARS-COV-2 ANTIGEN (BINAX NOW) 2022-10-13 17:07:00 Test Item Value Reference Range Interpretation Comme nts POCT SARS-COV-2 ANTIGEN (test code = 53459-3) Not Detected Not Dete cted On board controls acceptable with C Line (test code = Yes 3574) Lab Interpretation (test code = 91722-4) Normal [facility] MOLECULAR [id number] 14:44:34 Test Item Value Reference Range Interpretation Comments POCT Molecular FluA (test code = Negative Negative 77793-1) POCT Molecular FluB (test code = Negative Negative 51363-8) Lab Interpretation (test code = Normal 52823-4) [facility] MOLECULAR [id number] 14:41:08 Test Item Value Reference Range Interpretation Comments POCT Molecular Strep (test code = Negative Negative 96829-7) Lab Interpretation (test code = Normal 32576-2) [facility]
[2022-10-31 16:17] LABS: Urine Blood 3+ (Negative); Urine Glucose 3+ (Negative); Urine Protein 3+ (Negative); Urine Specific Gravity 1.025 (1.005-1.030); Urine pH 5.5 (5.0-7.0)
[2022-10-31 16:34] LABS: Absolute Lymphocytes (CBC) 1.4 K/uL (0.7-4.9); Hematocrit 46.2 % (36.0-45.0); Lymphocytes % 10.3 % (15.3-44.8); MPV 8.5 fL (7.6-11.3); RBC Red Blood Cell Count 4.86 M/uL (3.86-4.86)
[2022-10-31 16:40] LABS: Urine Bacteria <20 /HPF (<20); Urine Crystals Unidentified Few /HPF (None Seen); Urine Mucus Slight /HPF (None Seen); Urine RBC >50 /HPF (None Seen); Urine WBC Clump Many /HPF (None Seen)
[2022-10-31 16:43] LABS: Albumin 3.7 g/dL (3.4-5.0); Bilirubin Total 0.3 mg/dL (0.2-1.0); Protein, Total 7.1 g/dL (6.4-8.2)
[2022-10-31] MEDS ORDERED: MORPHINE 4 MG/ML SYR ONE ×2 (17:05→19:03)
[2022-10-31] MEDS ORDERED: NA CHLORIDE 0.9% 500 ML ONE (17:05)
[2022-10-31] MEDS ORDERED: ONDANSETRON 4 MG/2 ML VIAL ONE ×2 (17:05→18:55)
[2022-10-31] MEDS ORDERED: FAMOTIDINE 20 MG/2 ML VIAL IV ONE (17:05)
[2022-10-31] MEDS ORDERED: NA CHLORIDE 0.9% 50 ML IV ONE ×2 (17:05→18:55)
--- NOTE | 2022-10-31 18:05 | RAD REPORT ---
EXAM DESCRIPTION: RAD - Chest Single View - 10/31/2022 5:43 pm CLINICAL HISTORY: upper abdominal pain COMPARISON: Chest Single View dated 12/06/2021; Chest Single View dated 12/03/2021; Chest Pa And Lat ( 2 Views) dated 08/04/2019; Chest Single View dated 01/12/2019 FINDINGS: Lines: None. Lungs: No evidence of edema or pneumonia. Pleural: No significant pleural effusions or pneumothorax. Cardiac: The heart size is within normal limits. Mediastinum: Within normal limits. Bones: No acute fractures. Other: None IMPRESSION: No acute cardiopulmonary disease.
--- NOTE | 2022-10-31 18:33 | RAD REPORT ---
EXAM DESCRIPTION: CTAngio Aorta For Dissection - 10/31/2022 6:08 pm CLINICAL HISTORY: abdominal pain COMPARISON: No comparisons TECHNIQUE: CTA of the chest, abdomen, and pelvis was performed with IV contrast. MIPs were created t o evaluate the abdominal aorta. All CT scans are performed using dose optimization technique as appropriate and may include automated exposure control or mA/KV adjustment according to patient size. CTA of the abdomen and pelvis was performed. FINDINGS: Thorax: Chest Wall: No abnormal mass Lungs: No acute abnormality. Edema. Pleura: No effusions or pneumothorax. [place]/Mediastinum: No lymphadenopathy. Small hiatal hernia . Aorta/Pulmonary Arteries: Unremarkable Heart: Normal size. Abdomen/Pelvis: Liver: Low-density liver lesions noted which are indeterminate but favored benign. Biliary: Cholecystectomy Stomach: No significant focal abnormality. Duodenum: No significant focal abnormality. Pancreas: No significant abnormality. Spleen: No significant abnormality. Adrenal: No suspicious lesions. Kidney/ureter: Moderate right-sided hydroureteronephrosis secondary to a 6 mm stone in the right dist al ureter, proximal to the UVJ. Urothelial thickening is noted. This is presumably related to infecti on or inflammation. Right renal calculus noted measuring 4 millimeters. Retroperitoneum: No retroperitoneal adenopathy. Vascular: Infrarenal abdominal aortic aneurysm measuring 4.8 cm. This is not extend into the iliac ar teries. No perianeurysmal stranding is noted. Bowel: Diverticulosis. No evidence of acute diverticulitis.. Peritoneum: No ascites or free air. Bladder: Grossly unremarkable. Reproductive: No adnexal masses. Bones: No acute fracture. Other: n/a IMPRESSION: 1. 4.8 cm infrarenal abdominal aortic aneurysm without specific imaging features to sugg est impending rupture. This is favored chronic. Vascular surgery referral is recommended. 2. Moderate right-sided hydroureteronephrosis secondary to a 6 mm stone in the right distal ureter. U rothelial thickening noted which may indicate superimposed infection or inflammation. Recommend urolo gic consultation.
[2022-10-31] MEDS ORDERED: CEFTRIAXONE 1000 MG/VIAL ONE (18:55)
[2022-10-31] MEDS ORDERED: KETOROLAC 30 MG/ML INJ ONE (18:55)
[2022-10-31] MEDS ORDERED: HYDRALAZINE HCL 20 MG/ML VIAL ONE (18:55)
[2022-10-31] MEDS ORDERED: IPRATROPIUM BROM 0.5MG/2.5ML ONE ×2 (19:13→19:15)
[2022-10-31] MEDS ORDERED: ALBUTEROL 2.5 MG/3 ML NEB SOL ONE ×2 (19:13→19:15)
[2022-10-31] MEDS ORDERED: NA CHLORIDE 0.9% 1,000 ML ONE ×2 (19:57→23:38)
[2022-10-31] MEDS ORDERED: LABETALOL 20 MG/4ML SYRINGE IV ONE (20:04)
[2022-10-31] MEDS ORDERED: LORazepam 2 MG/ML VIAL ONE (20:09)
--- NOTE | 2022-10-31 20:12 | RAD REPORT ---
EXAM DESCRIPTION: CT - Ct Stroke Brain Wo Cont - 10/31/2022 8:06 pm CLINICAL HISTORY: ams COMPARISON: Head Brain Wo Cont dated 12/03/2021; Chest Single View dated 10/31/2022; Angio Aorta For Dissection dated 10/31/[address]: All [address] scans are performed using dose optimization technique as appropriate and may inclu de automated exposure control or mA/KV adjustment according to patient size. FINDINGS: IV contrast from the CT scan earlier in the day is present within the venous system. No intracranial hemorrhage, hydrocephalus or extra-axial fluid collection.No areas of brain edema or evidence of midline shift. The paranasal sinuses and mastoids are clear. The calvarium is intact. IMPRESSION: No acute intracranial abnormality. Discussed with Dr. Forde in the ED by Dr. Mcwilliams at 1958 on 10/31/22
--- NOTE | 2022-10-31 20:48 | EDPHYS ---
Physician Documentation [facility] Name: Cornelia Fairbanks Age: 67 yrs Sex: Female : 1955 Arrival Date: 10/31/2022 Time: 16:06 Bed 7 Private MD: ED Physician Krish Forde HPI: 10/31 16:20 This 67 yrs old Female presents to ER via Ambulatory with complaints of cp Abdominal Pain. 16:20 The patient presents with abdominal pain mid and lower abdomen. Onset: The cp symptoms/episode began/occurred 1.5 hour(s) ago. Historical: - Allergies: 16:12 NKDA; aa5 - Home Meds: 16:15 metformin 1000mg BID [Active]; potassium chloride 10 mEq Oral TbER once daily [Active]; aa5 omeprazole 20 mg Oral cpDR 1 cap once daily [Active]; triamterene-hydrochlorothiazid 37.5-25 mg Oral cap once daily [Active]; atorvastatin 20 mg oral tab 1 tab once daily [Active]; lisinopril 2.5 mg Oral tab once daily [Active]; prednisone 10 mg oral tab PRN [Active]; Stiolto Respimat 2.5-2.5 mcg/actuation inhalation mist 2 puffs [Active]; Albuterol Inhl every 6 hours [Active]; - PMHx: 16:12 AAA; Asthma; COPD; CVA; Depression; Diabetes - NIDDM; Hypertension; Kidney stones; aa5 Myocardial infarction; - Immunization history:: Adult Immunizations unknown. - Social history:: Smoking status: Patient denies any tobacco usage or history of. ROS: 16:25 Constitutional: Negative for fever, poor PO intake. cp 16:25 Eyes: Negative for injury, pain, redness, and discharge. cp 16:25 ENT: Negative for drainage from ear(s), ear pain, sore throat, difficulty swallowing, difficulty handling secretions. 16:25 Cardiovascular: Negative for chest pain, edema, palpitations. 16:25 Respiratory: Negative for cough, shortness of breath, wheezing. 16:25 Abdomen/GI: Positive for abdominal pain, nausea, vomiting, of the suprapubic area and left lower quadrant, Negative for diarrhea, constipation, black/tarry stool, rectal bleeding. 16:25 Back: Positive for pain at rest. 16:25 : Negative for urinary symptoms, vaginal bleeding. 16:25 Neuro: Negative for altered mental status, headache, numbness, syncope, weakness. 16:25 All other systems are negative. Exam: 16:30 Head/Face: Normocephalic, atraumatic. cp 16:30 Constitutional: The patient appears in no acute distress, alert, awake, non-toxic, well developed, well nourished, uncomfortable. 16:30 Eyes: Periorbital structures: appear normal, Conjunctiva: normal, no exudate, no injection, Sclera: no appreciated abnormality, Lids and lashes: appear normal, bilaterally. 16:30 ENT: External ear(s): are unremarkable, Nose: is normal, Mouth: Lips: moist, Oral mucosa: moist, Posterior pharynx: Airway: no evidence of obstruction, patent. 16:30 Chest/axilla: Inspection: normal, Palpation: is normal, no crepitus, no tenderness. 16:30 Cardiovascular: Rate: tachycardic, Rhythm: regular, Edema: is not appreciated, JVD: is not appreciated. 16:30 Respiratory: the patient does not display signs of respiratory distress, Respirations: normal, no use of accessory muscles, no retractions, labored breathing, is not present, Breath sounds: decreased breath sounds, are not appreciated, stridor, is not appreciated, wheezing: is not appreciated. 16:30 Abdomen/GI: Inspection: obese Bowel sounds: active, all quadrants, Palpation: soft, in all quadrants, moderate abdominal tenderness, in the left lower quadrant, voluntary guarding, is elicited in the left lower quadrant. 16:30 Back: CVA tenderness, is absent. 16:30 Skin: cellulitis, is not appreciated, no rash present. 16:30 Neuro: Orientation: to person, place \T\ time. Mentation: is normal, Motor: moves all fours, strength is normal, Sensation: is normal. 17:23 ECG was reviewed by the Attending Physician. cp Vital Signs: 16:13 BP 187 / 112; Pulse 113; Resp 20 S; Temp 97.7(TE); Pulse Ox 95% on R/A; Weight 72.57 kg aa5 (R); Height 5 ft. 2 in. (157.48 cm); 17:00 BP 166 / 90; Pulse 107; Resp 15; Pulse Ox 98% ; Pain 9/10; jl7 18:35 BP 188 / 92; Pulse 111; Resp 19; Pulse Ox 98% on R/A; jl7 19:15 BP 175 / 126; Pulse 154; Resp 35; Pulse Ox 83% ; jl7 19:17 Pulse Ox 100% on Non-rebreather mask; jl7 20:32 BP 113 / 83; Pulse 136; Resp 20; Pulse Ox 100% on BiPAP; kd3 21:02 BP 115 / 91; Pulse 132; Resp 19; Pulse Ox 100% on BiPAP; kd3 11/01 02:21 BP 126 / 87; Pulse 111; Resp 18; Pulse Ox 100% ; kd3 10/31 16:13 Body Mass Index 29.26 (72.57 kg, 157.48 cm) aa5 MDM: 10/31 16:38 Patient medically screened. cp 20:12 Care significantly affected by the following chronic conditions: Diabetes, cp Hypertension, Chronic Obstructive Pulmonary Disease, Asthma. ED course: consult with DR Ramos \T\2004 to discuss patient with acute mental status change, no focal deficits on exam, concern for infected ureteral stone. Dr Ramos recommends TNK. 20:46 ED course: Pt left over from day shift, became confused, code stroke called, ct head rn neg. Spoke at length with patient's family, now back to baseline, talking, no lateralizing signs or symptoms, BP improved. Daughter in room and states patient back to baseline, after prolonged discussion with daughter, joint decision made not to administer TNKase given etiology much more likely AMS 2/2 sepsis and infected kidney stone. Daughter and other family member agree with plan of care and are thankful that patient is back to baseline.. 22:50 ED course: consult with vascular \[id number] to discuss infrarenal aortic aneurysm. Will cp consult and would like transfer to hospitalist services. 23:30 ED course: Consult performed. Discussed care with DR Vaughan, hospitalist, denies transfer cp until consult with urology due to concern for obstructing ureteral stone. 11/01 01:07 ED course: received notification from clinical program coordinator that transfer denied to [facility] due to capacity. 01:26 ED course: consult with DR Gaitan, urologist, after discussion will consult and cp requests transfer to services of hospitalist. 01:49 ED course: consult with DR Walden, mission worker at [facility], will accept patient after cp discussion. 10/31 16:14 Order name: CBC with Diff; Complete Time: 16:49 aa5 10/31 17:54 Interpretation: Normal except: WBC 13.30; HGB 15.5; HCT 46.2; CHANA% 78.6; LYM% 10.3; cp NEUT A 10.5. 10/31 16:14 Order name: CMP; Complete Time: 16:49 aa5 10/31 17:46 Interpretation: Normal except: GLUC 300; BUN 21; CRE 1.23; GFR 49; AST 14. cp 10/31 16:14 Order name: Lipase; Complete Time: 16:49 aa5 10/31 16:17 Order name: Urine Microscopic Only; Complete Time: 16:49 ap3 10/31 17:55 Interpretation: Normal except: UWBC >50; URBC >50; UWBC Clump Many; BYST Few. 10/31 16:17 Order name: Urine Dipstick-Ancillary; Complete Time: 16:49 EDMS 10/31 17:54 Interpretation: Normal except: UGLUC 3+; UKET Trace; UBLD 3+; UPROT 3+; UNIT Positive; cp UESTR 1+. 10/31 16:43 Order name: Urine Culture EDOK 10/31 16:54 Order name: Lactate w/ 2H reflex if indic.; Complete Time: 17:45 11/01 01:19 Interpretation: Reviewed. 10/31 16:54 Order name: CT Aorta for Dissection; Complete Time: 18:38 10/31 23:21 Interpretation: Report reviewed. 10/31 16:54 Order name: XRAY Chest (1 view); Complete Time: 18:38 10/31 18:39 Interpretation: Report review. 10/31 16:54 Order name: Troponin High Sensitivity; Complete Time: 17:45 cp 10/31 19:42 Order name: SARS RAPID; Complete Time: 22:48 cp 10/31 19:54 Order name: CT Stroke Brain w/o Contrast; Complete Time: 20:14 bb 10/31 20:14 Interpretation: Report reviewed. 10/31 21:04 Order name: ABG Arterial Blood Gas; Complete Time: 21:40 EDOK 10/31 23:21 Interpretation: Normal except: ABGPH 7.28; ABGPO2 254.0; ABGHCO3 19.3; ABGSO2 99.1. cp 10/31 16:14 Order name: IV Saline Lock; Complete Time: 17:00 aa 10/31 16:14 Order name: Labs collected and sent; Complete Time: 17:00 aa5 10/31 16:54 Order name: EKG; Complete Time: 16:55 cp 10/31 16:54 Order name: EKG - Nurse/Tech; Complete Time: 17:19 cp EC/17 17:23 Rate is 109 beats/min. Rhythm is regular. [place] interval is normal. QRS interval is cp normal. QT interval is normal. T waves are Inverted in lead aVR. Interpreted by me. Reviewed by me. Administered Medications: 08:16 Drug: Ativan (LORazepam) 0.5 mg Route: IVP; Site: left antecubital; [facility] 21:02 Follow up: Response: No adverse reaction; Anxiety decreased [facility] 17:10 Drug: NS 0.9% 500 ml Route: IV; Rate: bolus; Site: left antecubital; [facility] 11/01 02:43 Follow up: IV Status: Completed infusion; IV Intake: 1000ml [facility] 10/31 17:10 Drug: Zofran (Ondansetron) 4 mg Route: IVP; Site: left antecubital; 7 17:12 Drug: morphine 4 mg Route: IVP; Infused Over: 4 mins; Site: left antecubital; 7 17:16 Drug: Pepcid (famotidine) 20 mg Route: IVP; Site: left antecubital; jl7 19:22 Not Given (Physician Discretion): morphine 4 mg IVP once over 4 mins 19:30 Drug: Rocephin - (cefTRIAXone) 1 grams Route: IVPB; Infused Over: 30 mins; Site: left [facility] antecubital; 11/01 02:43 Follow up: IV Status: Completed infusion [facility] 10/31 19:31 Drug: Zofran (Ondansetron) 4 mg Route: IVP; Site: left antecubital; 3 11/01 02:42 Follow up: Response: No adverse reaction; Nausea is decreased [facility] 10/31 20:00 Drug: hydrALAZINE 10 mg Route: IVP; Site: left antecubital; tw5 01/18 02:43 Follow up: Response: No adverse reaction; Blood pressure is lowered [facility] 10/31 20:19 Drug: Labetalol 10 mg Route: IV; Rate: calculated rate; Site: left antecubital; 3 11/01 02:42 Follow up: IV Status: Completed infusion 3 10/31 20:32 CANCELLED (Physician Discretion): NS 0.9% 1000 ml IV at 100 ml/hr continuous; give cp another 500 cc bolus 20:35 Drug: NS 0.9% 1000 ml Route: IV; Rate: 1 bolus; Site: left antecubital; 3 11/01 02:42 Follow up: IV Status: Completed infusion 3 10/31 23:40 Drug: NS 0.9% 1000 ml Route: IV; Rate: 1 bolus; Site: left antecubital; 3 11/01 02:42 Follow up: IV Status: Completed infusion; IV Intake: 1000ml kd3 Disposition Summary: 10/31/22 20:47 Transfer Ordered Reason: Higher level of care cp Condition: Stable cp Problem: new cp Symptoms: have improved cp [facility] cp Accepting Physician: DR Walden(11/01/22 02:43) kd3 Diagnosis - Altered mental status, unspecified cp - Calculus of ureter - right cp - Unspecified hydronephrosis - right cp - Dyspnea cp Forms: - Medication Reconciliation Form cp - SBAR form cp Signatures: Dispatcher [employer] EDKrish Gilman MD MD rn Calderon, Audri, RN RN aa5 Kaushik Malin PA PA cp Analilia Ennis RN RN [id number] Princess Lin tw5 Amy Nava RN RN kd3 Corrections: (The following items were deleted from the chart) 10/31 17:48 17:46 Normal except: GLUC 300; BUN 21; CRE 1.23; GFR 49. cp cp 20:32 18:57 NS 0.9% 1000 ml IV at 100 ml/hr continuous; give another 500 cc bolus ordered. cp cp 22:07 10/30 16:30 Constitutional: The patient appears in no acute distress, alert, awake, cp non-toxic, well developed, well nourished, uncomfortable, cp 10/31 22:10/30 16:30 Head/Face: Normocephalic, atraumatic. cp cp 10/31 22:10/30 16:30 Eyes: Periorbital structures: appear normal, Conjunctiva: normal, no cp exudate, no injection, Sclera: no appreciated abnormality, Lids and lashes: appear normal, bilaterally, cp 10/31 22:10/30 16:30 ENT: External ear(s): are unremarkable, Nose: is normal, Mouth: Lips: cp moist, Oral mucosa: moist, Posterior pharynx: Airway: no evidence of obstruction, patent, cp 10/31 22:10/30 16:30 Chest/axilla: Inspection: normal, Palpation: is normal, no crepitus, no cp tenderness, cp 10/31 21:10/30 16:30 Cardiovascular: Rate: tachycardic, Rhythm: regular, Edema: is not cp appreciated, JVD: is not appreciated, cp 10/31 21:10/30 16:30 Respiratory: the patient does not display signs of respiratory distress, cp Respirations: normal, no use of accessory muscles, no retractions, labored breathing, is not present, Breath sounds: decreased breath sounds, are not appreciated, stridor, is not appreciated, wheezing: is not appreciated, cp 10/31 21:10/30 16:30 Abdomen/GI: Inspection: obese Bowel sounds: active, all quadrants, cp Palpation: soft, in all quadrants, moderate abdominal tenderness, in the left lower quadrant, voluntary guarding, is elicited in the left lower quadrant, cp 10/31 22:10/30 16:30 Back: CVA tenderness, is absent, cp cp 10/31 21:10/30 16:30 Skin: cellulitis, is not appreciated, no rash present. cp cp 10/31 22:10/30 16:30 Neuro: Orientation: to person, place \T\ time. Mentation: is normal, Motor: cp moves all fours, strength is normal, Sensation: is normal, cp 11/01 00:57 10/31 20:47 Doctor cp cp 11/01 01:57 10/31 20:47 [facility] cp cp 11/01 01:57 01:57 DR Walden cp cp 01:58 01:57 DR Walden cp cp 02:43 01:58 DR Walden cp kd3
--- NOTE | 2022-10-31 20:48 | ER ---
Nurse's Notes [facility] Name: Cornelia Fairbanks Age: 67 yrs Sex: Female : 1955 Arrival Date: 10/31/2022 Time: 16:06 Bed 7 Private MD: Diagnosis: Altered mental status, unspecified;Calculus of ureter-right;Unspecified hydronephrosis-right;Dyspnea Presentation: 10/31 16:13 Chief complaint: Patient states: lower abd pain that began today at 1430. Pt reports aa5 nausea. Coronavirus screen: nausea. Ebola Screen: Patient denies travel to an Ebola-affected area in the 21 days before illness onset. Initial Sepsis Screen: Does the patient meet any 2 criteria? No. Patient's initial sepsis screen is negative. Does the patient have a suspected source of infection? No. Patient's initial sepsis screen is negative. Risk Assessment: Do you want to hurt yourself or someone else? Patient reports no desire to harm self or others. Onset of symptoms was October 2022. 16:13 Acuity: GALDINO 3 aa5 16:13 Method Of Arrival: Ambulatory aa5 19:00 Acuity: GALDINO 2 jl7 Historical: - Allergies: 16:12 NKDA; aa5 - Home Meds: 16:15 metformin 1000mg BID [Active]; potassium chloride 10 mEq Oral TbER once daily [Active]; aa5 omeprazole 20 mg Oral cpDR 1 cap once daily [Active]; triamterene-hydrochlorothiazid 37.5-25 mg Oral cap once daily [Active]; atorvastatin 20 mg oral tab 1 tab once daily [Active]; lisinopril 2.5 mg Oral tab once daily [Active]; prednisone 10 mg oral tab PRN [Active]; Stiolto Respimat 2.5-2.5 mcg/actuation inhalation mist 2 puffs [Active]; Albuterol Inhl every 6 hours [Active]; - PMHx: 16:12 AAA; Asthma; COPD; CVA; Depression; Diabetes - NIDDM; Hypertension; Kidney stones; aa5 Myocardial infarction; - Immunization history:: Adult Immunizations unknown. - Social history:: Smoking status: Patient denies any tobacco usage or history of. Screenin:[facility] ED Fall Risk Assessment (Adult) History of falling in the last 3 months, jl7 including since admission No falls in past 3 months (0 pts) Confusion or Disorientation No (0 pts) Intoxicated or Sedated No (0 pts) Impaired Gait No (0 pts) Mobility Assist Device Used No (0 pt) Altered Elimination No (0 pt) Score/Fall Risk Level 0 - 2 = Low Risk Oriented to surroundings. Abuse screen: Denies threats or abuse. Denies injuries from another. Nutritional screening: No deficits noted. Tuberculosis screening: No symptoms or risk factors identified. Assessment: 17:14 General: Appears in no apparent distress. uncomfortable, Behavior is cooperative, jl7 appropriate for age, anxious. Pain: Complains of pain in right upper quadrant and left upper quadrant Pain currently is 9 out of 10 on a pain scale. Quality of pain is described as unable to describe Pain began 1 hour ago. Is continuous. Neuro: Level of Consciousness is awake, alert, obeys commands, Oriented to person, place, time, situation. Cardiovascular: Patient's skin is warm and dry. Respiratory: Airway is patent Respiratory effort is even, unlabored, Respiratory pattern is regular, symmetrical. GI: Abdomen is round Bowel sounds present X 4 quads. Abdomen is tender to palpation in right upper quadrant Reports nausea, vomiting, Patient currently denies constipation, diarrhea. Derm: Skin is pink, warm \T\ dry. 19:27 Reassessment: Assisted pt to bathroom via wheelchair, pt reported nausea and increasing jl7 abdominal pain. Assisted pt back to ER room 12 and informed ERP of nausea and pain, see MAR for orders. Once this nurse returned to room to medicate pt pt was tachypneic with audible wheezing, tachycardic and severely restless. Informed ERP and moved pt to ER room 7. Report given to CHENCHO Reyes; pt medicated with Solu-Medrol and NEB treatment; ERP gave VO order to hold morphine and hydralazine until after BiPap to assess if BiPap will decrease BP. Vital Signs: 16:13 BP 187 / 112; Pulse 113; Resp 20 S; Temp 97.7(TE); Pulse Ox 95% on R/A; Weight 72.57 kg aa5 (R); Height 5 ft. 2 in. (157.48 cm); 17:00 BP 166 / 90; Pulse 107; Resp 15; Pulse Ox 98% ; Pain 9/10; jl7 18:35 BP 188 / 92; Pulse 111; Resp 19; Pulse Ox 98% on R/A; jl7 19:15 BP 175 / 126; Pulse 154; Resp 35; Pulse Ox 83% ; jl7 19:17 Pulse Ox 100% on Non-rebreather mask; jl7 20:32 BP 113 / 83; Pulse 136; Resp 20; Pulse Ox 100% on BiPAP; kd3 21:02 BP 115 / 91; Pulse 132; Resp 19; Pulse Ox 100% on BiPAP; kd3 11/01 02:21 BP 126 / 87; Pulse 111; Resp 18; Pulse Ox 100% ; kd3 10/31 16:13 Body Mass Index 29.26 (72.57 kg, 157.48 cm) aa5 ED Course: 10/31 16:06 Patient arrived in ED. rg4 16:10 Kaushik Malin PA is PHCP. cp 16:10 Celso Gabriel MD is Attending Physician. cp 16:12 Arm band placed on. aa5 16:14 Triage completed. aa5 16:20 Urine Microscopic Only Sent. ap3 16:20 Urine collected: clean catch specimen, cloudy. jl7 17:07 Troponin High Sensitivity Sent. bc6 17:07 Lactate w/ 2H reflex if indic. Sent. bc6 17:10 Initial lab(s) drawn, by ED staff, sent to lab. Inserted saline lock: 20 gauge in left jl7 antecubital area, using aseptic technique. Blood collected. 17:14 Analilia Ennis, RN is Primary Nurse. jl7 17:14 Patient has correct armband on for positive identification. Placed in gown. Bed in low jl7 position. Call light in reach. Side rails up X 1. Client placed on continuous cardiac and pulse oximetry monitoring. NIBP monitoring applied. 17:20 EKG done, by ED staff, reviewed by Kaushik ENCISO. jl7 17:45 XRAY Chest (1 view) In Process Unspecified. EDMS 18:09 CT Aorta for Dissection In Process Unspecified. EDMS 20:07 CT Stroke Brain w/o Contrast In Process Unspecified. EDMS 21:44 initiated a transfer with Vinh from [facility]. mw2 22:50 Connected Kaushik Enciso with the Vascular doctor from [facility]. mw2 23:30 Connected Kaushik ENCISO with the Urologist from [facility]. mw2 11/01 00:07 Attending Physician role handed off by Celso Gabriel MD cp 00:07 Krish Forde MD is Attending Physician. cp 00:46 [facility] declined due to capacity. mw2 00:52 initiated a transfer with Amanda from [facility]. mw2 01:16 connected Kaushik ENCISO with the Doctor from [facility]. mw2 01:34 Connected Kaushik ENCISO with the Doctor from [facility]. mw2 01:55 administrative approval given by Amanda Knox/ patient has been accepted to [address] to [phone] [id number]/ Dr. Walden accepted the patient in transfer/report to be called to [phone]. 02:41 No provider procedures requiring assistance completed. Patient transferred, IV remains kd3 in place. Administered Medications: 10/31 08:16 Drug: Ativan (LORazepam) 0.5 mg Route: IVP; Site: left antecubital; [facility] 21:02 Follow up: Response: No adverse reaction; Anxiety decreased [facility] 17:10 Drug: NS 0.9% 500 ml Route: IV; Rate: bolus; Site: left antecubital; 7 11/01 02:43 Follow up: IV Status: Completed infusion; IV Intake: 1000ml [facility] 10/31 17:10 Drug: Zofran (Ondansetron) 4 mg Route: IVP; Site: left antecubital; jl7 17:12 Drug: morphine 4 mg Route: IVP; Infused Over: 4 mins; Site: left antecubital; 7 17:16 Drug: Pepcid (famotidine) 20 mg Route: IVP; Site: left antecubital; jl7 19:22 Not Given (Physician Discretion): morphine 4 mg IVP once over 4 mins cp 19:30 Drug: Rocephin - (cefTRIAXone) 1 grams Route: IVPB; Infused Over: 30 mins; Site: left [facility] antecubital; 11/01 02:43 Follow up: IV Status: Completed infusion [facility] 10/31 19:31 Drug: Zofran (Ondansetron) 4 mg Route: IVP; Site: left antecubital; [facility] 11/01 02:42 Follow up: Response: No adverse reaction; Nausea is decreased [facility] 10/31 20:00 Drug: hydrALAZINE 10 mg Route: IVP; Site: left antecubital; tw5 11/01 02:43 Follow up: Response: No adverse reaction; Blood pressure is lowered 3 10/31 20:19 Drug: Labetalol 10 mg Route: IV; Rate: calculated rate; Site: left antecubital; kd3 11/01 02:42 Follow up: IV Status: Completed infusion kd3 10/31 20:32 CANCELLED (Physician Discretion): NS 0.9% 1000 ml IV at 100 ml/hr continuous; give cp another 500 cc bolus 20:35 Drug: NS 0.9% 1000 ml Route: IV; Rate: 1 bolus; Site: left antecubital; kd3 11/01 02:42 Follow up: IV Status: Completed infusion 3 10/31 23:40 Drug: NS 0.9% 1000 ml Route: IV; Rate: 1 bolus; Site: left antecubital; kd3 11/01 02:42 Follow up: IV Status: Completed infusion; IV Intake: 1000ml kd3 Medication: 10/31 17:14 VIS not applicable for this client. jl7 Intake: 11/01 02:42 IV: 1000ml; Total: 1000ml. kd3 02:43 IV: 1000ml; Total: 2000ml. kd3 Outcome: 10/31 20:47 ER care complete, transfer ordered by . cp 11/01 02:42 Transferred kd3 Condition: stable Discharge instructions given to patient, family, Instructed on discharge instructions, Demonstrated understanding of instructions, follow-up care. 02:43 Patient left the ED. kd3 Signatures: Dispatcher [employer] EDMS Mar Tejeda, RN RN aa5 Kaushik Malin PA PA Opal [place] rg4 Analilia Ennis RN RN jl7 Ernestina Rodriguez RN RN anatoly3 Renata Silverman2 Princess Lin tw5 Amy Nava RN RN kd3 Ayala Gallegos bc6
[2022-10-31 21:03] LABS: Arterial Blood Carboxyhemoglob 0.8 % (0-1.5); Blood O2 Saturation 99.1 % (92-98.5)
[2022-10-31 22:04] LABS: SARS-CoV-2 Antigen Rapid Res Negative (Negative)
[2022-11-01 06:42] VITALS: TEMP 97.7
[2022-11-01 06:46] VITALS: O2SAT 100
[2022-11-01 06:50] VITALS: BP 126/87
== END 2022-11-01 02:43 | disposition short-term general hospital (02) ==
LOC: ER 16:04
DX: R41.82 Altered mental status, unspecified (principal); N20.1 Calculus of ureter; N13.30 Unspecified hydronephrosis; R06.00 Dyspnea, unspecified; J44.9 Chronic obstructive pulmonary disease, unspecified; E11.9 Type 2 diabetes mellitus without complications; I10 Essential (primary) hypertension; Z20.822 Contact with and (suspected) exposure to COVID-19; Z86.73 Personal history of transient ischemic attack (TIA), and cerebral infarction without residual deficits; Z87.442 Personal history of urinary calculi
CPT/HCPCS: 87088; 85025; 87086; 36415; 83605; 84484; 83690; 80053; 71275; 74175; 70450; 71045; 82805; 87811; Q9967; J0360; J7040; J7030; J2405 ×2; 81003; 81015; J7613; J7644

== ENCOUNTER 2022-12-09 11:00 | Emergency (ER) | payer OTHER, BC ==
--- OUTSIDE RECORDS SUMMARY | 2022-12-09 11:09 | XMS REPORT | Continuity of Care Document ---
:1955 Author Organization [facility] t Address [address] [place] [address] [address]. [address] [place] [address] Care Team Providers Name Role Phone Germaine Masters NP Primary Care Physician GILMA CONNOLLY Attending Clinician Unavailable DOMINIC ELLINGTON Attending Clinician Unavailable Dominic Ellington MD Attending Clinician NAYELI THOMPSON Attending Clinician Unavailable Nayeli Thompson MD Attending Clinician Gilma Cormier Attending Clinician Chino Patel RN Attending Clinician Unavailable Doctor Unassigned, [place] Attending Clinician Unavailable DINO SILVA Attending Clinician Unavailable Germaine Masters NP Attending Clinician GERMAINE MASTERS Attending Clinician Unavailable NIELS TRUJILLO Attending Clinician Unavailable Niels Trujillo MD Attending Clinician Kadie Bustillo RN Attending Clinician Unavailable Alfonso Rogers DO Attending Clinician Jannette Martinez Attending Clinician Bautista Leslie MD Attending Clinician BAUTISTA LESLIE III Attending Clinician Unavailable Unknown, Attending Attending Clinician Unavailable Only, Ang Db Test Attending Clinician Unavailable UNKNOWN, ATTENDING Attending Clinician Unavailable Joyce Watts Attending Clinician JOYCE MOSES Attending Clinician Unavailable Tammy Roberts RN Attending Clinician Unavailable KIANA STRINGER Attending Clinician Unavailable NIELS TRUJILLO Admitting Clinician Unavailable ALFONSO ROGERS Admitting Clinician Unavailable Alfonso Rogers DO Admitting Clinician Payers Payer Name Policy Type Policy Number Effective Date Expiration Date S ource [employer] [place] - [id number] 2014 00:00:00 OUT OF STATE Problems Condition Condition Condition Status Onset Resolution Last Treating Co mments Source Name Details Category Date Date Treatment Clinician Date Nephrolith Nephrolith Disease Active U nivers iasis iasis 11-01 ity of 00:00: [place] [address] Medical Branch Kidney Kidney Disease Active 2014-10 Univers [place] 0 ity of 00:00: [place] [address] Medical Branch Allergies, Adverse Reactions, Alerts Allergy Allergy Status Severity Reaction(s) Onset Inactive Treating Comm ents Source Name Type Date Date Clinician NO KNOWN Drug Active Univers ALLERGIE Class ity of S [place] [facility] Social History Social Habit Start Date Stop Date Quantity Comments Source History of tobacco Current smoker Un iversity of use [place] [facility] History SDOH Social Unive rsity of Connections [facility] Med ical Together Branch History SDOH Social Unive rsity of Connections [facility] Medical Branch History SDOH Social Unive rsity of Connections [place] [facility] Membership Branch History SDOH Social Unive rsity of Connections [place] [facility] Meetings Branch Exposure to 2022-11-27 2022-12-07 Not sure University of SARS-CoV-2 (event) 00:00:00 19:24:00 [place] [facility] History SDOH 2022-11-01 2022-11-01 1 University o f Alcohol Frequency 00:00:00 00:00:00 [place] [facility] History SDOH 2022-11-01 2022-11-01 0 University o f Alcohol Std Drinks 00:00:00 00:00:00 [place] [facility] History SDOH 2022-11-01 2022-11-01 1 University o f Alcohol Binge 00:00:00 00:00:00 [place] [facility] History SDOH Social 2022-11-01 2022-11-01 5 Unive rsity of Connections Phone 00:00:00 00:00:00 [facility] edical Branch History SDOH Social 2022-11-01 2022-11-01 3 Unive rsity of Connections Living 00:00:00 00:00:00 [place] [facility] History SDOH 2022-11-01 2022-11-01 7 University o f Physical Activity 00:00:00 00:00:00 [facility] edical DPW Branch History SDNY 2022-11-01 2022-11-01 6 University o f Physical Activity 00:00:00 00:00:00 [facility] edical MPS Branch History SDOH 2022-11-01 2022-11-01 5 University o f Financial 00:00:00 00:00:00 [place] [facility] History SDOH Food 2022-11-01 2022-11-01 1 Univers ity of Worry 00:00:00 00:00:00 [place] [facility] History SDOH Food 2022-11-01 2022-11-01 1 Univers ity of Scarcity 00:00:00 00:00:00 [place] [facility] History SDOH 2022-11-01 2022-11-01 2 [place] o f Transport Med 00:00:00 00:00:00 [place] [facility] History SDNY 2022-11-01 2022-11-01 2 [place] o Transport Non-Med 00:00:00 00:00:00 [facility] edical Branch Sex Ass[birth year] At [birth year] [facility] 00:00:00 00:00:00 [facility] Smoking Status Start Date Stop Date Source Ex-smoker [facility] Branch Medications Ordered Filled Start Stop Current Ordering Indication Dosage Frequency Signature Comments Components Source Medication Medication Date Date Medication? Clinician (SIG) Name Name iopamidol 2022- No [id number] 50mL 50 mL, U nivers (ISOVUE 12-07 Intravenou ity o f 300-500 mL) 21:15: 20:22 s, ONCE, 1 [place] injection 00 :00 dose, On Medica l 50 mL [facility] Branch 12/07/22 at 1515, Routine FENTanyl PF 2022- No Slow IV Un radha (SUBLIMAZE 12-07 Push, PRN, it y of (PF)) 20:00: 08:08 Starting [place] injection 00 :26 on [facility] 12/07/22 at Branch 1400, Until Sun12/08/22 at 0208, Routine midazolam 3-0 2023- No IV Push, Uni vers (VERSED) 12-07 PRN, ity of injection 20:00: 08:08 Starting [place] 00 :26 on [facility] 12/07/22 at Branch 1400, Until Sun12/08/22 at 0208, Routine lactulose 2022-0 Yes [id number] 30mL Take 30 mL Univers 10 gram/15 1-31 by mouth ity o f mL oral 00:00: in the [place] solution 00 morning. Medical Take 60 ml Branch today.Hold if diarrhea occur lactulose 2022-0 Yes [id number] 30mL Take 30 mL Univers 10 gram/15 1-31 by mouth ity o f mL oral 00:00: in the [place] solution 00 morning. Medical Take 60 ml Branch today.Hold if diarrhea occur lactulose 2022-0 Yes [id number] 30mL Take 30 mL Univers 10 gram/15 1-31 by mouth ity o f mL oral 00:00: in the [place] solution 00 morning. Medical Take 60 ml Branch today.Hold if diarrhea occur lactulose 2022-0 Yes [id number] 30mL Take 30 mL Univers 10 gram/15 1-31 by mouth ity o f mL oral 00:00: in the [place] solution 00 morning. Medical Take 60 ml Branch today.Hold if diarrhea occur lactulose 2022-0 Yes [id number] 30mL Take 30 mL Univers 10 gram/15 1-31 by mouth ity o f mL oral 00:00: in the [place] solution 00 morning. Medical Take 60 ml Branch today.Hold if diarrhea occur lactulose 2022-0 Yes [id number] 30mL Take 30 mL Univers 10 gram/15 1-31 by mouth ity o f mL oral 00:00: in the [place] solution 00 morning. Medical Take 60 ml Branch today.Hold if diarrhea occur lactulose 2022-0 Yes [id number] 30mL Take 30 mL Univers 10 gram/15 1-31 by mouth ity o f mL oral 00:00: in the [place] solution 00 morning. Medical Take 60 ml Branch today.Hold if diarrhea occur theophyllin 2022-0 Yes 300mg Take 300 U nivers e ER 1-27 mg by ity of (MARLENY-DUR) 14:30: mouth [place] 300 mg 12 17 every 12 Medica l hr tablet (twelve) Branch hours. ALBUTEROL 2022-0 Yes 2{puff} Inhale 2 U nivers INHALE 1-27 Puffs. ity of 14:30: [place] [address] Medical Branch atorvastati 2022-0 Yes 20mg Take 20 mg Univers n (LIPITOR) 1-27 by mouth ity of 20 mg 14:30: at [place] tablet 17 bedtime. Medical Branch Fluticasone 2022-0 Yes 1{puff} Inhale 1 Univers -Salmeterol 1-27 Puff every it y of 100-50 14:30: 12 [place] mcg/dose 17 (twelve) Medical inhalation hours. Branch disk omeprazole 2022-0 Yes 40mg Take 40 mg U nivers 40 mg 1-27 by mouth ity of capsule 14:30: in the 17 morning. Medical Branch theophyllin 2022-0 Yes 300mg Take 300 U nivers e ER 1-27 mg by ity of (MARLENY-DUR) 14:30: mouth [place] 300 mg 12 17 every 12 Medica l hr tablet (twelve) Branch hours. ALBUTEROL 2022-0 Yes 2{puff} Inhale 2 U nivers INHALE 1-27 Puffs. ity of 14:30: [place] [address] Medical Branch atorvastati 2022-0 Yes 20mg Take 20 mg Univers n (LIPITOR) 1-27 by mouth ity of 20 mg 14:30: at [place] tablet 17 bedtime. Medical Branch Fluticasone 2022-0 Yes 1{puff} Inhale 1 Univers -Salmeterol 1-27 Puff every it y of 100-50 14:30: 12 [place] mcg/dose 17 (twelve) Medical inhalation hours. Branch disk omeprazole 3-0 Yes 40mg Take 40 mg U nivers 40 mg 1-27 by mouth ity of capsule 14:30: in the [place] 17 morning. Medical Branch theophyllin 3-0 Yes 300mg Take 300 U nivers e ER 1-27 mg by ity of (MARLENY-DUR) 14:30: mouth [place] 300 mg 12 17 every 12 Medica l hr tablet (twelve) Branch hours. ALBUTEROL 3-0 Yes 2{puff} Inhale 2 U nivers INHALE 1-27 Puffs. ity of 14:30: [place] [address] Medical Branch atorvastati 0 Yes 20mg Take 20 mg Univers n (LIPITOR) 1-27 by mouth ity of 20 mg 14:30: at [place] tablet 17 bedtime. Medical Branch Fluticasone 0 Yes 1{puff} Inhale 1 Univers -Salmeterol 1-27 Puff every it y of 100-50 14:30: 12 [place] mcg/dose 17 (twelve) Medical inhalation hours. Branch disk omeprazole 0 Yes 40mg Take 40 mg U nivers 40 mg 1-27 by mouth ity of capsule 14:30: in the [place] 17 morning. Medical Branch theophyllin 0 Yes 300mg Take 300 U nivers e ER 1-27 mg by ity of (MARLENY-DUR) 14:30: mouth [place] 300 mg 12 17 every 12 Medica l hr tablet (twelve) Branch hours. ALBUTEROL 0 Yes 2{puff} Inhale 2 U nivers INHALE 1-27 Puffs. ity of 14:30: [place] [address] Medical Branch atorvastati Yes 20mg Take 20 mg Univers n (LIPITOR) 1-27 by mouth ity of 20 mg 14:30: at [place] tablet 17 bedtime. Medical Branch Fluticasone 0 Yes 1{puff} Inhale 1 Univers -Salmeterol 1-27 Puff every it y of 100-50 14:30: 12 [place] mcg/dose 17 (twelve) Medical inhalation hours. Branch disk omeprazole 0 Yes 40mg Take 40 mg U nivers 40 mg 1-27 by mouth ity of capsule 14:30: in the [place] 17 morning. Medical Branch theophyllin 0 Yes 300mg Take 300 U nivers e ER 1-27 mg by ity of (MARLENY-DUR) 14:30: mouth [place] 300 mg 12 17 every 12 Medica l hr tablet (twelve) Branch hours. ALBUTEROL 2022-0 Yes 2{puff} Inhale 2 U nivers INHALE 1-27 Puffs. ity of 14:30: [place] [address] Medical Branch atorvastati 0 Yes 20mg Take 20 mg Univers n (LIPITOR) 1-27 by mouth ity of 20 mg 14:30: at [place] tablet 17 bedtime. Medical Branch Fluticasone 2022-0 Yes 1{puff} Inhale 1 Univers -Salmeterol 1-27 Puff every it y of 100-50 14:30: 12 [place] mcg/dose 17 (twelve) Medical inhalation hours. Branch disk omeprazole 2022-0 Yes 40mg Take 40 mg U nivers 40 mg 1-27 by mouth ity of capsule 14:30: in the 17 morning. Medical Branch theophyllin 2022-0 Yes 300mg Take 300 U nivers e ER 1-27 mg by ity of (MARLENY-DUR) 14:30: mouth [place] 300 mg 12 17 every 12 Medica l hr tablet (twelve) Branch hours. ALBUTEROL 2022-0 Yes 2{puff} Inhale 2 U nivers INHALE 1-27 Puffs. ity of 14:30: [place] [address] Medical Branch atorvastati 2022-0 Yes 20mg Take 20 mg Univers n (LIPITOR) 1-27 by mouth ity of 20 mg 14:30: at [place] tablet 17 bedtime. Medical Branch Fluticasone 2022-0 Yes 1{puff} Inhale 1 Univers -Salmeterol 1-27 Puff every it y of 100-50 14:30: 12 [place] mcg/dose 17 (twelve) Medical inhalation hours. Branch disk omeprazole 2022-0 Yes 40mg Take 40 mg U nivers 40 mg 1-27 by mouth ity of capsule 14:30: in the [place] [address] morning. Medical Branch theophyllin 2022-0 Yes 300mg Take 300 U nivers e ER 1-27 mg by ity of (MARLENY-DUR) 14:30: mouth [place] 300 mg 12 17 every 12 Medica l hr tablet (twelve) Branch hours. ALBUTEROL 2022-0 Yes 2{puff} Inhale 2 U nivers INHALE 1-27 Puffs. ity of 14:30: [place] [address] Medical Branch atorvastati 2022-0 Yes 20mg Take 20 mg Univers n (LIPITOR) 1-27 by mouth ity of 20 mg 14:30: at [place] tablet 17 bedtime. Medical Branch Fluticasone 2022-0 Yes 1{puff} Inhale 1 Univers -Salmeterol 1-27 Puff every it y of 100-50 14:30: 12 [place] mcg/dose 17 (twelve) Medical inhalation hours. Branch disk omeprazole Yes 40mg Take 40 mg U nivers 40 mg 11-10 by mouth ity of capsule 14:30: in the [place] 17 morning. Medical Branch iopamidol 2022- No [id number] 120mL 120 mL, Univers (ISOVUE 11-09 Intravenou ity o f 370-500 mL) 21:15: 20:26 s, ONCE, 1 [place] injection 00 :00 dose, On Medica l 120 mL [facility] Branch 11/09/22 at 1515, Routine sulfamethox 2022- Yes 1{tbl} 1 tablet, Univers azole-trime 11-04 Oral, BID, i ty of thoprim 02:00: 01:59 14 [place], [place] (BA[place] 00 :00 First dose Medic al DS) 800-160 on Sun Branch mg per 11/03/22 at tablet 1 2000, Last tablet dose on Sun11/10/22 at 0800, MARY KAY
Re ason for Anti-Infec tive: Empiric Therapy for Suspected Infection< br>Empiric Therapy Site: Pelvic
Duration of therapy: 5 days tamsulosin 2022- Yes [id number] .4mg Take 1 Univers 0.4 mg 24 11-04 capsule by ity of hr capsule 00:00: 04:59 mouth in [place] 00 :00 the [facility] for 90 days. tamsulosin 2022- Yes [id number] .4mg Take 1 Univers 0.4 mg 24 11-04 capsule by ity of hr capsule 00:00: 04:59 mouth in [place] 00 :00 the [facility] for 90 days. tamsulosin 2022- Yes [id number] .4mg Take 1 Univers 0.4 mg 24 11-04 capsule by ity of hr capsule 00:00: 04:59 mouth in [place] 00 :00 the Medical [facility] for 90 days. tamsulosin 2022- Yes [id number] .4mg Take 1 Univers 0.4 mg 24 1-21 04-22 capsule by ity of hr capsule 00:00: 04:59 mouth in [place] 00 :00 the Medical morning Branch for 90 days. tamsulosin 2022- Yes [id number] .4mg Take 1 Univers 0.4 mg 24 -02 02-22 capsule by ity of hr capsule 00:00: 04:59 mouth in [place] 00 :00 the Medical morning Branch for 90 days. tamsulosin 2022- Yes [id number] .4mg Take 1 Univers 0.4 mg 24 -02 02- capsule by ity of hr capsule 00:00: 04:59 mouth in [place] 00 :00 the Medical morning Branch for 90 days. tamsulosin 2022- Yes [id number] .4mg Take 1 Univers 0.4 mg 24 -02 02- capsule by ity of hr capsule 00:00: 04:59 mouth in [place] 00 :00 the Medical morning Branch for 90 days. tamsulosin 2022- Yes [id number] .4mg Take 1 Univers 0.4 mg 24 11-04- capsule by ity of hr capsule 00:00: 04:59 mouth in [place] 00 :00 the Medical morning Branch for 90 days. tamsulosin 2022- Yes [id number] .4mg Take 1 Univers 0.4 mg 24 11-04- capsule by ity of hr capsule 00:00: 04:59 mouth in [place] 00 :00 the Medical morning Branch for 90 days. tamsulosin 2022- Yes [id number] .4mg Take 1 Univers 0.4 mg 24 11-04- capsule by ity of hr capsule 00:00: 04:59 mouth in [place] 00 :00 the Medical morning Branch for 90 days. tamsulosin 2022- Yes [id number] .4mg Take 1 Univers 0.4 mg 24 1-02 02-22 capsule by ity of hr capsule 00:00: 04:59 mouth in [place] 00 :00 the Medical morning Branch for 90 days. tamsulosin 2022- Yes [id number] .4mg Take 1 Univers 0.4 mg 24 -02 02-22 capsule by ity of hr capsule 00:00: 04:59 mouth in [place] 00 :00 the Medical morning Branch for 90 days. theophyllin Yes 300mg Take 300 U nivers e ER 1-20 mg by ity of (MARLENY-DUR) 18:41: mouth [place] 300 mg 12 49 every 12 Medica l hr tablet (twelve) Branch hours. ALBUTEROL 0 Yes 2{puff} Inhale 2 U nivers INHALE 1-20 Puffs. ity of 18:41: [place] 49 Medical Branch nitroglycer [address] 0.4 U nivers in 1-20 mg under ity of (NITROSTAT) 18:41: the tongue [place] 0.4 mg 49 as needed Medical sublingual for Chest Bran ch tablet pain. atorvastati Yes 20mg Take 20 mg Univers n (LIPITOR) 1-20 by mouth ity of 20 mg 18:41: at [place] tablet 49 bedtime. Medical Branch lisinopriL Yes 2.5mg Take 2.5 Un radha 2.5 mg 1-20 mg by ity of tablet 18:41: mouth [place] 49 daily. Medical Branch triamterene Yes 1{capsu Take 1 U nivers -hydrochlor 1-20 le} capsule by it y of othiazide 18:41: mouth [place] 37.5-25 mg 49 every Medical per capsule morning. Bran ch potassium Yes 10meq Take 10 Univ ers chloride 10 1-20 mEq by ity of mEq CR 18:41: mouth 2 [place] capsule 49 (two) Medical times Branch daily. tiotropium- Yes 1{puff} Inhale 1 Univers olodateroL 1-20 Puff. ity of (STIOLTO 18:41: [place] RESPIMAT) 49 Medical 2.5-2.5 Branch mcg/actuati on Mist Fluticasone 0 Yes 1{puff} Inhale 1 Univers -Salmeterol 1-20 Puff every it y of 100-50 18:41: 12 [place] mcg/dose 49 (twelve) Medical inhalation hours. Branch disk omeprazole Yes 40mg Take 40 mg U nivers 40 mg 1-20 by mouth ity of capsule 18:41: in the [place] 49 morning. Medical Branch theophyllin Yes 300mg Take 300 U nivers e ER 1-20 mg by ity of (MARLENY-DUR) 18:41: mouth [place] 300 mg 12 49 every 12 Medica l hr tablet (twelve) Branch hours. ALBUTEROL Yes 2{puff} Inhale 2 U nivers INHALE 1-20 Puffs. ity of 18:41: [place] 49 Medical Branch nitroglycer Yes .4mg Place 0.4 U nivers in 1-20 mg under ity of (NITROSTAT) 18:41: the tongue [place] 0.4 mg 49 as needed Medical sublingual for Chest Bran ch tablet pain. atorvastati Yes 20mg Take 20 mg Univers n (LIPITOR) 1-20 by mouth ity of 20 mg 18:41: at [place] tablet 49 bedtime. Medical Branch lisinopriL Yes 2.5mg Take 2.5 Un radha 2.5 mg 1-20 mg by ity of tablet 18:41: mouth [place] 49 daily. Medical Branch triamterene Yes 1{capsu Take 1 U nivers -hydrochlor 1-20 le} capsule by it y of othiazide 18:41: mouth [place] 37.5-25 mg 49 every Medical per capsule morning. Bran ch potassium Yes 10meq Take 10 Univ ers chloride 10 1-20 mEq by ity of mEq CR 18:41: mouth 2 [place] capsule 49 (two) Medical times Branch daily. tiotropium- Yes 1{puff} Inhale 1 Univers olodateroL 1-20 Puff. ity of (STIOLTO 18:41: [place] RESPIMAT) 49 Medical 2.5-2.5 Branch mcg/actuati on Mist Fluticasone Yes 1{puff} Inhale 1 Univers -Salmeterol 1-20 Puff every it y of 100-50 18:41: 12 [place] mcg/dose 49 (twelve) Medical inhalation hours. Branch disk omeprazole Yes 40mg Take 40 mg U nivers 40 mg 1-20 by mouth ity of capsule 18:41: in the [place] 49 morning. Medical Branch theophyllin Yes 300mg Take 300 U nivers e ER 1-20 mg by ity of (MARLENY-DUR) 18:41: mouth [place] 300 mg 12 49 every 12 Medica l hr tablet (twelve) Branch hours. ALBUTEROL Yes 2{puff} Inhale 2 U nivers INHALE 1-20 Puffs. ity of 18:41: [place] 49 Medical Branch nitroglycer Yes .4mg Place 0.4 U nivers in 1-20 mg under ity of (NITROSTAT) 18:41: the tongue [place] 0.4 mg 49 as needed Medical sublingual for Chest Bran ch tablet pain. atorvastati Yes 20mg Take 20 mg Univers n (LIPITOR) 1-20 by mouth ity of 20 mg 18:41: at [place] tablet 49 bedtime. Medical Branch lisinopriL Yes 2.5mg Take 2.5 Un radha 2.5 mg 1-20 mg by ity of tablet 18:41: mouth [place] 49 daily. Medical Branch triamterene Yes 1{capsu Take 1 U nivers -hydrochlor 1-20 le} capsule by it y of othiazide 18:41: mouth [place] 37.5-25 mg 49 every Medical per capsule morning. Bran ch potassium Yes 10meq Take 10 Univ ers chloride 10 1-20 mEq by ity of mEq CR 18:41: mouth 2 [place] capsule 49 (two) Medical times Branch daily. tiotropium- Yes 1{puff} Inhale 1 Univers olodateroL 1-20 Puff. ity of (STIOLTO 18:41: [place] RESPIMAT) 49 Medical 2.5-2.5 Branch mcg/actuati on Mist Fluticasone Yes 1{puff} Inhale 1 Univers -Salmeterol 1-20 Puff every it y of 100-50 18:41: 12 [place] mcg/dose 49 (twelve) Medical inhalation hours. Branch disk omeprazole Yes 40mg Take 40 mg U nivers 40 mg 1-20 by mouth ity of capsule 18:41: in the [place] 49 morning. Medical Branch theophyllin Yes 300mg Take 300 U nivers e ER 1-20 mg by ity of (MARLENY-DUR) 18:41: mouth [place] 300 mg 12 49 every 12 Medica l hr tablet (twelve) Branch hours. ALBUTEROL Yes 2{puff} Inhale 2 U nivers INHALE 1-20 Puffs. ity of 18:41: [place] 49 Medical Branch nitroglycer Yes .4mg Place 0.4 U nivers in 1-20 mg under ity of (NITROSTAT) 18:41: the tongue [place] 0.4 mg 49 as needed Medical sublingual for Chest Bran ch tablet pain. atorvastati Yes 20mg Take 20 mg Univers n (LIPITOR) 1-20 by mouth ity of 20 mg 18:41: at [place] tablet 49 bedtime. Medical Branch lisinopriL Yes 2.5mg Take 2.5 Un radha 2.5 mg 1-20 mg by ity of tablet 18:41: mouth [place] 49 daily. Medical Branch triamterene Yes 1{capsu Take 1 U nivers -hydrochlor 1-20 le} capsule by it y of othiazide 18:41: mouth [place] 37.5-25 mg 49 every Medical per capsule morning. Bran ch potassium Yes 10meq Take 10 Univ ers chloride 10 1-20 mEq by ity of mEq CR 18:41: mouth 2 [place] capsule 49 (two) Medical times Branch daily. tiotropium- Yes 1{puff} Inhale 1 Univers olodateroL 1-20 Puff. ity of (STIOLTO 18:41: [place] RESPIMAT) 49 Medical 2.5-2.5 Branch mcg/actuati on Mist Fluticasone Yes 1{puff} Inhale 1 Univers -Salmeterol 1-20 Puff every it y of 100-50 18:41: 12 [place] mcg/dose 49 (twelve) Medical inhalation hours. Branch disk omeprazole Yes 40mg Take 40 mg U nivers 40 mg 1-20 by mouth ity of capsule 18:41: in the [place] 49 morning. Medical Branch nitroglycer Yes .4mg Place 0.4 U nivers in 1-20 mg under ity of (NITROSTAT) 18:41: the tongue [place] 0.4 mg 49 as needed Medical sublingual for Chest Bran ch tablet pain. lisinopriL 0 Yes 2.5mg Take 2.5 Un radha 2.5 mg 1-20 mg by ity of tablet 18:41: mouth [place] 49 daily. Medical Branch triamterene Yes 1{capsu Take 1 U nivers -hydrochlor 1-20 le} capsule by it y of othiazide 18:41: mouth [place] 37.5-25 mg 49 every Medical per capsule morning. Bran ch potassium Yes 10meq Take 10 Univ ers chloride 10 1-20 mEq by ity of mEq CR 18:41: mouth 2 [place] capsule 49 (two) Medical times Branch daily. tiotropium- Yes 1{puff} Inhale 1 Univers olodateroL 1-20 Puff. ity of (STIOLTO 18:41: [place] RESPIMAT) 49 Medical 2.5-2.5 Branch mcg/actuati on Mist nitroglycer Yes .4mg Place 0.4 U nivers in 1-20 mg under ity of (NITROSTAT) 18:41: the tongue [place] 0.4 mg 49 as needed Medical sublingual for Chest Bran ch tablet pain. lisinopriL 0 Yes 2.5mg Take 2.5 Un radha 2.5 mg 1-20 mg by ity of tablet 18:41: mouth [place] 49 daily. Medical Branch triamterene Yes 1{capsu Take 1 U nivers -hydrochlor 1-20 le} capsule by it y of othiazide 18:41: mouth [place] 37.5-25 mg 49 every Medical per capsule morning. Bran ch potassium Yes 10meq Take 10 Univ ers chloride 10 1-20 mEq by ity of mEq CR 18:41: mouth 2 [place] capsule 49 (two) Medical times Branch daily. tiotropium- Yes 1{puff} Inhale 1 Univers olodateroL 1-20 Puff. ity of (STIOLTO 18:41: [place] RESPIMAT) 49 Medical 2.5-2.5 Branch mcg/actuati on Mist nitroglycer [address] 0.4 U nivers in 1-20 mg under ity of (NITROSTAT) 18:41: the tongue [place] 0.4 mg 49 as needed Medical sublingual for Chest Bran ch tablet pain. lisinopriL 0 Yes 2.5mg Take 2.5 Un radha 2.5 mg 1-20 mg by ity of tablet 18:41: mouth [place] 49 daily. Medical Branch triamterene Yes 1{capsu Take 1 U nivers -hydrochlor 1-20 le} capsule by it y of othiazide 18:41: mouth [place] 37.5-25 mg 49 every Medical per capsule morning. Bran ch potassium Yes 10meq Take 10 Univ ers chloride 10 1-20 mEq by ity of mEq CR 18:41: mouth 2 [place] capsule 49 (two) Medical times Branch daily. tiotropium- Yes 1{puff} Inhale 1 Univers olodateroL 1-20 Puff. ity of (STIOLTO 18:41: [place] RESPIMAT) 49 Medical 2.5-2.5 Branch mcg/actuati on Mist nitroglycer Yes .4mg Place 0.4 U nivers in 1-20 mg under ity of (NITROSTAT) 18:41: the tongue [place] 0.4 mg 49 as needed Medical sublingual for Chest Bran ch tablet pain. lisinopriL Yes 2.5mg Take 2.5 Un radha 2.5 mg 1-20 mg by ity of tablet 18:41: mouth [place] 49 daily. Medical Branch triamterene Yes 1{capsu Take 1 U nivers -hydrochlor 1-20 le} capsule by it y of othiazide 18:41: mouth [place] 37.5-25 mg 49 every Medical per capsule morning. Bran ch potassium Yes 10meq Take 10 Univ ers chloride 10 1-20 mEq by ity of mEq CR 18:41: mouth 2 [place] capsule 49 (two) Medical times Branch daily. tiotropium- Yes 1{puff} Inhale 1 Univers olodateroL 1-20 Puff. ity of (STIOLTO 18:41: [place] RESPIMAT) 49 Medical 2.5-2.5 Branch mcg/actuati on Mist nitroglycer Yes .4mg Place 0.4 U nivers in 1-20 mg under ity of (NITROSTAT) 18:41: the tongue [place] 0.4 mg 49 as needed Medical sublingual for Chest Bran ch tablet pain. lisinopriL 0 Yes 2.5mg Take 2.5 Un radha 2.5 mg 1-20 mg by ity of tablet 18:41: mouth [place] 49 daily. Medical Branch triamterene Yes 1{capsu Take 1 U nivers -hydrochlor 1-20 le} capsule by it y of othiazide 18:41: mouth [place] 37.5-25 mg 49 every Medical per capsule morning. Bran ch potassium Yes 10meq Take 10 Univ ers chloride 10 1-20 mEq by ity of mEq CR 18:41: mouth 2 [place] capsule 49 (two) Medical times Branch daily. tiotropium- Yes 1{puff} Inhale 1 Univers olodateroL 1-20 Puff. ity of (STIOLTO 18:41: [place] RESPIMAT) 49 Medical 2.5-2.5 Branch mcg/actuati on Mist nitroglycer Yes .4mg Place 0.4 U nivers in 1-20 mg under ity of (NITROSTAT) 18:41: the tongue [place] 0.4 mg 49 as needed Medical sublingual for Chest Bran ch tablet pain. lisinopriL Yes 2.5mg Take 2.5 Un radha 2.5 mg 1-20 mg by ity of tablet 18:41: mouth [place] 49 daily. Medical Branch triamterene Yes 1{capsu Take 1 U nivers -hydrochlor 1-20 le} capsule by it y of othiazide 18:41: mouth [place] 37.5-25 mg 49 every Medical per capsule morning. Bran ch potassium Yes 10meq Take 10 Univ ers chloride 10 1-20 mEq by ity of mEq CR 18:41: mouth 2 [place] capsule 49 (two) Medical times Branch daily. tiotropium- Yes 1{puff} Inhale 1 [facility] olodateroL 1-20 Puff. ity of (STIOLTO 18:41: [place] RESPIMAT) 49 Medical 2.5-2.5 Branch mcg/actuati on Mist nitroglycer Yes .4mg Place 0.4 U nivers in 1-20 mg under ity of (NITROSTAT) 18:41: the tongue [place] 0.4 mg 49 as needed Medical sublingual for Chest Bran ch tablet pain. lisinopriL Yes 2.5mg Take 2.5 Un radha 2.5 mg 1-20 mg by ity of tablet 18:41: mouth [place] 49 daily. Medical Branch triamterene Yes 1{capsu Take 1 U nivers -hydrochlor 1-20 le} capsule by it y of othiazide 18:41: mouth [place] 37.5-25 mg 49 every Medical per capsule morning. Bran ch potassium Yes 10meq Take 10 Univ ers chloride 10 1-20 mEq by ity of mEq CR 18:41: mouth 2 [place] capsule 49 (two) Medical times Branch daily. tiotropium- Yes 1{puff} Inhale 1 [facility] olodateroL 1-20 Puff. ity of (STIOLTO 18:41: [place] RESPIMAT) 49 Medical 2.5-2.5 Branch mcg/actuati on Mist ipratropium 2022- No 3mL 3 mL, Univ ers -albuteroL -20 -20 Inhalation it y of (DUONEB) 15:30: 17:21 , ONCE [place] 0.5 mg-3 00 :00 NOW, 1 Medical mg(2.5 mg dose, On Branch base)/3 mL Fri nebulizer 11/03/22 at solution 3 0930, mL Routine KCL 2022- No 40meq 40 mEq, Univers (KLOR-CON -20 -20 Oral, ity of M20) tablet 14:00: 14:21 ONCE, 1 [place] 40 mEq 00 :00 dose, On Medical Fri Branch 11/03/22 at 0800, Routine ranitidine 2022- No 300mg Take 300 U nivers 300 mg 1-20 01-20 mg by ity of tablet 11:32: 00:00 mouth at [place] 07 :00 bedtime. Medical Branch ranitidine 2022- No 300mg Take 300 U nivers 300 mg 1-20 01-20 mg by ity of tablet 11:32: 00:00 mouth at [place] 07 :00 bedtime. Medical Branch amLODIPine 2022- No 5mg Take 5 mg U nivers (NORVASC) 5 1-20 01-20 by mouth ity of mg tablet 10:41: 00:00 daily. [place] 22 :00 Medical Branch Fluticasone 2022- No 1{puff} Inhale 1 Univers Propionate 1-20 01-20 Puff 2 ity of (FLOVENT 10:41: 00:00 (two) [place] DISKUS) 250 22 :00 times Medical mcg/actuati daily. Branch on inhalation disk amLODIPine 2022- No 5mg Take 5 mg U nivers (NORVASC) 5 1-20 01-20 by mouth ity of mg tablet 10:41: 00:00 daily. [place] 22 :00 Medical Branch Fluticasone 2022- No 1{puff} Inhale 1 [facility] Propionate 1-20 01-20 Puff 2 ity of (FLOVENT 10:41: 00:00 (two) [place] DISKUS) 250 22 :00 times Medical mcg/actuati daily. Branch on inhalation disk theophyllin Yes 300mg Take 300 U nivers e ER 1-20 mg by ity of (MARLENY-DUR) 10:41: mouth [place] 300 mg 12 19 every 12 Medica l hr tablet (twelve) Branch hours. ALBUTEROL Yes 2{puff} Inhale 2 U nivers INHALE 1-20 Puffs. ity of 10:41: [place] 19 Medical Branch nitroglycer Yes .4mg Place 0.4 U nivers in 1-20 mg under ity of (NITROSTAT) 10:41: the tongue [place] 0.4 mg 19 as needed Medical sublingual for Chest Bran ch tablet pain. atorvastati Yes 20mg Take 20 mg Univers n (LIPITOR) 1-20 by mouth ity of 20 mg 10:41: at [place] tablet 19 bedtime. Medical Branch lisinopriL Yes 2.5mg Take 2.5 Un radha 2.5 mg 1-20 mg by ity of tablet 10:41: mouth [place] 19 daily. Medical Branch triamterene Yes 1{capsu Take 1 U nivers -hydrochlor 1-20 le} capsule by it y of othiazide 10:41: mouth [place] 37.5-25 mg 19 every Medical per capsule morning. Bran ch potassium Yes 10meq Take 10 Univ ers chloride 10 1-20 mEq by ity of mEq CR 10:41: mouth 2 [place] capsule 19 (two) Medical times Branch daily. tiotropium- Yes 1{puff} Inhale 1 [facility] olodateroL 1-20 Puff. ity of (STIOLTO 10:41: [place] RESPIMAT) 19 Medical 2.5-2.5 Branch mcg/actuati on Mist Fluticasone Yes 1{puff} Inhale 1 Univers -Salmeterol 1-20 Puff every it y of 100-50 10:41: 12 [place] mcg/dose 19 (twelve) Medical inhalation hours. Branch disk omeprazole Yes 40mg Take 40 mg U nivers 40 mg 1-20 by mouth ity of capsule 10:41: in the [place] 19 morning. Medical Branch BUPROPION 0 2022- No 150mg Take 150 Un radha HCL ORAL 1-20 01-20 mg by ity of 10:34: 00:00 mouth. [place] 38 :00 Medical Branch SERTraline 2022- No 25mg Take 25 mg Univers (ZOLOFT) 25 -20 -20 by mouth ity of mg tablet 10:34: 00:00 daily. [place] 38 :00 Medical Branch aclidinium 2022- No Inhale. Uni vers bromide -20 -20 ity of (TUDORZA 10:34: 00:00 [place] PRESSAIR) 38 :00 Medical 400 Branch mcg/actuati on aerosol powder clopidogrel 2022- No 75mg Take 75 mg Univers (PLAVIX) 75 -20 -20 by mouth ity of mg tablet 10:34: 00:00 daily. [place] 38 :00 Medical Branch dicyclomine 0 2022- No 20mg Take 20 mg Univers 20 mg 1-20 01-20 by mouth 4 ity of tablet 10:34: 00:00 (four) [place] 38 :00 times Medical daily as Branch needed for Abdominal pain. BUPROPION 0 2022- No 150mg Take 150 Un radha HCL ORAL 1-20 01-20 mg by ity of 10:34: 00:00 mouth. [place] 38 :00 Medical Branch SERTraline 2022- No 25mg Take 25 mg Univers (ZOLOFT) 25 11-03 by mouth ity of mg tablet 10:34: 00:00 daily. [place] 38 :00 Medical Branch aclidinium 2022- No Inhale. Uni vers bromide 11-03 ity of (TUDORZA 10:34: 00:00 [place] PRESSAIR) 38 :00 Medical 400 Branch mcg/actuati on aerosol powder clopidogrel 2022- No 75mg Take 75 mg Univers (PLAVIX) 75 11-03 by mouth ity of mg tablet 10:34: 00:00 daily. [place] 38 :00 Medical Branch dicyclomine No 20mg Take 20 mg [facility] 20 mg 11-03 by mouth 4 ity of tablet 10:34: 00:00 (four) [place] 38 :00 times Medical daily as Branch needed for Abdominal pain. zolpidem No 5mg Take 5 mg Uni vers (AMBIEN) 5 11-03 by mouth ity of mg tablet 07:03: 00:00 at bedtime [place] 51 :00 as needed Medical for Branch Insomnia. zolpidem 2022- No 5mg Take 5 mg Uni vers (AMBIEN) 5 11-03 by mouth ity of mg tablet 07:03: 00:00 at bedtime [place] 51 :00 as needed Medical for Branch Insomnia. ondansetron 2022- Yes 4mg 4 mg, Slow Univers (ZOFRAN 11-03 IV Push, ity of (PF)) 06:21: 06:20 Q6HPRN, [place] injection 4 29 :29 Nausea and Me dical mg Vomiting Branch (N/V), Starting on Sun11/03/22 at 0021, For 1 day
Dos es of ondansetro n 16 mg and above need to be administer ed via IV piggyback. For Dose >=24mg ECG monitoring is advisable.
sulfamethox 2022- Yes [id number] 1{tbl} Take 1 Univers azole-trime 11-03 tablet by it y of thoprim 00:00: 05:59 mouth in [place] 800-160 mg 00 :00 the Medical per tablet morning Branch and 1 tablet in the evening. Do all this for 7 days. sulfamethox 2022- Yes [id number] 1{tbl} Take 1 Univers azole-trime -11-11 tablet by it y of thoprim 00:00: 05:59 mouth in [place] 800-160 mg 00 :00 the Medical per tablet morning Branch and 1 tablet in the evening. Do all this for 7 days. sulfamethox 2022- Yes [id number] 1{tbl} Take 1 Univers azole-trime -11-11 tablet by it y of thoprim 00:00: 05:59 mouth in [place] 800-160 mg 00 :00 the Medical per tablet morning Branch and 1 tablet in the evening. Do all this for 7 days. sulfamethox 2022- Yes [id number] 1{tbl} Take 1 [facility] azole-trime 11-03 tablet by it y of thoprim 00:00: 05:59 mouth in [place] 800-160 mg 00 :00 the Medical per tablet morning Branch and 1 tablet in the evening. Do all this for 7 days. sulfamethox 2022- Yes [id number] 1{tbl} Take 1 [facility] azole-trime 11-03 tablet by it y of thoprim 00:00: 05:59 mouth in [place] 800-160 mg 00 :00 the Medical per tablet morning Branch and 1 tablet in the evening. Do all this for 7 days. ipratropium Yes 3mL 3 mL, Unive rs -albuteroL 11-02 Inhalation ity of (DUONEB) 18:15: , QIDPRN, [place] 0.5 mg-3 00 Starting Medical mg(2.5 mg on Deanna Branch base)/3 mL 11/02/22 at nebulizer 1215, solution 3 Until mL Discontinu ed, Routine, Wheezing ondansetron 2022- No 4mg 4 mg, Slow Univers (ZOFRAN 11-02 IV Push, ity of (PF)) 18:15: 18:29 ONCE, On [place] injection 4 00 :00 [place] Medical mg 11/02/22 at Branch 1215, For 1 dose
Do ses of ondansetro n 16 mg and above need to be administer ed via IV piggyback. For Dose >=24mg ECG monitoring is advisable.
furosemide 0 2022- No 40mg 40 mg, Univ ers (LASIX) 11-02 Slow IV ity of injection 15:45: 18:10 Push, BID, [place] 40 mg 00 :56 First dose Medical on Deanna Branch 11/02/22 at 0945, Until Discontinu ed, Routine magnesium 2022-2022- No 2g 2 g, IV Univ ers sulfate in 11-02 Piggyback, it y of water 2 15:00: 15:20 Administer [place] gram/50 mL 00 :00 over 60 Medica l (4 %) Minutes, Branch infusion 2 ONCE, 1 g dose, On Deanna 11/02/22 at 0900, Routine insulin 2022-0 Yes 3U 3 Units, Univer s lispro 11-02 Subcutaneo ity of (human) 13:30: us, TIDAC, [place] (HumaLOG 00 First dose Medic al U-100) on Deanna Branch injection 3 11/02/22 at Units 0730, Until Discontinu ed, Routine HYDROcodone 2022-0 Yes 1{tbl} 1 tablet, Univers -acetaminop 11-02 Oral, ity of hen (NORCO 11:10: Q6HPRN, 4 [place] 5) 5-325 mg 16 doses, Medica l tablet 1 Starting Branch tablet on Deanna 11/02/22 at 0510, Until Discontinu ed, Routine, Pain (scale 4-6), Pain (scale 7-10) acetaminoph 2022-0 Yes 500mg 500 mg, Un radha en 11-02 Oral, ity of (TYLENOL) 07:47: Q6HPRN, [place] tablet 500 23 Starting Medic al mg on Deanna Branch 11/02/22 at 0147, Until Discontinu ed, Routine, Pain (scale 1-3), Pain (scale 4-6) insulin 2022-0 Yes .15U/kg 11 Units Uni vers glargine 1-19 /d (rounded ity of (LANTUS 03:00: from 10.86 [place] U-100) 00 Units = Medical injection 0.15 Branch 11 Units Units/kg/d ay ?72.4 kg), Subcutaneo us, QHS, First dose on Sun11/01/22 at 2100, Until Discontinu ed, Routine atorvastati Yes 20mg 20 mg, Univ ers n (LIPITOR) 1-19 Oral, QHS, it y of tablet 20 03:00: First dose [place] mg 00 on Sun11/01/22 at Branch 2100, Until Discontinu ed, Routine HYDROcodone 2022- No 1{tbl} 1 tablet, Univers -acetaminop 11-02 Oral, ity of hen (NORCO 00:45: 01:43 ONCE, 1 [place] 5) 5-325 mg 00 :00 dose, On [facility] tablet 1 [facility] tablet 11/01/22 at 1845, Routine iopamidol 2022- No [id number] 100mL 100 mL, Univers (ISOVUE 11-01 Enteral, ity of 300-100 mL) 20:30: 19:35 ONCE, 1 [place] injection 00 :00 dose, On Medica l 100 mL [facility] 11/01/22 at 1430, Routine lidocaine 2022- No PRN, Univers 1% (PF) 11-01 Starting ity of (XYLOCAINE) 19:19: 19:19 on Sun [place] as injection 47 :47 11/01/[address] [facility] 1319, Branch Until Sun11/01/22 at 1319, Routine FENTanyl PF 2022- No Slow IV Un radha (SUBLIMAZE 11-01 Push, PRN, it y of (PF)) 19:19: 19:28 Starting [place] injection 29 :20 on Sun11/01/22 at Branch 1319, Until Sun11/01/22 at 1328, Routine cefTRIAXone 2022- No 2000mg 2,000 mg, Univers (ROCEPHIN) 11-01 Intravenou it y of 2,000 mg in 17:30: 14:38 s, Q24H [place] water for 00 :13 ABX, 7 Medical injection, doses, Branch sterile 20 First dose mL SIVP on Sun syringe 11/01/22 at 1130, Last dose on 11/07/22 at 1130, 20 mL
Reas on for Anti-Infec tive: Documented Infection< br>Documen sonido Infection Site: Urine
D uration of Therapy: 7 days tamsulosin 2022-0 Yes .4mg 0.4 mg, Univ ers (FLOMAX) 11-01 Oral, ity of capsule 0.4 15:00: DAILY, [place] mg 00 First dose Medical on Sun Branch 11/01/22 at 0900, Until Discontinu ed, Routine omeprazole Yes 40mg 40 mg, Unive rs (PRILOSEC) 11-01 Oral, ity of capsule 40 15:00: DAILY, [place] mg 00 First dose Medical on Sun Branch 11/01/22 at 0900, Until Discontinu ed Sliding Yes Subcutaneo [facility] ers Scale -18 us, TID ity of Insulin - 14:00: MEALS+HS, [place] as Lispro 00 First dose Medical (HumaLOG) + on Sun Branch Fsbg 11/01/22 at Testing 0800, Until Discontinu ed, Routine heparin Yes 5000U 5,000 Univers (porcine) 18 Units, ity of injection 14:00: Subcutaneo [place] 5,000 Units 00 us, Q12H, Med ical First dose Branch on Sun11/01/22 at 0800, Until Discontinu ed, Routine ipratropium 2022- No 3mL 3 mL, [facility] ers -albuteroL 11-01 Inhalation it y of (DUONEB) 14:00: 18:09 , QID, [place] 0.5 mg-3 00 :49 First dose Medic al mg(2.5 mg (after Branch base)/3 mL last nebulizer modificati solution 3 on) on Sun mL 11/01/22 at 0800, Until Discontinu ed, Routine magnesium 0 2022- No 2g 2 g, IV Univ ers sulfate in 11-01 Piggyback, it y of water 2 12:45: 16:26 Administer [place] gram/50 mL 00 :00 over 60 Medica l (4 %) Minutes, Branch infusion 2 ONCE, 1 g dose, On Sun11/01/22 at 0645, Routine ceFEPIme 2022- No 1000mg 1,000 mg, U nivers (MAXIPIME) 11-01 IV ity of 1,000 mg in 12:15: 12:45 [place], [place] NaCl 0.9% 00 :00 ONCE, 1 Medical (NS) 50 mL dose, On Branc h MINI-BAG Sun11/01/22 at 0615, Administer over 30 Minutes, 50 mL
Reas on for Anti-Infec tive: Empiric Therapy for Suspected Infection< br>Empiric Therapy Site: Urine
D uration of therapy: 5 days dextrose Yes 250mL 250 mL, IV Un radha 10% (D10W) 18 Infusion, ity of bolus 10:40: PRN - SEE [place] infusion 37 INSTRUCTIO Medic al 250 mL NS, Branch Administer over 60 Minutes, Other, If blood glucose is < or = 70 mg/dL and patient is unable to swallow or has mental status changes, Starting on Sun11/01/22 at 0440
If blood glucose is < or = 70 mg/dL and patient is unable to swallow or has mental status changes (Give glucagon order if patient needs fluid restrictio n): IF IV access available: Dextrose 10%. 1. 125 mL (? bag) of D10W IV infusion - equivalent to 12.5 g dextrose 2. Blood glucose - draw blood glucose 15 minutes after D10W Administra tion. 3. If blood glucose is < 80 mg/dL, repeat.
omeprazole 2022- No 20mg Take 20 mg Univers 20 mg 11-01 by mouth ity of capsule 03:05: 00:00 daily. [place] 33 :00 [facility] omeprazole 2022-2022- No 20mg Take 20 mg Univers 20 mg 11-01 by mouth ity of capsule 03:05: 00:00 daily. [place] 33 :00 [facility] benzonatate 2021-10 Yes [id number] 100mg Take 1 Univers 100 mg 2-30 capsule by ity of capsule 00:00: mouth [place] 00 every 8 Medical (eight) Branch hours as needed for Cough. benzonatate 2021-10- No [id number] 100mg Take 1 Univers 100 mg 2-30 01-20 capsule by ity of capsule 00:00: 00:00 mouth [place] 00 :00 every 8 Medical (eight) Branch hours as needed for Cough. benzonatate 2021-10- No [id number] 100mg Take 1 Univers 100 mg 2-30 01-20 capsule by ity of capsule 00:00: 00:00 mouth [place] 00 :00 every 8 Medical (eight) Branch hours as needed for Cough. Methylpredn 2021-10- Yes [id number] 4mg Take 1 Univers isolone 4 2-30 01-05 tablet by ity of mg tablet 00:00: 05:59 mouth [place] 00 :00 every 12 Medical (twelve) Branch hours for 5 days. Methylpredn 2021-10- No [id number] 4mg Take 1 Univers isolone 4 2-30 -05 tablet by ity of mg tablet 00:00: 05:59 mouth [place] 00 :00 every 12 Medical (twelve) Branch hours for 5 days. ALBUTEROL Yes 2{puff} Inhale 2 U nivers INHALE 3-25 Puffs. ity of 09:25: [address] Branch ALBUTEROL 0 Yes 2{puff} Inhale 2 U nivers INHALE 3-25 Puffs. ity of 09:25: [address] Branch codeine-gua 2- No [id number] 5mL Take 5 mL Univers ifenesin 3-25 04-02 by mouth ity of 10-100 mg/5 00:00: 04:59 every 6 [place] mL oral 00 :00 (six) Medical solution hours as Branch needed for Cough for up to 7 days. Indication s: acute pain omeprazole 2021-0 Yes 20mg Take 20 mg U nivers 20 mg 2-06 by mouth ity of capsule 11:48: daily. [place] [address] Medical Branch lisinopriL 2021-0 Yes 2.5mg Take 2.5 Un radha 2.5 mg 2-06 mg by ity of tablet 11:48: mouth [place] 07 daily. Medical Branch triamterene 2022-0 Yes 1{capsu Take 1 U nivers -hydrochlor [...] by mouth ity of capsule 11:48: daily. 07 Medical Branch lisinopriL 0 Yes 2.5mg Take [...] Medical 2.5-2.5 Branch mcg/actuati on Mist omeprazole 2022-0 Yes 20mg Take 20 mg U nivers 20 mg 2-06 by mouth ity of capsule 11:48: daily. [place] 07 Medical Branch lisinopriL Yes 2.5mg Take 2.5 [...] 2-06 mg by ity of 11:33: mouth. [place] [address] Medical Branch zolpidem Yes 5mg Take 5 mg Univ ers (AMBIEN) 5 2-06 by mouth ity o f mg tablet 11:33: at bedtime [place] 46 as needed Medical for Branch Insomnia. SERTraline Yes 25mg Take 25 mg U nivers (ZOLOFT) 25 2-06 by mouth ity of mg tablet 11:33: daily. [place] [address] Medical Branch aclidinium 0 Yes Inhale. Univ ers bromide 2-06 ity of (TUDORZA 11:33: [place] PRESSAIR) 46 Medical 400 Branch mcg/actuati on aerosol powder ALBUTEROL 2021-0 Yes 2{puff} Inhale 2 U nivers INHALE 2-06 Puffs. ity of 11:33: [address] nitroglycer [address] 0.4 U nivers in 2-06 mg under ity of (NITROSTAT) 11:33: the tongue [place] 0.4 mg 46 as needed Medical sublingual for Chest Bran ch tablet pain. clopidogrel 2021-0 Yes 75mg Take 75 mg Univers (PLAVIX) 75 2-06 by mouth ity of mg tablet 11:33: daily. [address] amLODIPine 0 Yes 5mg Take 5 mg Un radha (NORVASC) 5 2-06 by mouth ity of mg tablet 11:33: daily. [address] theophyllin 0 Yes 300mg Take 300 U nivers e ER 2-06 mg by ity of (MARLENY-DUR) 11:33: mouth [place] 300 mg 12 46 every 12 Medica l hr tablet (twelve) Branch hours. BUPROPION 2021-0 Yes 150mg Take 150 Uni vers HCL ORAL 2-06 mg by ity of 11:33: mouth. [address] zolpidem 0 Yes 5mg Take 5 mg Univ ers (AMBIEN) 5 2-06 by mouth ity o f mg tablet 11:33: at bedtime [place] 46 as needed Medical for Branch Insomnia. SERTraline 2021-0 Yes 25mg Take 25 mg U nivers (ZOLOFT) 25 2-06 by mouth ity of mg tablet 11:33: daily. [address] aclidinium 0 Yes Inhale. Univ ers bromide 2-06 ity of (TUDORZA 11:33: [place] [address] Branch mcg/actuati on aerosol powder nitroglycer [address] 0.4 U nivers in 2-06 mg under ity of (NITROSTAT) 11:33: the tongue [place] 0.4 mg 46 as needed Medical sublingual for Chest Bran ch tablet pain. clopidogrel 2021-0 Yes 75mg Take 75 mg Univers (PLAVIX) 75 2-06 by mouth ity of mg tablet 11:33: daily. [address] amLODIPine 2022-0 Yes 5mg Take 5 mg Un radha (NORVASC) 5 2-06 by mouth ity of mg tablet 11:33: daily. [place] [address] Medical Branch theophyllin 0 Yes 300mg Take 300 U nivers e ER 2-06 mg by ity of (MARLENY-DUR) 11:33: mouth [place] 300 mg 12 46 every 12 Medica l hr tablet (twelve) Branch hours. BUPROPION 0 Yes 150mg Take 150 Uni vers HCL ORAL 2-06 mg by ity of 11:33: mouth. [address] Branch zolpidem 0 Yes 5mg Take 5 mg Univ ers (AMBIEN) 5 2-06 by mouth ity o f mg tablet 11:33: at bedtime [place] 46 as needed Medical for Branch Insomnia. SERTraline 0 Yes 25mg Take 25 mg U nivers (ZOLOFT) 25 2-06 by mouth ity of mg tablet 11:33: daily. [address] Branch aclidinium Yes Inhale. Univ ers [...] mouth ity of mg tablet 11:33: daily. [address] Branch amLODIPine 0 Yes 5mg Take 5 mg Un radha (NORVASC) 5 2-06 by mouth ity of mg tablet 11:33: daily. [place] [address] Medical Branch atorvastati 0 Yes 20mg Take 20 mg Univers n (LIPITOR) 2-06 by mouth ity of 20 mg 11:30: at [place] tablet 24 bedtime. Medical Branch atorvastati 0 Yes 20mg Take 20 mg Univers n (LIPITOR) 2-06 by mouth ity of 20 mg 11:30: at [place] tablet 24 bedtime. Medical Branch atorvastati 0 Yes 20mg Take 20 mg Univers n (LIPITOR) 2-06 by mouth ity of 20 mg 11:30: at [place] tablet 24 bedtime. Medical Branch metFORMIN 2020- Yes TAKE ONE Univ ers 1,000 mg 8-05 TABLET BY ity of tablet 00:00: MOUTH [place] 00 TWICE A Medical DAY *FOR Branch DIABETES* metFORMIN 2020-0 Yes TAKE ONE Univ ers 1,000 mg 8-05 TABLET BY ity of tablet 00:00: MOUTH [place] 00 TWICE A Medical DAY *FOR Branch DIABETES* metFORMIN 2020-0 Yes TAKE ONE Univ ers 1,000 mg 8-05 TABLET BY ity of tablet 00:00: MOUTH [place] 00 TWICE A Medical DAY *FOR Branch DIABETES* metFORMIN 2020-0 Yes TAKE ONE Univ ers 1,000 mg 8-05 TABLET BY ity of tablet 00:00: MOUTH [place] 00 TWICE A Medical DAY *FOR Branch DIABETES* metFORMIN 2020- Yes TAKE ONE Univ ers 1,000 mg 8-05 TABLET BY ity of tablet 00:00: MOUTH [place] 00 TWICE A Medical DAY *FOR Branch DIABETES* metFORMIN 2020- Yes TAKE ONE Univ ers 1,000 mg 8-05 TABLET BY ity of tablet 00:00: MOUTH [place] 00 TWICE A Medical DAY *FOR Branch DIABETES* metFORMIN 2020-0 Yes TAKE ONE Univ ers 1,000 mg 8-05 TABLET BY ity of tablet 00:00: MOUTH [place] 00 TWICE A Medical DAY *FOR Branch DIABETES* metFORMIN 2020-0 Yes TAKE ONE Univ ers 1,000 mg 8-05 TABLET BY ity of tablet 00:00: MOUTH [place] 00 TWICE A Medical DAY *FOR Branch DIABETES* metFORMIN 2020-0 Yes TAKE ONE Univ ers 1,000 mg 8-05 TABLET BY ity of tablet 00:00: MOUTH [place] 00 TWICE A Medical DAY *FOR Branch DIABETES* metFORMIN 2020-0 Yes TAKE ONE Univ ers 1,000 mg 8-05 TABLET BY ity of tablet 00:00: MOUTH [place] 00 TWICE A Medical DAY *FOR Branch DIABETES* metFORMIN 2020-0 Yes TAKE ONE Univ ers 1,000 mg 8-05 TABLET BY ity of tablet 00:00: MOUTH [place] 00 TWICE A Medical DAY *FOR Branch DIABETES* metFORMIN 2020-0 Yes TAKE ONE Univ ers 1,000 mg 8-05 TABLET BY ity of tablet 00:00: MOUTH [place] 00 TWICE A Medical DAY *FOR Branch DIABETES* metFORMIN 2020-0 Yes TAKE ONE Univ ers 1,000 mg [...] ity of mg tablet 00:00: every 4 [place] [address] (four) Medical hours as Branch needed for [...] ity of mg tablet 00:00: every 4 [place] [address] (four) Medical hours as Branch needed for [...] ity of mg tablet 00:00: every 4 [place] [address] (four) Medical hours as Branch needed for [...] Pain (scale 1-3) or Pain (scale 7-10). traMADOL 2014-10 Yes 50mg Take 1 Tab Uni vers (ULTRAM) 50 2-29 by mouth ity of mg tablet 00:00: every 4 [place] 00 (four) Medical hours as Branch needed for Pain (scale 1-3) or Pain (scale 7-10). traMADOL 2014-10 Yes 50mg Take 1 Tab Uni vers (ULTRAM) 50 2-29 by mouth ity of mg tablet 00:00: every 4 [place] 00 (four) Medical hours as Branch needed for Pain (scale 1-3) or Pain (scale 7-10). traMADOL 2014-10 Yes 50mg Take 1 Tab Uni vers (ULTRAM) 50 2-29 by mouth ity of mg tablet 00:00: every 4 [place] 00 (four) Medical hours as Branch needed for Pain (scale 1-3) or Pain (scale 7-10). traMADOL 2014-10 Yes 50mg Take 1 Tab Uni vers (ULTRAM) 50 2-29 by mouth ity of mg tablet 00:00: every 4 [place] 00 (four) Medical hours as Branch needed for Pain (scale 1-3) or Pain (scale 7-10). traMADOL 2014-10 Yes 50mg Take 1 Tab Uni vers (ULTRAM) 50 2-29 by mouth ity of mg tablet 00:00: every 4 [place] 00 (four) Medical hours as Branch needed for Pain (scale 1-3) or Pain (scale 7-10). traMADOL 2014-10 Yes 50mg Take 1 Tab Uni vers (ULTRAM) 50 2-29 by mouth ity of mg tablet 00:00: every 4 [place] 00 (four) Medical hours as Branch needed for Pain (scale 1-3) or Pain (scale 7-10). traMADOL 2014-10 Yes 50mg Take 1 Tab Uni vers (ULTRAM) 50 2-29 by mouth ity of mg tablet 00:00: every 4 [place] 00 (four) Medical hours as Branch needed for Pain (scale 1-3) or Pain (scale 7-10). traMADOL 2014-10 Yes 50mg Take 1 Tab Uni vers (ULTRAM) 50 2-29 by mouth ity of mg tablet 00:00: every 4 [place] 00 (four) Medical hours as Branch needed for Pain (scale 1-3) or Pain (scale 7-10). traMADOL 2014-10 Yes 50mg Take 1 Tab Uni vers (ULTRAM) 50 2-29 by mouth ity of mg tablet 00:00: every 4 [place] 00 (four) Medical hours as Branch needed for Pain (scale 1-3) or Pain (scale 7-10). traMADOL 2014-10 Yes 50mg Take 1 Tab Uni vers (ULTRAM) 50 2-29 by mouth ity of mg tablet 00:00: every 4 [place] 00 (four) Medical hours as Branch needed for Pain (scale 1-3) or Pain (scale 7-10). traMADOL 2014-10 Yes 50mg Take 1 Tab Uni vers (ULTRAM) 50 2-29 by mouth ity of mg tablet 00:00: every 4 [place] 00 (four) Medical hours as Branch needed for Pain (scale 1-3) or Pain (scale 7-10). tamsulosin 2014-10- No .4mg Take 1 Cap Univers (FLOMAX) - by mouth ity of 0.4 mg 24 00:00: 00:00 daily. [place] hr capsule 00 :00 Medical Branch phenazopyri 2014-10- No 100mg Take 1 Tab Univers dine 11-03 by mouth 3 ity of (PYRIDIUM) 00:00: 00:00 (three) [place] 100 mg 00 :00 times Medical tablet daily as Branch needed (Bladder Pain). tamsulosin 2014-10- No .4mg Take 1 Cap Univers (FLOMAX) - by mouth ity of 0.4 mg 24 00:00: 00:00 daily. [place] hr capsule 00 :00 Medical Branch phenazopyri 2014-10- No 100mg Take 1 Tab Univers dine -20 by mouth 3 ity of (PYRIDIUM) 00:00: 00:00 (three) [place] 100 mg 00 :00 times Medical tablet daily as Branch needed (Bladder Pain). acetamino 2014-10 Yes 1{tbl} Take 1 Tab Univers [...] ity o f (TYLENOL 00:00: every 4 [place] #3) 300-30 00 (four) Medical mg tablet hours as Branch needed for Pain (scale 1-3) or Pain (scale 4-6). [facility] No 1{tbl} Take 1 Tab Univers en-codeine 0-11 01-20 by mouth ity of (TYLENOL 00:00: 00:00 every 4 [place] #3) 300-30 00 :00 (four) Medical mg tablet hours as Branch needed for Pain (scale 1-3) or Pain (scale 4-6). [facility]- No 1{tbl} Take 1 Tab Univers en-codeine 0-11 01-20 by mouth ity of (TYLENOL 00:00: 00:00 every 4 [place] #3) 300-30 00 :00 (four) Medical mg tablet hours as Branch needed for Pain (scale 1-3) or Pain (scale 4-6). Immunizations Ordered Filled Immunization Date Status Comments [facility] e Immunization Name Name SARS-COV-2 COVID-19 2020-12-16 Completed Unive rsity of PFIZER VACCINE 00:00:00 [facility] SARS-COV-2 COVID-19 2020-12-16 Completed Unive rsity of PFIZER VACCINE 00:00:00 [facility] SARS-COV-2 COVID-19 2020-12-16 Completed Unive rsity of PFIZER VACCINE 00:00:00 [facility] SARS-COV-2 COVID-19 2020-12-16 Completed Unive rsity of PFIZER VACCINE 00:00:[address] [place] [facility] SARS-COV-2 COVID-19 2020-12-16 Completed Unive rsity of PFIZER VACCINE 00:00:00 [facility] SARS-COV-2 COVID-19 2020-12-16 Completed Unive rsity of PFIZER VACCINE 00:00:00 [facility] SARS-COV-2 COVID-19 2020-12-16 Completed Unive rsity of PFIZER VACCINE 00:00:00 [facility] SARS-COV-2 COVID-19 2020-12-16 Completed Unive rsity of PFIZER VACCINE 00:00:00 [facility] SARS-COV-2 COVID-19 2020-12-16 Completed Unive rsity of PFIZER VACCINE 00:00:00 [facility] SARS-COV-2 COVID-19 2020-12-16 Completed Unive rsity of PFIZER VACCINE 00:00:00 [facility] SARS-COV-2 COVID-19 2020-12-16 Completed Unive rsity of PFIZER VACCINE 00:00:00 [facility] SARS-COV-2 COVID-19 2020-12-16 Completed Unive rsity of PFIZER VACCINE 00:00:00 [facility] SARS-COV-2 COVID-19 2020-12-16 Completed Unive rsity of PFIZER VACCINE 00:00:00 [facility] SARS-COV-2 COVID-19 2020-12-16 Completed Unive rsity of PFIZER VACCINE 00:00:00 [facility] SARS-COV-2 COVID-19 2020-12-16 Completed Unive rsity of PFIZER VACCINE 00:00:00 [facility] SARS-COV-2 COVID-19 2020-11-26 Completed Unive rsity of PFIZER VACCINE 00:00:00 [facility] SARS-COV-2 COVID-19 2020-11-26 Completed Unive rsity of PFIZER VACCINE 00:00:00 [facility] SARS-COV-2 COVID-19 2020-11-26 Completed Unive rsity of PFIZER VACCINE 00:00:00 [facility] SARS-COV-2 COVID-19 2020-11-26 Completed Unive rsity of PFIZER VACCINE 00:00:00 [facility] SARS-COV-2 COVID-19 2020-11-26 Completed Unive rsity of PFIZER VACCINE 00:00:00 [facility] SARS-COV-2 COVID-19 2020-11-26 Completed Unive rsity of PFIZER VACCINE 00:00:00 [facility] SARS-COV-2 COVID-19 2020-11-26 Completed Unive rsity of PFIZER VACCINE 00:00:00 [facility] SARS-COV-2 COVID-19 2020-11-26 Completed Unive rsity of PFIZER VACCINE 00:00:00 [facility] SARS-COV-2 COVID-19 2020-11-26 Completed Unive rsity of PFIZER VACCINE 00:00:00 [facility] SARS-COV-2 COVID-19 2020-11-26 Completed Unive rsity of PFIZER VACCINE 00:00:00 [facility] SARS-COV-2 COVID-19 2020-11-26 Completed Unive rsity of PFIZER VACCINE 00:00:00 [facility] SARS-COV-2 COVID-19 2020-11-26 Completed Unive rsity of PFIZER VACCINE 00:00:00 [facility] SARS-COV-2 COVID-19 2020-11-26 Completed Unive rsity of PFIZER VACCINE 00:00:00 [facility] SARS-COV-2 COVID-19 2020-11-26 Completed Unive rsity of PFIZER VACCINE 00:00:00 [facility] SARS-COV-2 COVID-19 2020-11-26 Completed Unive rsity of PFIZER VACCINE 00:00:00 [facility] Vital Signs Vital Name Observation Time Observation Value Comments Source Systolic blood 2022-12-08 08:30:00 120 mm[Hg] Univer sity of pressure [facility] Diastolic blood 2022-12-08 08:30:00 81 mm[Hg] Unive rsity of pressure [facility] Heart rate 2022-12-08 08:30:00 123 /min [facility] Body temperature 2022-12-08 08:30:00 36.72 Lesa Univ ersity of [facility] Respiratory rate 2022-12-08 08:30:00 18 /min Univ ers[facility] Oxygen saturation in 2022-12-08 08:30:00 96 /min University of Arterial blood by [place] [facility] bianka Pulse oximetry Branch Body height 2022-12-08 01:22:00 157.5 cm [facility] Body weight 2022-12-08 01:22:00 68.04 kg [facility] BMI 2022-12-08 01:22:00 27.44 kg/m2 [facility] Systolic blood 2022-12-07 19:45:00 120 mm[Hg] Univer sity of pressure [facility] Diastolic blood 2022-12-07 19:45:00 75 mm[Hg] Unive rsity of pressure [facility] Heart rate 2022-12-07 19:45:00 98 /min [facility] Respiratory rate 2022-12-07 19:45:00 15 /min Univ [facility] Oxygen saturation in 2022-12-07 19:45:00 100 /min University of Arterial blood by [place] bianka Pulse oximetry Branch Body temperature 2022-12-07 17:28:00 35.83 Lesa [facility] Systolic blood 2022-11-30 19:07:00 108 mm[Hg] Univer sity of pressure [facility] Diastolic blood 2022-11-30 19:07:00 75 mm[Hg] Unive rsity of pressure [facility] Heart rate 2022-11-30 19:07:00 119 /min [facility] Body temperature 2022-11-30 19:07:00 35.56 Lesa [facility] Respiratory rate 2022-11-30 19:07:00 20 /min Univ [facility] Body height 2022-11-30 19:07:00 157.5 cm [facility] Body weight 2022-11-30 19:07:00 68.13 kg [facility] BMI 2022-11-30 19:07:00 27.47 kg/m2 [facility] Oxygen saturation in 2022-11-30 19:07:00 100 /min University of Arterial blood by [place] bianka Pulse oximetry Branch Systolic blood 2022-11-03 21:01:00 121 mm[Hg] Univer sity of pressure [facility] Diastolic blood 2022-11-03 21:01:00 87 mm[Hg] Unive rsity of pressure [facility] Heart rate 2022-11-03 21:01:00 119 /min [facility] Oxygen saturation in 2022-11-03 21:01:00 94 /min University of Arterial blood by [place] Pulse oximetry Branch Body temperature 2022-11-03 20:55:00 36.39 Lesa [facility] Respiratory rate 2022-11-03 20:55:00 18 /min [facility] Body weight 2022-11-01 10:21:00 72.4 kg [facility] BMI 2022-11-01 10:21:00 29.19 kg/m2 [facility] Systolic blood 2022-10-13 16:44:00 129 mm[Hg] Univer sity of pressure [place] [facility] Diastolic blood 2022-10-13 16:44:00 79 mm[Hg] Unive rsity of pressure [facility] Heart rate 2022-10-13 16:44:00 126 /min [facility] Body temperature 2022-10-13 16:44:00 36.72 Lesa [facility] [place] [facility] Respiratory rate 2022-10-13 16:44:00 20 /min Univ [facility] [place] [facility] Body height 2022-10-13 16:44:00 157.5 cm [facility] Body weight 2022-10-13 16:44:00 72.394 kg [facility] BMI 2022-10-13 16:44:00 29.19 kg/m2 [facility] Oxygen saturation in 2022-10-13 16:44:00 95 /min University of Arterial blood by [facility] bianka Pulse oximetry Branch Heart rate 2022-01-06 14:26:00 124 /min [facility] Systolic blood 2022-01-06 14:22:00 122 mm[Hg] Univer sity of pressure [facility] Diastolic blood 2022-01-06 14:22:00 81 mm[Hg] Unive rsity of pressure [place] [facility] Body temperature 2022-01-06 14:22:00 36.94 Lesa [facility] Respiratory rate 2022-01-06 14:22:00 18 /min [facility] Body height 2022-01-06 14:22:00 157.5 cm [facility] Body weight 2022-01-06 14:22:00 67.813 kg [facility] BMI 2022-01-06 14:22:00 27.34 kg/m2 [facility] Oxygen saturation in 2022-01-06 14:22:00 95 /min [place] of Arterial blood by [facility] Pulse oximetry Branch Heart rate 2022-11-03 17:21:00 120 /min [facility] Respiratory rate 2022-11-03 17:21:00 18 /min [facility] Oxygen saturation in 2022-11-03 17:21:00 95 /min [place] of Arterial blood by [facility] Pulse oximetry Branch Systolic blood 2022-11-03 17:10:00 146 mm[Hg] [facility] Di[facility] blood 2022-11-03 17:10:00 90 mm[Hg] [facility] Body temperature 2022-11-03 17:10:00 36.39 Lesa [facility] Body weight 2022-11-01 10:21:00 72.4 kg [facility] BMI 2022-11-01 10:21:00 29.19 kg/m2 [facility] Body height 2022-10-13 16:44:00 157.5 cm [facility] Procedures Procedure Date / Time Performing Clinician Source Performed CT ABDOMEN PELVIS WO 2022-12-08 06:01:00 Dominic [facility] BAS[facility] METABOLIC PANEL 2022-12-08 03:49:00 Dominic Ellington [facility] (NA, K, CL, CO2, GLUCOSE, Medica l Branch BUN, CREATININE, CA) CBC WITH DIFF 2022-12-08 03:49:00 Dominic Ellington [facility] CONSENT/REFUSAL FOR 2022-12-08 01:14:16 Doctor Unassigned, [facility] DIAGNOSIS AND TREATMENT [facility] ASSIGNMENT OF BENEFITS 2022-11-21 14:14:25 Doctor [facility]ass[facility], [facility] [place] [facility] CONSENT/REFUSAL FOR 2022-11-09 19:26:01 Doctor Unassigned, [facility] DIAGNOSIS AND TREATMENT [facility] ASSIGNMENT OF BENEFITS 2022-11-09 19:25:42 Doctor Unassigned, [facility] [place] [facility] POCT GLUCOSE (AUTOMATED) 2022-11-03 22:54:00 Alfonso Rogers versity of [facility] POCT GLUCOSE (AUTOMATED) 2022-11-03 18:00:00 Alfonso Rogers Uni versity of [facility] POCT GLUCOSE (AUTOMATED) 2022-11-03 18:00:00 Alfonso Rogers versity of [facility] POCT GLUCOSE (AUTOMATED) 2022-11-03 15:15:00 Alfonso Rogers Uni versity [facility] POCT GLUCOSE (AUTOMATED) 2022-11-03 15:15:00 Alfonso Rogers Uni versity [facility] CBC WITH DIFF 2022-11-03 11:29:00 [facility] BASIC METABOLIC PANEL 2022-11-03 11:29:00 [facility] (NA, K, CL, CO2, GLUCOSE, Medica l Branch BUN, CREATININE, CA) MAGNESIUM 2022-11-03 11:29:00 [facility] MAGNESIUM 2022-11-03 11:29:00 [facility] BASIC METABOLIC PANEL 2022-11-03 11:29:00 [facility] (NA, K, CL, CO2, GLUCOSE, Medica l Branch BUN, CREATININE, CA) CBC WITH DIFF 2022-11-03 11:29:00 [facility] POCT GLUCOSE (AUTOMATED) 2022-11-03 06:12:00 Alfonso Rogers versity of [facility] POCT GLUCOSE (AUTOMATED) 2022-11-03 06:12:00 Alfonso Rogers versity [facility] POCT GLUCOSE (AUTOMATED) 2022-11-03 02:54:00 Alfonso Rogers versity of [facility] POCT GLUCOSE (AUTOMATED) 2022-11-03 02:54:00 Alfonso Rogers versity of [facility] POCT GLUCOSE (AUTOMATED) 2022-11-02 23:45:00 Alfonso Rogers versity of [facility] POCT GLUCOSE (AUTOMATED) 2022-11-02 23:45:00 Alfonso Rogers versity of [facility] POCT GLUCOSE (AUTOMATED) 2022-11-02 18:12:00 Alfonso Rogers Uni versity of [facility] POCT GLUCOSE (AUTOMATED) 2022-11-02 18:12:00 Alfonso Rogers versity of [facility] POCT GLUCOSE (AUTOMATED) 2022-11-02 14:06:00 Alfonso Rogers versity of [facility] POCT GLUCOSE (AUTOMATED) 2022-11-02 14:06:00 Alfonso Rogers versity [facility] BASIC METABOLIC PANEL 2022-11-02 11:04:00 Kim [facility] (NA, K, CL, CO2, GLUCOSE, Medica l Branch BUN, CREATININE, CA) CBC WITH DIFF 2022-11-02 11:04:00 Kim [facility] MAGNESIUM 2022-11-02 11:04:00 Kim [facility] MAGNESIUM 2022-11-02 11:04:00 Kim [facility] BASIC METABOLIC PANEL 2022-11-02 11:04:00 Kim [facility] (NA, K, CL, CO2, GLUCOSE, Medica l Branch BUN, CREATININE, CA) CBC WITH DIFF 2022-11-02 11:04:00 Kim [facility] POCT GLUCOSE (AUTOMATED) 2022-11-02 03:11:00 Alfonso Rogers Uni versity of [facility] POCT GLUCOSE (AUTOMATED) 2022-11-02 03:11:00 Alfonso Rogers versity of [facility] POCT GLUCOSE (AUTOMATED) 2022-11-02 01:45:00 Alfonso Rogers [facility] POCT GLUCOSE (AUTOMATED) 2022-11-02 01:45:00 Win Alfonso Kramer [facility] POCT GLUCOSE (AUTOMATED) 2022-11-01 22:43:00 RogersMercyines Nia [facility] POCT GLUCOSE (AUTOMATED) 2022-11-01 22:43:00 Win Alfonso Kramer [facility] CT ABDOMEN PELVIS WO 2022-11-01 17:10:25 Ronal Pagan [facility] CT ABDOMEN PELVIS WO 2022-11-01 17:10:25 Ronal Pagan [facility] BASIC METABOLIC PANEL 2022-11-01 16:34:00 Alon Alvarez [facility] (NA, K, CL, CO2, GLUCOSE, Medica l Branch BUN, CREATININE, CA) PROTHROMBIN TIME / INR 2022-11-01 16:34:00 Alon Alvarez [facility] BASIC METABOLIC PANEL 2022-11-01 16:34:00 Alon Alvarez [facility] (NA, K, CL, CO2, GLUCOSE, Medica l Branch BUN, CREATININE, CA) PROTHROMBIN TIME / INR 2022-11-01 16:34:00 Alon Alvarez [facility] XR CHEST 1 VW 2022-11-01 15:26:[address] [facility] XR CHEST 1 VW 2022-11-01 15:26:[address] [facility] CT HEAD WO CONTRAST 2022-11-01 15:26:04 Vickie Ceja [facility] CT HEAD WO CONTRAST 2022-11-01 15:26:04 Vickie Ceja [facility] CT ANGIOGRAM CHEST 2022-11-01 15:25:[facility] 2022-11-01 15:25:44 Marcial [facility] POCT GLUCOSE (AUTOMATED) 2022-11-01 15:24:00 Alfonso Rogers [facility] POCT GLUCOSE (AUTOMATED) 2022-11-01 15:24:00 Alfonso Rogers [facility] MRSA / MSSA SCREEN BY 2022-11-01 11:01:00 Vickie Ceja [facility] PCR, NARES [facility] BASIC METABOLIC PANEL 2022-11-01 11:01:00 Vickie Ceja [facility] (NA, K, CL, CO2, GLUCOSE, Luis Alfredo Medica l Branch BUN, CREATININE, CA) MAGNESIUM 2022-11-01 11:01:[address] [facility] HEPATIC FUNCTION PANEL 2022-11-01 11:01:00 Vickie Ceja [facility] ([id number]) (ALB,T.PRO,BILI [facility] T,BU/BC,ALT,AST,ALK PHOS) URINE CULTURE 2022-11-01 11:01:[address] [facility] BLOOD CULTURE SCREEN 2022-11-01 11:01:00 Vickie Ceja [facility] CBC WITH DIFF 2022-11-01 11:01:[address] [facility] URINALYSIS 2022-11-01 11:01:[address] [facility] URIC ACID 2022-11-01 11:01:[address] [facility] PHOSPHORUS 2022-11-01 11:01:[address] [facility] GLYCOSYLATED HEMOGLOBIN 2022-11-01 11:01:00 Vickie Ceja [facility] (A1C) [facility] BLOOD CULTURE SCREEN 2022-11-01 11:01:00 Vickie Ceja [facility] PHOSPHORUS 2022-11-01 11:01:[address] [facility] URIC ACID 2022-11-01 11:01:[address] [facility] MAGNESIUM 2022-11-01 11:01:[address] [facility] HEPATIC FUNCTION PANEL 2022-11-01 11:01:00 Vickie Ceja [facility] ([id number]) (ALB,T.PRO,BILI [facility] T,BU/BC,ALT,AST,ALK PHOS) BASIC METABOLIC PANEL 2022-11-01 11:01:00 Vickie Ceja [facility] (NA, K, CL, CO2, GLUCOSE, Luis Alfredo Medica l Branch BUN, CREATININE, CA) CBC WITH DIFF 2022-11-01 11:01:[address] [facility] GLYCOSYLATED HEMOGLOBIN 2022-11-01 11:01:00 Vickie Ceja [facility] (A1C) [facility] URINALYSIS 2022-11-01 11:01:[address] [facility] URINE CULTURE 2022-11-01 11:01:[address] [facility] MRSA / MSSA SCREEN BY 2022-11-01 11:01:00 Vickie Ceja [facility] JESUS COLEMAN [facility] POCT SARS-COV-2 ANTIGEN 2022-10-13 16:52:00 Jannette Caal [facility] ([facility] POCT SARS-COV-2 ANTIGEN 2022-10-13 16:52:00 [facility] ([facility]) [facility] POCT MOLECULAR FLU 2022-10-13 16:46:00 Unknown, Attending [facility] POCT MOLECULAR STREP 2022-10-13 16:42:00 Unknown, Attending [facility] POCT MOLECULAR FLU 2022-01-06 14:33:00 Unknown, Attending [facility] POCT MOLECULAR STREP 2022-01-06 14:31:00 Unknown, Attending [facility] COVID-19 (MOLECULAR 2021-11-24 16:17:00 Jannette Caal [facility] TESTING Medical Branch NUCLEIC ACID AMPLIFICATION) LAB ONLY COVID 2021-11-24 16:17:00 Jannette Caal o f [place] INTERPRETATION [facility] Plan of Care Planned Activity Planned Date Details Comments Source Future Scheduled 2022-10-[address] [facility] 00:00:00 (12+) [code = Medical Center DEPRESSION SCREENING (12+)] Future Scheduled 2022-10-15 FALLS RISK SCREENING [facility] 00:00:00 [code = FALLS RISK Medical C enter SCREENING] Future Scheduled 2022 PNEUMOCOCCAL 65+ YRS ([address] [facility] Test 00:00:00 - PCV) [code = Medical Cente r PNEUMOCOCCAL 65+ YRS (1 - PCV)] Future Scheduled 2022-06-15 INFLUENZA VACCINE (#1) [facility] 00:00:00 [code = INFLUENZA Medical Ce nter VACCINE (#1)] Future Scheduled 2007 SHINGLES VACCINES ([address] [facility] 00:00:00 2) [code = SHINGLES Medical Center VACCINES (1 of 2)] Future Scheduled 2002 Lipid panel (procedure) [facility] Test 00:00:00 [code = 25251092] Medical Ce nter Future Scheduled 1978 Screening for malignant [facility] Test 00:00:00 neoplasm of cervix Medical C enter (procedure) [code = 622327804] Future Scheduled 1976 DTAP/TDAP/TD VACCINES [facility] 00:00:00 (1 - Tdap) [code = Medical C enter DTAP/TDAP/TD VACCINES (1 - Tdap)] Future Scheduled 1975 HEPATITIS C SCREENING [facility] 00:00:00 [code = HEPATITIS C Medical Center SCREENING] Future Scheduled [address] [facility] Test 00:00:00 Counseling and Medical Cente r Screening (12+) [code = Tobacco Cessation Counseling and Screening (12+)] Future Scheduled 1958-03-22 COVID-19 VACCINE (#1) [facility] 00:00:00 [code = COVID-[address] VACCINE (#1)] Future Scheduled 1957 Screening for malignant [facility] Test 00:00:00 neoplasm of colon Medical Ce nter (procedure) [code = 346165921] Future Scheduled 1957 Sigmoidoscopy [code = [facility] 00:00:00 Sigmoidoscopy] Medical Cente r Future Scheduled 1957 Screening for malignant [facility] Test 00:00:00 neoplasm of breast Medical C enter (procedure) [code = 106725381] Future Scheduled 1957 CT Colonography (combo) [facility] Test 00:00:00 [code = CT Colonography [facility] (combo)] Future Scheduled 1957 Screening for malignant [facility] Test 00:00:00 neoplasm of colon Medical Ce nter (procedure) [code = 324158906] Future Scheduled 1957 Screening for malignant [facility] Test 00:00:00 neoplasm of colon Medical Ce nter (procedure) [code = 261292947] Future Scheduled 1957 DXA SCAN [code = DXA [facility] Test 00:00:00 SCAN] [facility] Future Scheduled 1957 Screening for malignant [facility] Test 00:00:00 neoplasm of colon Medical Ce nter (procedure) [code = 483859651] Encounters Start End Encounter Admission Attending Care Care Encounter Source Date/Time Date/Time Type Type Clinicians Facility Department ID 2022-10-31 [facility] [id number] C [facility] 00:00:00 Encounter [facility] 2022-12-07 2022-12-08 Emergency X [facility] ERT [id number] Univers 19:25:00 02:38:00 DOMINIC ortiz [facility] 2022-12-07 2022-12-08 Emergency [facility] [id number] Univers 19:25:00 02:38:00 Dominic Flores ROCKLIN [id number] itlolis [facility] [id number] [facility] [id number] [place] [address] Branch 2022-12-07 2022-12-07 Outpatient R [facility] [id number] Univers 10:52:39 19:24:00 NAYELI ity of [facility] 2022-12-07 2022-12-07 Hospital TAMARA ThompsonIT [id number] Univers 10:52:39 19:24:00 [facility] [id number] [facility] of [facility] [id number] [id number] [facility] [address] 2022-11-30 2022-11-30 [facility] [id number] Univers 10:30:00 11:59:17 GILMA ity o f [facility] 2022-11-30 2022-11-30 Office [facility] [id number] Univers 10:30:00 11:59:17 Visit Gilma HUMPHRIES [id number] [id number] [id number] In dical [facility] [address] Branch [facility] 2022-11-29 2022-11-29 Nurse BRIT Patel [id number] Univers 00:00:00 00:00:00 Triage Chino HERNANDEZ [id number] ity of [facility] [id number] [place] [id number] [facility] 019 Branch 2022-11-21 2022-11-21 [facility] [id number] Univers 08:30:00 08:58:27 NAYELI ity of [facility] 2022-11-21 2022-11-21 Orders Doctor PEREA [id number] Univers 00:00:00 00:00:00 Only Unassigned, MARY [id number] ity [place] [facility] [id number] [place] as [id number] [facility] 009 Branch 2022-11-16 2022-11-16 [facility] [id number] Univers 15:30:00 16:12:27 DINO ity [facility] 2022-11-14 2022-11-14 Telephone GuerreroRUST [id number] Univers 00:00:00 00:00:00 Germaine HUMPHRIES [id number] ity of [place] [id number] In dical NAL [address] Branch [facility] 2022-11-10 2022-11-10 Outpatient R GERMAINE [facility] [id number] Univers 14:00:00 14:00:00 GUERRERO, GERMAINE [facility] 2022-11-09 2022-11-09 Outpatient R [facility]O [facility] [id number] Univers 13:27:20 23:59:00 NIELS ortiz [facility] 2022-11-09 2022-11-09 [facility] [id number] Univers 13:25:00 23:59:00 Encounter Niels MOYKALE [id number] [id number] [id number] [facility] [address] 2022-11-08 2022-11-08 Outpatient R JAY [facility] [id number] Univers 11:30:00 11:30:00 NAYELI ity [facility] 2022-11-06 2022-11-06 Transition SOMMER Bustillo [id number] Univers 00:00:00 00:00:00 of Care Kadie CAPELLANY [id number] [id number] [id number] [facility] [address] Branch 2022-11-05 2022-11-05 Telephone JayRUST [id number] Univers 00:00:00 00:00:00 Nayeli ANGLEKALE [id number] i ty of [facility] [id number] [id number] In dical NAL [address] [facility] 2022-11-01 2022-11-03 Inpatient U [facility] [id number] Univers 04:10:00 18:38:00 NIELS ity [facility] 2022-11-01 2022-11-03 [facility] Alfonso Rogers 1.2.840.114 [id number] Univers 04:10:00 18:38:00 Encounter Niels Trujillo 350.1.13.10 ity of HOSPITAL 4.2.7.2.686 [place] as [id number] [facility] bianka [address] [place] 2022-10-13 2022-10-13 Urgent Jannette Caal 1.2.840.1 [id number] Univers 12:20:00 12:20:00 Bautista Lynn 67208.1.1 ity of 3.104.2.7 [place] .3.794133 Medica l .[address] [place] 2022-10-13 2022-10-13 Outpatient R DERRICK III, [facility] [id number] Univers 12:20:00 11:07:44 BAUTISTA ity [facility] 2022-10-13 2022-10-13 Outpatient R [facility] [id number] Univers 11:00:00 11:00:00 ity [facility] 2022-10-13 2022-10-13 Laboratory Unknown, Attending 1.2.840.1 10 [id number] Univers 10:30:00 10:45:00 Only Only, Ang Db Test 82306.1.1 ity of 3.104.2.7 [place] .3.484886 Medica l .8 [place] 2022-10-13 2022-10-13 Outpatient R UNKNOWN, [facility] [id number] Univers 10:30:00 10:30:00 ATTENDING ity [facility] 2022-10-13 2022-10-13 Travel 1.2.840.1 1.2.531.594 [id number] Univers 00:00:00 00:00:00 94264.1.1 350.1.13.10 ity of 3.104.2.[place].3.698 [place] .3.8620[place] 084.8 Medica l .8 [place] 2022-01-06 2022-01-06 Urgent Joyce Moses [facility] 1.2.840.114 [id number] Univers 09:20:00 09:40:00 Care Unknown, [facility] 350.1.13.10 ity of [place] 4.2.7.2.686 Sky as HANDY?BLEA [id number] [address] OFFICE [facility] 2022-01-06 2022-01-06 [facility] [id number] Univers 09:20:00 09:20:00 JOYCE [facility] 2021-11-25 2021-11-25 Letter BRIT Roberts 1.2.840.114 [id number] Univers 00:00:00 00:00:00 (Out) Tammy HERNANDEZ 350.1.13.10 it y of [facility] 4.2.7.2.686 [place] [id number] [address] 2021-11-24 2021-11-24 Laboratory Only, Ang Db Test [facility] 1.2.8 40.114 [id number] Univers 10:15:00 10:18:[address] [facility] 350.1.13.10 ity [facility] 4.2.7.2.686 [place] HANDY?BLEA [id number] [address] 2021-11-24 2021-11-24 Outpatient R KING YIN [facility] [id number] Univers 10:15:00 10:15:00 BAUTISTA [facility] 2021-11-21 2021-11-21 BRIT Logan 1.2.840.114 [id number] Univers 00:00:00 00:00:00 (Out) Tammy HERNANDEZ 350.1.13.10 it y of [facility]7.2.686 [place] as [id number] [address] 2021-11-20 2021-11-20 Outpatient Nghia MOSES [facility] [id number] Univers 11:54:19 23:59:00 JOYCE [facility] 2021-11-20 2021-11-20 [facility] [id number] Univers 11:54:19 23:59:00 [facility]CE [facility] 2021-11-20 2021-11-20 Hospital [facility] 1.2.840.114 [id number] Univers 11:54:19 23:59:00 Encounter Joyce [facility] 350.1.13.10 ity [facility] 4.2.7.2.686 [place] as HANDY?BLEA [id number] [facility] [address] [place] MEDICAL OFFICE [facility] 2021-11-20 2021-11-20 Urgent [facility] 1.2.840.114 [id number] Univers 11:20:00 11:59:09 Care Joyce HEALTH 350.1.13.10 it y of [place] 4.2.7.2.686 [place] as HANDY?BLEA [id number] In dicariel [facility] [address] [place] MEDICAL OFFICE [facility] 2021-11-20 2021-11-20 Orders Doctor BRIT 1.2.840.114 [id number] Univers 00:00:00 00:00:00 Only Unassigned, MARY 350.1.13.10 ity of [place] [facility] 4.2.7.2.686 Sky as [id number] [address] 2020-12-16 2020-12-16 Outpatient Nghia STRINGER, [facility] [id number] Univers 17:30:00 17:12:32 KIANA [facility] Results Test Description Test Time Test Comments Results Result Comments Source POCT GLUCOSE (AUTOMATED) 2022-11-03 22:55:37 Test Item Value Reference Range Interpretation Comme nts POCT GLU (test code = 2978609216) 233 mg/dL 70-110 H Lab Interpretation (test code = 69662-5) Abnormal [facility] GLUCOSE (AUTOMATED)2022-11-03 18:01:39 Test Item Value Reference Range Interpretation Comments POCT GLU (test code = 7913716869) 215 mg/dL 70-110 H Lab Interpretation (test code = Abnormal 85635-9) [facility] GLUCOSE (AUTOMATED)2022-11-03 18:01:39 Test Item Value Reference Range Interpretation Comments POCT GLU (test code = 7769047830) 215 mg/dL 70-110 H Lab Interpretation (test code = Abnormal 13142-6) [facility] GLUCOSE (AUTOMATED)2022-11-03 15:16:58 Test Item Value Reference Range Interpretation Comments POCT GLU (test code = 7648182164) 229 mg/dL 70-110 H Lab Interpretation (test code = Abnormal 27260-4) [facility] GLUCOSE (AUTOMATED)2022-11-03 06:13:48 Test Item Value Reference Range Interpretation Comments POCT GLU (test code = 6978473919) 197 mg/dL 70-110 H Lab Interpretation (test code = Abnormal 64171-3) [facility] GLUCOSE (AUTOMATED)2022-11-03 02:56:26 Test Item Value Reference Range Interpretation Comments POCT GLU (test code = 5311076209) 310 mg/dL 70-110 H Lab Interpretation (test code = Abnormal 96204-2) [facility] GLUCOSE (AUTOMATED)2022-11-02 23:47:04 Test Item Value Reference Range Interpretation Comments POCT GLU (test code = 5065586354) 243 mg/dL 70-110 H Lab Interpretation (test code = Abnormal 48985-0) [facility] GLUCOSE (AUTOMATED)2022-11-02 18:14:39 Test Item Value Reference Range Interpretation Comments POCT GLU (test code = 2322814669) 318 mg/dL 70-110 H Lab Interpretation (test code = Abnormal 86602-6) [facility] GLUCOSE (AUTOMATED)2022-11-02 14:08:23 Test Item Value Reference Range Interpretation Comments POCT GLU (test code = 0534808077) 209 mg/dL 70-110 H Lab Interpretation (test code = Abnormal 30511-3) [facility] METABOLIC PANEL (NA, K, CL, CO2, GLUCOSE, BUN, CREATININE, CA)2022-11-02 12:42:38 Test Item Value Reference Range Interpretation Comments NA (test code = 137 mmol/L 135-145 1652498183) K (test code = 3.6 mmol/L 3.5-5.0 4647947718) CL (test code = 104 mmol/L 98-108 6570577903) CO2 TOTAL (test code = 29 mmol/L 23-31 6555627359) AGAP (test code = 2-16 0888159269) BUN (test code = 16 mg/dL 7-23 0289762885) GLUCOSE (test code = 181 mg/dL 70-110 H 8200265275) CREATININE (test code = 0.58 mg/dL 0.50-1.04 2718977042) CALCIUM (test code = 9.3 mg/dL 8.6-10.6 9705283732) eGFR (test code = mL/min/1.73m2 2016993263) CHRISTINE (test code = CHRISTINE) Association of Glomerular Filtration Rate (GFR) and Staging of Kidney Disease* + --+ --+ ------+| GFR (mL/min/1.73 m2) ?| With Kidney Damage ?| ?Without Kidney Damage+ --------+ --------+ +| ?>90 ?| ?Stage one ?| ? Normal ?+ ---+ ---+ -------+| ?60-89 ?| ?Stage two ?| ? Decreased GFR ? + --+ --+ ------+| ?30-59 ?| ?Stage three ?| ? Stage three ? + --+ --+ ------+| ?15-29 ?| ?Stage four ? | ? Stage four ?+ ---+ ---+ -------+| ?<15 (or dialysis) ? ?| ?Stage five ? | ? Stage five ?+ ---+ ---+ -------+ *Each stage assumes the associated GFR level has been in effect for at least three months. ?Stages 1 to 5, with or without kidney disease, indicate chronic kidney disease. Notes: Determination of stages one and two (with eGFR >59mL/min/1.73 m2) requires estimation of kidney damage for at least three months as defined by structural or functional abnormalities of the kidney, manifested by either:Pathological abnormalities or Markers of kidney damage (including abnormalities in the composition of the blood or urine or abnormalities in imaging tests). Lab Interpretation Abnormal (test code = 05520-7) [facility] [place] [facility] 12:42:38 Test Item Value Reference Range Interpretation Comments MAGNESIUM (test code = 9349977619) 1.6 mg/dL 1.7-2.4 L Lab Interpretation (test code = Abnormal 15761-7) [facility] WITH [id number] 11:26:08 Test Item Value Reference Range Interpretation Comments WBC (test code = See_Comment H [Automated 6690-2) message] The system which generated this result transmit sonido reference range : 4.30 - 11.10 10*3/?L. The reference range was not used to interpret this result as normal/abnormal . RBC (test code = See_Comment L [Automated 789-8) message] The system which generated this result transmit sonido reference range : 3.93 - 5.25 10*6/?L. The reference range was not used to interpret this result as normal/abnormal . HGB (test code = 11.9 g/dL 11.6-15.0 718-7) HCT (test code = 35.0 % 35.7-45.2 L 4544-3) MCV (test code = 93.8 fL 80.6-95.5 787-2) MCH (test code = 31.9 pg 25.9-32.8 785-6) MCHC (test code = 34.0 g/dL 31.6-35.1 786-4) RDW-SD (test code = 45.6 fL 39.0-49.9 99492-8) RDW-CV (test code = 13.2 % 12.0-15.5 788-0) PLT (test code = See_Comment [Automated 777-3) message] The system which generated this result transmit sonido reference range : 166 - 358 10*3/ ?L. The reference range was not u sed to interpret th is result as normal/abnormal . MPV (test code = 10.2 fL 9.5-12.9 63416-3) NRBC/100 WBC (test See_Comment [Automat ed code = 3272751980) message] The system which generated this result transmit sonido reference range : 0.0 - 10.0 /100 WBCs. The reference range was not used to interpret this result as normal/abnormal . NRBC x10^3 (test code See_Comment [Auto mated = 2845661777) message] The system which generated this result transmit sonido reference range : 10*3/?L. The reference range was not used to interpret this result as normal/abnormal . GRAN MAT (NEUT) % 83.4 % (test code = 770-8) IMM GRAN % (test code 0.60 % = 7241099415) LYMPH % (test code = 5.8 % 736-9) MONO % (test code = 9.7 % 5905-5) EOS % (test code = 0.3 % 713-8) BASO % (test code = 0.2 % 706-2) GRAN MAT x10^3(ANC) 10.83 10*3/uL 1.88-7.09 H (test code = 8017766181) IMM GRAN x10^3 (test 0.08 10*3/uL 0.00-0.06 H code = 0639634235) LYMPH x10^3 (test code 0.75 10*3/uL 1.32-3.29 L = 731-0) MONO x10^3 (test code 1.26 10*3/uL 0.33-0.92 H = 742-7) EOS x10^3 (test code = 0.04 10*3/uL 0.03-0.39 711-2) BASO x10^3 (test code 0.03 10*3/uL 0.01-0.07 = 704-7) Lab Interpretation Abnormal (test code = 76606-0) [facility] GLUCOSE (AUTOMATED)2022-11-02 03:16:22 Test Item Value Reference Range Interpretation Comments POCT GLU (test code = 3464523463) 196 mg/dL 70-110 H Lab Interpretation (test code = Abnormal 40783-9) [facility] GLUCOSE (AUTOMATED)2022-11-02 01:55:06 Test Item Value Reference Range Interpretation Comments POCT GLU (test code = 5815560402) 227 mg/dL 70-110 H Lab Interpretation (test code = Abnormal 86206-9) [facility] GLUCOSE (AUTOMATED)2022-11-01 22:55:29 Test Item Value Reference Range Interpretation Comments POCT GLU (test code = 3113214042) 199 mg/dL 70-110 H Lab Interpretation (test code = Abnormal 43256-1) [facility] GLUCOSE (AUTOMATED)2022-11-01 15:42:13 Test Item Value Reference Range Interpretation Comments POCT GLU (test code = 8545500218) 367 mg/dL 70-110 H Lab Interpretation (test code = Abnormal 27705-1) [facility] [place] [facility]GLOB[facility] (A1C)2022-11-01 15:11:16 Test Item Value Reference Range Interpretation Comments HGB A1C (test code = 9.5 % 4.0-5.7 H 4548-4) CHRISTINE (test code = CHRISTINE) Reference RangesNormal: <5.7%Prediabetes: 5.7 - 6.4%Diabetes: > 6.5% Lab Interpretation (test Abnormal code = 17269-8) [facility] [place] [facility]GLOB[facility] (A1C)2022-11-01 15:11:16 Test Item Value Reference Range Interpretation Comments HGB A1C (test code = 9.5 % 4.0-5.7 H 4548-4) CHRISTINE (test code = CHRISTINE) Reference RangesNormal: <5.7%Prediabetes: 5.7 - 6.4%Diabetes: > 6.5% Lab Interpretation (test Abnormal code = 29868-5) [facility] [place] [facility] CampusPhosphorus [id number] 11:51:33 Test Item Value Reference Range Interpretation Comments PHOSPHORUS (test code = 5928564527) 3.2 mg/dL 2.5-5.0 Lab Interpretation (test code = Normal 64061-1) [facility] [place] [facility] CampusURIC [id number] 11:51:33 Test Item Value Reference Range Interpretation Comments URIC ACID (test code = 2930523680) 6.2 mg/dL 2.9-6.0 H Lab Interpretation (test code = Abnormal 90533-2) [facility] CampusHepatic Function Panel (ALB, T.PRO, BILI T, BU/BC, ALT, AST, ALK, PHOS)2022-11-01 11:51:33 Test Item Value Reference Range Interpretation Comments TOTAL BILI (test code = 6135838311) 0.6 mg/dL 0.1-1.1 BILI UNCON (test code = 3489345700) 0.1 mg/dL 0.1-1.1 BILI CONJ (test code = 4400684473) 0.0 mg/dL 0.0-0.3 T PROTEIN (test code = 3151502197) 5.9 g/dL 6.3-8.2 L ALBUMIN (test code = 5432312028) 3.8 g/dL 3.5-5.0 ALK PHOS (test code = 1763015715) 83 U/L 34-122 ALTv (test code = 1742-6) 27 U/L 5-35 AST(SGOT) (test code = 0366577518) 26 U/L 13-40 Lab Interpretation (test code = Abnormal 58242-4) [facility] Metabolic Panel (NA, K, CL, CO2, Glucose, BUN, Creatinine, CA)2022-11-01 11:51:33 Test Item Value Reference Range Interpretation Comments NA (test code = 139 mmol/L 135-145 3318907341) K (test code = 3.8 mmol/L 3.5-5.0 7446982187) CL (test code = 108 mmol/L 98-108 1440517774) CO2 TOTAL (test code = 21 mmol/L 23-31 L 2698275697) AGAP (test code = 2-16 0924318123) BUN (test code = 16 mg/dL 7-23 8977583987) GLUCOSE (test code = 370 mg/dL 70-110 H 9526504185) CREATININE (test code = 0.75 mg/dL 0.50-1.04 6877683468) CALCIUM (test code = 8.9 mg/dL 8.6-10.6 6637144261) eGFR (test code = mL/min/1.73m2 5633659293) CHRISTINE (test code = CHRISTINE) Association of Glomerular Filtration Rate (GFR) and Staging of Kidney Disease* + --+ --+ ------+| GFR (mL/min/1.73 m2) ?| With Kidney Damage ?| ?Without Kidney Damage+ --------+ --------+ +| ?>90 ?| ?Stage one ?| ? Normal ?+ ---+ ---+ -------+| ?60-89 ?| ?Stage two ?| ? Decreased GFR ? + --+ --+ ------+| ?30-59 ?| ?Stage three ?| ? Stage three ? + --+ --+ ------+| ?15-29 ?| ?Stage four ? | ? Stage four ?+ ---+ ---+ -------+| ?<15 (or dialysis) ? ?| ?Stage five ? | ? Stage five ?+ ---+ ---+ -------+ *Each stage assumes the associated GFR level has been in effect for at least three months. ?Stages 1 to 5, with or without kidney disease, indicate chronic kidney disease. Notes: Determination of stages one and two (with eGFR >59mL/min/1.73 m2) requires estimation of kidney damage for at least three months as defined by structural or functional abnormalities of the kidney, manifested by either:Pathological abnormalities or Markers of kidney damage (including abnormalities in the composition of the blood or urine or abnormalities in imaging tests). Lab Interpretation Abnormal (test code = 40147-6) [facility] CampusMagnesium [id number] 11:51:33 Test Item Value Reference Range Interpretation Comments MAGNESIUM (test code = 1048896015) 1.5 mg/dL 1.7-2.4 L Lab Interpretation (test code = Abnormal 21241-7) [facility] Function Panel (ALB, T.PRO, BILI T, BU/BC, ALT, AST, ALK, PHOS)2022-11-01 11:51:33 Test Item Value Reference Range Interpretation Comments TOTAL BILI (test code = 6497839224) 0.6 mg/dL 0.1-1.1 BILI UNCON (test code = 4852600080) 0.1 mg/dL 0.1-1.1 BILI CONJ (test code = 4596056359) 0.0 mg/dL 0.0-0.3 T PROTEIN (test code = 5589528831) 5.9 g/dL 6.3-8.2 L ALBUMIN (test code = 9547853713) 3.8 g/dL 3.5-5.0 ALK PHOS (test code = 5360988552) 83 U/L 34-122 ALTv (test code = 1742-6) 27 U/L 5-35 AST(SGOT) (test code = 8386163949) 26 U/L 13-40 Lab Interpretation (test code = Abnormal 44778-2) [facility] [place] [facility]URIC [id number] 11:51:33 Test Item Value Reference Range Interpretation Comments URIC ACID (test code = 7214733477) 6.2 mg/dL 2.9-6.0 H Lab Interpretation (test code = Abnormal 23730-3) [facility] CampusPhosphorus [id number] 11:51:33 Test Item Value Reference Range Interpretation Comments PHOSPHORUS (test code = 2865220437) 3.2 mg/dL 2.5-5.0 Lab Interpretation (test code = Normal 45798-0) [facility] [place] [facility] CampusCBC with [id number] 11:48:01 Test Item Value Reference Range Interpretation Comments WBC (test code = See_Comment H [Automated 7590-2) message] The system which generated this result transmit sonido reference range : 4.30 - 11.10 10*3/?L. The reference range was not used to interpret this result as normal/abnormal . RBC (test code = See_Comment [Automated 789-8) message] The system which generated this result transmit sonido reference range : 3.93 - 5.25 10*6/?L. The reference range was not used to interpret this result as normal/abnormal . HGB (test code = 13.2 g/dL 11.6-15.0 718-7) HCT (test code = 39.2 % 35.7-45.2 4544-3) MCV (test code = 95.4 fL 80.6-95.5 787-2) MCH (test code = 32.1 pg 25.9-32.8 785-6) MCHC (test code = 33.7 g/dL 31.6-35.1 786-4) RDW-SD (test code = 47.8 fL 39.0-49.9 54421-2) RDW-CV (test code = 13.6 % 12.0-15.5 788-0) PLT (test code = See_Comment [Automated 777-3) message] The system which generated this result transmit sonido reference range : 166 - 358 10*3/ ?L. The reference range was not u sed to interpret th is result as normal/abnormal . MPV (test code = 10.4 fL 9.5-12.9 48985-9) NRBC/100 WBC (test See_Comment [Automat ed code = 8136400649) message] The system which generated this result transmit sonido reference range : 0.0 - 10.0 /100 WBCs. The reference range was not used to interpret this result as normal/abnormal . NRBC x10^3 (test code See_Comment [Auto mated = 8760308745) message] The system which generated this result transmit sonido reference range : 10*3/?L. The reference range was not used to interpret this result as normal/abnormal . GRAN MAT (NEUT) % 94.7 % (test code = 770-8) IMM GRAN % (test code 1.10 % = 6164792862) LYMPH % (test code = 1.1 % 736-9) MONO % (test code = 2.9 % 5905-5) EOS % (test code = 0.0 % 713-8) BASO % (test code = 0.2 % 706-2) GRAN MAT x10^3(ANC) 20.29 10*3/uL 1.88-7.09 H (test code = 5054301063) IMM GRAN x10^3 (test 0.23 10*3/uL 0.00-0.06 H code = 4253867921) LYMPH x10^3 (test code 0.24 10*3/uL 1.32-3.29 L = 731-0) MONO x10^3 (test code 0.62 10*3/uL 0.33-0.92 = 742-7) EOS x10^3 (test code = 0.03-0.39 L 711-2) BASO x10^3 (test code 0.04 10*3/uL 0.01-0.07 = 704-7) BANDS (test code = Increased A 5997807979) Lab Interpretation Abnormal (test code = 32491-9) [facility] SARS-COV-2 ANTIGEN (BINAX NOW)2022-10-13 17:07:00 Test Item Value Reference Range Interpretation Comments POCT SARS-COV-2 ANTIGEN (test Not Detected Not Detected code = 09236-6) On board controls acceptable Yes with C Line (test code = 3574) Lab Interpretation (test code = Normal 58053-1) [facility] SARS-COV-2 ANTIGEN (BINAX NOW)2022-10-13 17:07:00 Test Item Value Reference Range Interpretation Comments POCT SARS-COV-2 ANTIGEN (test Not Detected Not Detected code = 85091-8) On board controls acceptable Yes with C Line (test code = 3574) Lab Interpretation (test code = Normal 22974-5) [facility] MOLECULAR [id number] 16:57:45 Test Item Value Reference Range Interpretation Comments POCT Molecular FluA (test code = Negative Negative 51885-8) POCT Molecular FluB (test code = Negative Negative 20157-2) Lab Interpretation (test code = Normal 86103-0) [facility] MOLECULAR [id number] 16:49:35 Test Item Value Reference Range Interpretation Comments POCT Molecular Strep (test code = Negative Negative 66461-1) Lab Interpretation (test code = Normal 83507-0) [facility] MOLECULAR [id number] 14:44:34 Test Item Value Reference Range Interpretation Comments POCT Molecular FluA (test code = Negative Negative 24031-2) POCT Molecular FluB (test code = Negative Negative 68068-8) Lab Interpretation (test code = Normal 52533-3) [facility] MOLECULAR [id number] 14:41:08 Test Item Value Reference Range Interpretation Comments POCT Molecular Strep (test code = Negative Negative 91734-8) Lab Interpretation (test code = Normal 58315-8) [facility]"
[2022-12-09 11:41] LABS: Hematocrit 40.9 % (36.0-45.0); MCV 93.2 fL (80-100); RBC Red Blood Cell Count 4.39 M/uL (3.86-4.86)
[2022-12-09 11:53] LABS: Protime INR 1.04
[2022-12-09] MEDS ORDERED: ACETAMINOPHEN 500 MG TAB ONE (11:58)
[2022-12-09] MEDS ORDERED: NA CHLORIDE 0.9% 2,000 ML ONE (11:58)
[2022-12-09] MEDS ORDERED: FAMOTIDINE 20 MG/2 ML VIAL IV ONE (11:59)
[2022-12-09 12:01] LABS: Albumin 3.7 g/dL (3.4-5.0); Bilirubin Total 0.3 mg/dL (0.2-1.0); Protein, Total 7.2 g/dL (6.4-8.2)
[2022-12-09 12:18] LABS: Magnesium 1.2 mg/dL (1.6-2.4)
--- NOTE | 2022-12-09 12:26 | RAD REPORT ---
EXAM DESCRIPTION: CTChest Abd Pelvis Wo Con - 12/09/2022 12:11 pm CLINICAL HISTORY: Cough COMPARISON: CTANGIO CHEST FOR PE dated 11/25/2015; Angio Aorta For Dissection dated 10/31/2022 TECHNIQUE: CT of the chest, abdomen, and pelvis was performed. All CT scans are performed using dose optimization technique as appropriate and may include automated exposure control or mA/KV adjustment according to patient size. FINDINGS: Thorax: Chest Wall: No abnormal mass Lungs: Calcified left lower lobe nodule. Emphysema. Pleura: No effusions or pneumothorax. [place]/Mediastinum: No lymphadenopathy. Eccentric thickening of the distal esophagus. Aorta/Pulmonary Arteries: Unremarkable Heart: Normal size. Abdomen/Pelvis: Liver: Too small to characterize liver lesions which are likely benign. Biliary: No biliary ductal dilatation. Cholecystectomy Stomach: No significant focal abnormality. Duodenum: No significant focal abnormality. Pancreas: No significant abnormality. Spleen: No significant abnormality. Adrenal: No suspicious lesions. Kidney/ureter: No hydronephrosis. Right-sided nephroureteral stent. Stone again identified in the lef t distal ureter measuring 6 millimeters. Retroperitoneum: No retroperitoneal adenopathy. Vascular: Infrarenal abdominal aortic aneurysm measuring approximately 4.9 cm is unchanged. Bowel: No significant focal abnormality diverticulosis. No evidence of acute diverticulitis. . Peritoneum: No ascites or free air. Bladder: Grossly unremarkable. Reproductive: No adnexal masses. Bones: No acute fracture. Other: n/a IMPRESSION: 1. No acute findings within the chest. 2. Interval placement of a right-sided nephroureteral stent for a right distal ureteral stone. 3. Infrarenal abdominal aortic aneurysm is unchanged since 10/31/2022.
[2022-12-09] MEDS ORDERED: Meropenem 1,000 MG in NA CHLORIDE 0.9% 100 ML IV ONE (12:35)
[2022-12-09 12:36] LABS: SARS-COV-2 RT PCR NEGATIVE (NEGATIVE)
[2022-12-09 12:58] LABS: Urine Blood 3+ (Negative); Urine Glucose Negative (Negative); Urine Protein 3+ (Negative); Urine Specific Gravity 1.015 (1.005-1.030)
--- NOTE | 2022-12-09 12:58 | RAD REPORT ---
EXAM DESCRIPTION: RAD - Chest Single View - 12/09/2022 12:27 pm CLINICAL HISTORY: COUGH COMPARISON: Chest Single View dated 10/31/2022; Chest Single View dated 12/06/2021; Chest Single View dated 12/03/2021; Chest Pa And Lat (2 Views) dated 08/04/2019 FINDINGS: Lines: None. Lungs: No evidence of edema or pneumonia. Pleural: No significant pleural effusions or pneumothorax. Cardiac: The heart size is within normal limits. Mediastinum: Within normal limits. Bones: No acute fractures. Other: None IMPRESSION: No acute cardiopulmonary disease.
[2022-12-09 13:06] LABS: Urine Bacteria >50 /HPF (<20); Urine Mucus Slight /HPF (None Seen); Urine RBC >50 /HPF (None Seen); Urine WBC Clump Few /HPF (None Seen)
--- NOTE | 2022-12-09 13:10 | EDPHYS ---
Physician Documentation [facility] Name: Cornelia Fairbanks Age: 67 yrs Sex: Female : 1955 Arrival Date: 12/09/2022 Time: 11:05 Bed 2 Private MD: ELMA Physician Kaushik Moore HPI: 12/09 12:58 This 67 yrs old Female presents to ER via Wheelchair with complaints of Post yahir Surgical Pain. 12:58 The patient presents with abdominal pain abdominal distention in the right upper yahir quadrant, in the right lower quadrant. Onset: The symptoms/episode began/occurred 2 day(s) ago. The patient presents with urinary symptoms, dysuria, frequency, hematuria, urgency. Onset: The symptoms/episode began/occurred 2 day(s) ago. Modifying factors: The symptoms are alleviated by nothing, the symptoms are aggravated by nothing. Associated signs and symptoms: Pertinent positives: dysuria, fever, nausea, urinary frequency. Severity of symptoms: At their worst the symptoms were. The patient presents with pain that is acute, with no known mechanism of injury, and decreased range of motion. Onset: The symptoms/episode began/occurred 2 day(s) ago. Historical: - Allergies: 11:23 NKDA; aa5 - Home Meds: 13:56 Albuterol Inhl every 6 hours [Active]; amlodipine 5 mg tab 1 tab once daily [Active]; iw atorvastatin 20 mg Oral tab 1 tab once daily [Active]; clopidogrel 75 mg Oral tab 1 tab once daily [Active]; lisinopril 2.5 mg Oral tab once daily [Active]; Metformin Oral [Active]; omeprazole 20 mg Oral cpDR 1 cap once daily [Active]; prednisone 10 mg Oral tab PRN [Active]; potassium chloride 10 mEq Oral TbER once daily [Active]; triamterene-hydrochlorothiazid 37.5-25 mg Oral cap once daily [Active]; Stiolto Respimat 2.5-2.5 mcg/actuation inhalation mist 2 puffs [Active]; Spiriva with HandiHaler inhalation [Active]; ProAir HFA inhalation [Active]; - PMHx: 11:23 AAA; Asthma; COPD; CVA; Depression; Diabetes - NIDDM; Hypertension; Kidney stones; aa5 Myocardial infarction; - Immunization history:: Adult Immunizations unknown. - Family history:: not pertinent. - Social history:: Smoking status: . ROS: 12:58 Eyes: Negative for injury, pain, redness, and discharge, ENT: Negative for injury, yahir pain, and discharge, Neck: Negative for injury, pain, and swelling, Cardiovascular: Negative for chest pain, palpitations, and edema, Respiratory: Negative for shortness of breath, cough, wheezing, and pleuritic chest pain, Abdomen/GI: Negative for abdominal pain, nausea, vomiting, diarrhea, and constipation, MS/Extremity: Negative for injury and deformity, Skin: Negative for injury, rash, and discoloration, Neuro: Negative for headache, weakness, numbness, tingling, and seizure, Psych: Negative for depression, anxiety, suicide ideation, homicidal ideation, and hallucinations, Allergy/Immunology: Negative for hives, rash, and allergies, Endocrine: Negative for neck swelling, polydipsia, polyuria, polyphagia, and marked weight changes, Hematologic/Lymphatic: Negative for swollen nodes, abnormal bleeding, and unusual bruising. 12:58 Constitutional: Positive for chills, fever, malaise. 12:58 Abdomen/GI: Positive for abdominal pain, of the posterior aspect of right lateral abdomen, right upper quadrant and right lower quadrant. 12:58 Back: Positive for decreased range of motion, flank pain, on the right. 12:58 : Positive for urinary symptoms, flank pain, hematuria, burning with urination, difficulty urinating, foul smelling urine. Exam: 12:58 Head/Face: Normocephalic, atraumatic. Eyes: Pupils equal round and reactive to light, yahir extra-ocular motions intact. Lids and lashes normal. Conjunctiva and sclera are non-icteric and not injected. Cornea within normal limits. Periorbital areas with no swelling, redness, or edema. ENT: Nares patent. No nasal discharge, no septal abnormalities noted. Tympanic membranes are normal and external auditory canals are clear. Oropharynx with no redness, swelling, or masses, exudates, or evidence of obstruction, uvula midline. Mucous membranes moist. Neck: Trachea midline, no thyromegaly or masses palpated, and no cervical lymphadenopathy. Supple, full range of motion without nuchal rigidity, or vertebral point tenderness. No Meningismus. Chest/axilla: Normal chest wall appearance and motion. Nontender with no deformity. No lesions are appreciated. Respiratory: Lungs have equal breath sounds bilaterally, clear to auscultation and percussion. No rales, rhonchi or wheezes noted. No increased work of breathing, no retractions or nasal flaring. Female : Normal external genitalia. Skin: Warm, dry with normal turgor. Normal color with no rashes, no lesions, and no evidence of cellulitis. MS/ Extremity: Pulses equal, no cyanosis. Neurovascular intact. Full, normal range of motion. Neuro: Awake and alert, GCS 15, oriented to person, place, time, and situation. Cranial nerves II-XII grossly intact. Motor strength 5/5 in all extremities. Sensory grossly intact. Cerebellar exam normal. Normal gait. Psych: Awake, alert, with orientation to person, place and time. Behavior, mood, and affect are within normal limits. 12:58 Constitutional: The patient appears febrile. 12:58 Cardiovascular: Rate: tachycardic, actual rate is 139 bpm, Rhythm: regular, Pulses: Pulses are 4+ in bilateral radial, brachial, femoral, popliteal, posterior tibial and and dorsalis pedis arteries.. Heart sounds: normal, normal S1and S2, no S3 or S4, no murmur, no rub, no gallop, Edema: is not appreciated, JVD: is not appreciated. 12:58 ECG was reviewed by the Attending Physician. Vital Signs: 11:09 BP 94 / 73; Pulse 139; Resp 22 S; Temp 100.1(O); Pulse Ox 97% on R/A; Weight 68.04 kg aa5 (R); Height 5 ft. 2 in. (157.48 cm); 13:19 BP 107 / 63; Pulse 105; Resp 18; Pulse Ox 98% on R/A; iw 14:43 BP 112 / 68; Pulse 102; Resp 16; Temp 99.0; Pulse Ox 100% on R/A; iw 11:09 Body Mass Index 27.44 (68.04 kg, 157.48 cm) aa5 MDM: 11:29 Patient medically screened. yahir 13:03 Differential diagnosis: Obesity Renal Infarction Scoliosis Ureterolithiasis urinary yahir tract infection, diverticulitis, gastritis, pancreatitis, Peptic Ulcer Disease. Data reviewed: vital signs, nurses notes, lab test result(s), EKG, radiologic studies, CT scan, plain films. Consideration of Admission/Observation Patient was admitted/placed on observation. I considered the following discharge prescriptions or medication management in the emergency department Medications were administered in the Emergency Department. See MAR. Independent interpretation of the following test(s) in the Emergency Department X-Ray: My interpretation is cxr neg. Test considered but Not performed: Ultrasound no renal usg. Care significantly affected by the following chronic conditions: Diabetes, Hypertension, Obesity. 12/09 11:25 Order name: Blood Culture Adult (2) 12/09 11:25 Order name: CBC with Diff; Complete Time: 12: 12/09 11:25 Order name: CMP; Complete Time: 12: 12/09 11:25 Order name: Lactate w/ 2H reflex if indic.; Complete Time: : 12/09 11:25 Order name: Protime (+inr); Complete Time: 12: 12/09 11:25 Order name: Ptt, Activated; Complete Time: 12: 12/09 11:25 Order name: Urine Culture 12/09 11:25 Order name: Urine Microscopic Only; Complete Time: 13: 12/09 11:35 Order name: Magnesium; Complete Time: 12:29 [facility] 12/09 11:35 Order name: NT PRO-BNP; Complete Time: 12: [facility] 12/09 11:35 Order name: Troponin HS; Complete Time: 12: [facility] 12/09 11:37 Order name: COVID-19/FLU A+B; Complete Time: 13: [facility] 12/09 12:58 Order name: Urine Dipstick-Ancillary; Complete Time: 13: EDMS 12/09 11:25 Order name: EKG; Complete Time: 11: 12/09 11:25 Order name: Accucheck; Complete Time: 13: 12/09 11:25 Order name: Cardiac monitoring; Complete Time: : 12/09 11:25 Order name: EKG - Nurse/Tech; Complete Time: : 12/09 11:25 Order name: IV Saline Lock - Large Bore; Complete Time: 13: 12/09 11:25 Order name: Labs collected and sent; Complete Time: : 12/09 11:25 Order name: O2 Per Protocol; Complete Time: 13:29 12/09 11:35 Order name: XRAY Chest (1 view); Complete Time: 13: [facility] 12/09 11:36 Order name: CT Chest Abdomen Pelvis W/O Contrast; Complete Time: 13: [facility] 12/09 11:25 Order name: O2 Sat Monitoring; Complete Time: 13:29 12/09 11:25 Order name: Vital Signs; Complete Time: 19:30 12/09 11:35 Order name: IV Saline Lock; Complete Time: 13:05 [facility] EC:58 Rate is 135 beats/min. Rhythm is regular. QRS [place] is Normal. PA interval is normal. yahir QRS interval is normal. QT interval is normal. No ST changes noted. Clinical impression: Sinus tachycardia. Interpreted by me. Reviewed by me. Administered Medications: 12:05 Drug: NS 0.9% 1000 ml Route: IV; Rate: 1 bolus; Site: right forearm; iw 13:35 Follow up: IV Status: Completed infusion iw 12:05 Drug: Tylenol 1000 mg Route: PO; iw 13:15 Follow up: Response: No adverse reaction iw 12:05 Drug: Pepcid (famotidine) 20 mg Route: IVP; Site: right forearm; iw 12:35 Follow up: Response: No adverse reaction iw 13:18 Drug: Meropenem 1 grams Route: IV; Rate: per protocol; Site: right wrist; iw 14:18 Follow up: IV Status: Completed infusion iw 13:56 Drug: Magnesium Sulfate 2 grams Route: IVPB; Infused Over: 1 hrs; Site: right forearm; iw 15:00 Follow up: IV Status: Completed infusion iw 15:05 Drug: levofloxacin 500 mg Volume: 100 ml; Route: IVPB; Infused Over: 60 mins; Site: iw right wrist; 15:35 Follow up: IV Status: Infusion continued upon transfer iw Disposition Summary: 12/09/22 13:10 Transfer Ordered Transfer Location: [facility] yahir Reason: Higher level of care yahir Condition: Fair yahir Problem: new yahir Symptoms: have improved yahir Accepting Physician: to [facility](12/09/22 15:41) iw Diagnosis - Pyelonephritis acute yahir - Fever, unspecified yahir - Severe sepsis without septic shock yahir - Elevated white blood cell count yahir - Other mechanical complication of urinary stent yahir - Other mechanical complication of urinary (indwelling) catheter yahir - Tachycardia, unspecified yahir - Hypomagnesemia yahir Forms: - Medication Reconciliation Form yahir - SBAR form yahir Signatures: Dispatcher [employer] Kaushik Tuttle MD MD cha Williams, Irene, RN RN iw Mar Tejeda RN RN aa5 Corrections: (The following items were deleted from the chart) 12:02 11:36 BASIC METABOLIC PANEL+C.LAB.BRZ ordered. [facility] 13:10 13:10 to [facility] 13:23 13:10 to [facility] 13:57 13:56 Home Meds: metformin 1000mg BID; iw iw 15:41 13:23 to [facility]
--- NOTE | 2022-12-09 13:10 | ER ---
Nurse's Notes [facility] Name: Cornelia Fairbanks Age: 67 yrs Sex: Female : 1955 Arrival Date: 12/09/2022 Time: 11:05 Bed 2 Private MD: Diagnosis: Pyelonephritis acute;Fever, unspecified;Severe sepsis without septic shock;Elevated white blood cell count;Other mechanical complication of urinary stent;Other mechanical complication of urinary (indwelling) catheter;Tachycardia, unspecified;Hypomagnesemia Presentation: 12/09 11:09 Chief complaint: Patient states: had sx at [facility] 12/07/22 for R nephrostomy aa5 tube for "obstructing kidney stone". Pt reports increased pain to nephrostomy tube site. 11:09 Coronavirus screen: At this time, the client does not indicate any symptoms associated aa5 with coronavirus-19. Ebola Screen: Patient denies travel to an Ebola-affected area in the 21 days before illness onset. Initial Sepsis Screen: Does the patient meet any 2 criteria? RR > 20 per min. HR > 90 bpm. Yes Does the patient have a suspected source of infection? Yes:. Risk Assessment: Do you want to hurt yourself or someone else? Patient reports no desire to harm self or others. Onset of symptoms was November 2022. 11:09 Acuity: GALDINO 2 aa5 11:09 Method Of Arrival: Wheelchair aa5 Triage Assessment: 15:41 General: Appears in no apparent distress. Behavior is calm, cooperative. iw Historical: - Allergies: 11:23 NKDA; aa5 - Home Meds: 13:56 Albuterol Inhl every 6 hours [Active]; amlodipine 5 mg tab 1 tab once daily [Active]; iw atorvastatin 20 mg Oral tab 1 tab once daily [Active]; clopidogrel 75 mg Oral tab 1 tab once daily [Active]; lisinopril 2.5 mg Oral tab once daily [Active]; Metformin Oral [Active]; omeprazole 20 mg Oral cpDR 1 cap once daily [Active]; prednisone 10 mg Oral tab PRN [Active]; potassium chloride 10 mEq Oral TbER once daily [Active]; triamterene-hydrochlorothiazid 37.5-25 mg Oral cap once daily [Active]; Stiolto Respimat 2.5-2.5 mcg/actuation inhalation mist 2 puffs [Active]; Spiriva with HandiHaler inhalation [Active]; ProAir HFA inhalation [Active]; - PMHx: 11:23 AAA; Asthma; COPD; CVA; Depression; Diabetes - NIDDM; Hypertension; Kidney stones; aa5 Myocardial infarction; - Immunization history:: Adult Immunizations unknown. - Family history:: not pertinent. - Social history:: Smoking status: . Screenin:15 [facility] ED Fall Risk Assessment (Adult) History of falling in the last 3 months, iw including since admission No falls in past 3 months (0 pts). 15:41 Abuse screen: Denies threats or abuse. Denies injuries from another. Nutritional iw screening: No deficits noted. Tuberculosis screening: No symptoms or risk factors identified. Assessment: 12:00 General: Appears in no apparent distress. comfortable, Behavior is calm, cooperative. iw Neuro: Level of Consciousness is awake, alert, obeys commands, Oriented to person, place, time, situation, Moves all extremities. Full function. Cardiovascular: Patient's skin is warm and dry. Respiratory: Respiratory effort is even, unlabored, Respiratory pattern is regular, symmetrical. : Urine is clear, nephrostomy tube noted to right mid back, dressing clean, dry, intact. Derm: Skin is intact, is healthy with good turgor. Musculoskeletal: Range of motion: intact in all extremities. 13:19 Reassessment: Patient appears in no apparent distress at this time. Patient and/or iw family updated on plan of care and expected duration. Pain level reassessed. Patient is alert, oriented x 3, equal unlabored respirations, skin warm/dry/pink. Patient states feeling better. Patient states symptoms have improved. 14:20 Reassessment: Patient appears in no apparent distress at this time. Patient and/or iw family updated on plan of care and expected duration. Pain level reassessed. Patient is alert, oriented x 3, equal unlabored respirations, skin warm/dry/pink. Pain: Denies pain. 15:30 Reassessment: Patient appears in no apparent distress at this time. Patient and/or iw family updated on plan of care and expected duration. Pain level reassessed. Patient is alert, oriented x 3, equal unlabored respirations, skin warm/dry/pink. Vital Signs: 11:09 BP 94 / 73; Pulse 139; Resp 22 S; Temp 100.1(O); Pulse Ox 97% on R/A; Weight 68.04 kg aa5 (R); Height 5 ft. 2 in. (157.48 cm); 13:19 BP 107 / 63; Pulse 105; Resp 18; Pulse Ox 98% on R/A; iw 14:43 BP 112 / 68; Pulse 102; Resp 16; Temp 99.0; Pulse Ox 100% on R/A; iw 11:09 Body Mass Index 27.44 (68.04 kg, 157.48 cm) aa5 ED Course: 11:05 Patient arrived in ED. rg4 11:20 Arm band placed on. aa5 11:22 Triage completed. aa5 11:27 Samaria Fernandez, RN is Primary Nurse. iw 11:29 Kaushik Moore MD is Attending Physician. yahir 11:55 Inserted saline lock: 20 gauge in right forearm, using aseptic technique. Blood iw collected. 12:13 CT Chest Abdomen Pelvis W/O Contrast In Process Unspecified. EDMS 12:29 XRAY Chest (1 view) In Process Unspecified. EDMS 13:04 initiated a transfer with Cailin Bethea from the [facility] Transfer Center at the request of eb the patient. She just had her surgery 12/07/22 at [facility]. 13:[address] Morgan the hospitalist electronic maintenance supervisor for [facility] for patient transfer eb consultation. 13:40 administrative approval given by Cailin Bethea/ patient has been accepted to [facility] RM 201/ Dr. Morgan has accepted the patient in transfer/ report to be called [phone]. 15:40 No provider procedures requiring assistance completed. Patient transferred, IV remains iw in place. 15:41 Patient has correct armband on for positive identification. iw Administered Medications: 12:05 Drug: NS 0.9% 1000 ml Route: IV; Rate: 1 bolus; Site: right forearm; iw 13:35 Follow up: IV Status: Completed infusion iw 12:05 Drug: Tylenol 1000 mg Route: PO; iw 13:15 Follow up: Response: No adverse reaction iw 12:05 Drug: Pepcid (famotidine) 20 mg Route: IVP; Site: right forearm; iw 12:35 Follow up: Response: No adverse reaction iw 13:18 Drug: Meropenem 1 grams Route: IV; Rate: per protocol; Site: right wrist; iw 14:18 Follow up: IV Status: Completed infusion iw 13:56 Drug: Magnesium Sulfate 2 grams Route: IVPB; Infused Over: 1 hrs; Site: right forearm; iw 15:00 Follow up: IV Status: Completed infusion iw 15:05 Drug: levofloxacin 500 mg Volume: 100 ml; Route: IVPB; Infused Over: 60 mins; Site: iw right wrist; 15:35 Follow up: IV Status: Infusion continued upon transfer iw Medication: 15:41 VIS not applicable for this client. iw Outcome: 13:10 ER care complete, transfer ordered by . yahir 15:40 Transferred by ground EMS to [facility], Transfer form iw completed. X-rays sent w/ patient. Note: Anthony 15:40 Condition: good 15:40 Discharge instructions given to patient, family, Instructed on the need for transfer, Demonstrated understanding of instructions. 15:41 Patient left the ED. iw Addendum: 12/12/2022 08:47 Addendum: Culture Results: Other faxed culture to [facility]. pt in room 213. b d Signatures: Dispatcher [employer] EDMS Consuelo Ruby Corey, MD MD cha Williams, Irene, RN RN Mar Lloyd RN RN Opal Patel4 Roberta Crowe Corrections: (The following items were deleted from the chart) 12/09 13:19 12:10 Inserted saline lock: 20 gauge in right forearm, using aseptic technique. Blood iw collected. iw 13:41 13:04 initiated a transfer with Cailin Bethea from the [facility] Transfer Center. eb eb 13:57 13:56 Home Meds: metformin 1000mg BID; iw iw
[2022-12-09] MEDS ORDERED: Meropenem 1000 MG/VIAL IV ONE (13:12)
[2022-12-09] MEDS ORDERED: NA CHLORIDE 0.9% 100 ML ONE (13:12)
[2022-12-09] MEDS ORDERED: Magnesium Sulfate 2gm IVPB 2 G/50 ML BAG IV ONE (13:13)
[2022-12-09] MEDS ORDERED: Levofloxacin500mg IV 500 MG/100 ML BAG IV ONE (14:21)
[2022-12-09 15:49] VITALS: BP 112/68; TEMP 99; O2SAT 100
--- NOTE | 2022-12-11 18:45 | EKG ---
Test Date: 2022-12-09 Test Time: 11:27:35 [employer] Director: HARJIT MEASUREMENT RESULTS: Intervals: Rate: 135 [place]: 124 QRSD: 88 QT: 300 QTc: 450 [place]: P: 84 [place]: 124 QRS: -80 T: 90 INTERPRETIVE STATEMENTS: Sinus tachycardia Right atrial enlargement Pulmonary disease pattern Left anterior fascicular block Left ventricular hypertrophy with repolarization abnormality Abnormal ECG Compared to ECG 12/03/2021 10:44:07 Early repolarization now present Electronically Signed On 12-11-22 18:41:27 CHILD CARE EDUCATION COORDINATOR by Isaiah Lawson
== END 2022-12-09 15:41 | disposition short-term general hospital (02) ==
LOC: ER 11:00
DX: A41.9 Sepsis, unspecified organism (principal); N10 Acute pyelonephritis; R65.20 Severe sepsis without septic shock; D72.829 Elevated white blood cell count, unspecified; E83.42 Hypomagnesemia; R00.0 Tachycardia, unspecified; T83.192A Other mechanical complication of indwelling ureteral stent, initial encounter; T83.098A Other mechanical complication of other urinary catheter, initial encounter; J44.9 Chronic obstructive pulmonary disease, unspecified; I10 Essential (primary) hypertension; E11.9 Type 2 diabetes mellitus without complications; Z87.442 Personal history of urinary calculi; Z86.73 Personal history of transient ischemic attack (TIA), and cerebral infarction without residual deficits; Z20.822 Contact with and (suspected) exposure to COVID-19
CPT/HCPCS: 93005; 87040 ×2; 87088; 85025; 87086; 36415; 83735; 85610; 83605; 85730; 87077; 87186; 84484; 80053; 83880; 0240U; 71250; 74176; 71045; 99285; J2185; J3475; J7030; 81003; 81015

== ENCOUNTER → 2023-11-19 | Emergency (ER) | payer BC, OTHER ==
[~2023-11-19] MED LIST: ALBUTEROL 2.5 MG/3 ML NEB SOL ONE; FAMOTIDINE 20 MG/2 ML VIAL IV ONE; IPRATROPIUM BROM 0.5MG/2.5ML ONE; METHYLPREDNISOLONE 125 MG INJ ONE; ONDANSETRON 4 MG/2 ML VIAL ONE
[2023-11-19 11:58] LABS: Absolute Lymphocytes (CBC) 1.8 K/uL (0.7-4.9); Hematocrit 45.4 % (36.0-45.0); Lymphocytes % 17.1 % (15.3-44.8); MCV 97.6 fL (80-100); MPV 7.8 fL (7.6-11.3); Platelets 408 thou/uL (152-406); RBC Red Blood Cell Count 4.65 M/uL (3.86-4.86)
[2023-11-19 12:14] LABS: Albumin 3.5 g/dL (3.4-5.0); Bilirubin Total 0.5 mg/dL (0.2-1.0); Protein, Total 6.9 g/dL (6.4-8.2)
--- NOTE | 2023-11-19 12:35 | RAD REPORT ---
EXAM DESCRIPTION: Mary Alice Enciso And Lat (2 Views)11/19/2023 12:25 pm CLINICAL HISTORY: Cough COMPARISON: 2022 FINDINGS: Lungs are mildly to moderately hyperaerated. Calcified granuloma left lower lobe The lungs appear clear of acute infiltrate. The heart is normal size IMPRESSION: No acute abnormalities displayed
--- NOTE | 2023-11-19 13:02 | RAD REPORT ---
EXAM DESCRIPTION: CT - Abdomen Pelvis W Contrast - 11/19/2023 12:30 pm CLINICAL HISTORY: ABD PAIN COMPARISON: Abdomen W/Wo Contrast dated 11/09/2023 TECHNIQUE: Thin cut axial CT imaging of the abdomen and pelvis was performed following intravenous a dministration of 100 mL Isovue 300. Multiplanar reformats were generated and reviewed. All CT scans are performed using dose optimization technique as appropriate and may include automated exposure control or mA/KV adjustment according to patient size. FINDINGS: No suspicious findings in the lung bases. Stable 1 cm left basilar calcified granuloma pos teriorly. Stable central right lower lobe bullous change. The liver shows a stable 1 cm cyst near the dome. No other suspicious findings. Spleen, adrenal gland s, and pancreas show no suspicious findings. Gallbladder was surgically removed. Symmetric renal function is seen with no hydronephrosis or suspicious renal mass. No dilated bowel loops or bowel wall thickening. No free air, free fluid or inflammatory stranding. U pper midline ventral fat containing hernia is stable. Fusiform infrarenal abdominal aortic aneurysm i s stable, with aneurysm sac again measuring up to 5.4 cm in greatest caliber distal colonic diverticu losis again seen. No suspicious mass or bulky lymphadenopathy. The urinary bladder is without signifi cant finding. No suspicious bony findings. IMPRESSION: No acute intra-abdominal process. Stable findings including a stable infrarenal abdominal aortic aneurysm.
--- NOTE | 2023-11-19 13:20 | EDPHYS ---
Physician Documentation [facility] Name: Cornelia Fairbanks Age: 68 yrs Sex: Female : 1955 Arrival Date: 11/19/2023 Time: 11:15 Bed 15 Private MD: ED Physician Dejon Meraz HPI: 11/19 11:46 This 68 yrs old Female presents to ER via Ambulatory with complaints of ms3 Breathing Difficulty, Vomiting/Diarrhea. 11:46 68-year-old female past medical history of AAA, asthma, hypertension, diabetes, ms3 depression, COPD, kidney stones presents to the emergency department for vomiting, diarrhea, headache that is been ongoing for 3 days. Patient states her son-in-law has a cough. Patient denies chills. Patient denies any alleviating or inciting factors. Historical: - Allergies: 11:30 NKDA; ko1 - PMHx: 11:30 AAA; Asthma; Hypertension; Diabetes - NIDDM; CVA; Depression; COPD; Kidney stones; ko1 Myocardial infarction; - Immunization history:: Adult Immunizations unknown, Client reports having NOT received the Covid vaccine. - Social history:: Smoking status: Patient/guardian denies using tobacco, but has a distant history of tobacco abuse. ROS: 11:46 Constitutional: Negative for fever, and chills. ENT: Negative for injury, pain, and ms3 discharge, Neck: Negative for injury, pain, and swelling, Cardiovascular: Negative for chest pain, and palpitations. Respiratory: Negative for shortness of breath, cough, wheezing, and pleuritic chest pain, Abdomen/GI: Negative for abdominal pain, nausea, vomiting, diarrhea, and constipation, MS/Extremity: Negative for injury and deformity, Skin: Negative for injury, rash, and discoloration, 11:46 All other systems are negative, Exam: 11:46 Constitutional: This is a well developed, well nourished patient who is awake, alert, ms3 and in no acute distress. Head/Face: Normocephalic, atraumatic. Neck: Trachea midline, no cervical lymphadenopathy. Supple, full range of motion without nuchal rigidity, or vertebral point tenderness. No Meningismus. Chest/axilla: Normal chest wall appearance and motion. Nontender with no deformity. Abdomen/GI: Soft, non-tender, with normal bowel sounds. No distension or tympany. No guarding or rebound. No evidence of tenderness throughout. Skin: Warm, dry with normal turgor. Normal color with no rashes, no lesions, and no evidence of cellulitis. 11:46 Cardiovascular: Rate: tachycardic, Rhythm: regular, Pulses: no pulse deficits are appreciated, 11:46 Respiratory: the patient does not display signs of respiratory distress, Respirations: normal, Breath sounds: wheezing: expiratory that is mild, is heard diffusely, Vital Signs: 11:29 BP 125 / 98; Pulse 113; Resp 18; Temp 97.8; Pulse Ox 95% ; Weight 70.31 kg; Height 5 ko1 ft. 2 in. ; 11:29 Body Mass Index 28.35 (70.31 kg, 157.48 cm) ko1 MDM: 11:42 Patient medically screened. ms3 11:46 Differential diagnosis: Chronic Obstructive Pulmonary Disease pneumonia, Dehydration. ms3 13:15 Data reviewed: vital signs, nurses notes, and as a result, I will discharge patient. I ms3 considered the following discharge prescriptions or medication management in the emergency department Medications were administered in the Emergency Department. See MAR. Independent interpretation of the following test(s) in the Emergency Department X-Ray: My interpretation is CXR image reviewed by me does not reveal PNA. Counseling: I had a detailed discussion with the patient and/or guardian regarding the historical points, exam findings, and any diagnostic results supporting the discharge/admit diagnosis, lab results, radiology results, the need for outpatient follow up, to return to the emergency department if symptoms worsen or persist or if there are any questions or concerns that arise at home. Response to treatment: the patient's symptoms have markedly improved after treatment, and as a result, I will discharge patient. ED course: Discussed labs, imaging with patient. Patient to follow-up with primary care physician 2 to 3 days. Patient understands agrees with plan. All questions were answered. Return precautions discussed include worsening symptoms, or any other concerns. 11/19 11:43 Order name: CBC with Diff; Complete Time: 12:38 ms3 11/19 11:43 Order name: CMP; Complete Time: 12:38 ms3 11/19 11:43 Order name: Lipase; Complete Time: 12:38 ms3 11/19 11:51 Order name: Chest Pa And Lat (2 Views) XRAY; Complete Time: 12:38 ms3 11/19 11:51 Order name: CT Abd/Pelvis - IV Contrast Only; Complete Time: 13:04 ms3 11/19 11:43 Order name: IV Saline Lock; Complete Time: 12:08 ms3 11/19 11:43 Order name: Labs collected and sent; Complete Time: 12:08 ms3 Administered Medications: 12:01 Drug: DuoNeb Nebulize (2.5 mg - 0.5 mg) 3 ml Nebulizer once Route: Nebulizer; cp4 12:01 Drug: MethylPrednisoLONE IVP 125 mg IVP once Route: IVP; Site: right antecubital; cp4 12:02 Drug: Famotidine IVP 20 mg IVP once; dilute with 10 mL 0.9% NaCl; give over 2 minutes cp4 Route: IVP; Site: right antecubital; 12:02 Drug: Ondansetron IVP 4 mg IVP once; over 2 minutes Route: IVP; Site: right antecubital;cp4 12:03 Drug: Albuterol Inhalation 5 mg Inhalation once Route: Inhalation; cp4 Disposition Summary: 11/19/23 13:19 Discharge Ordered Notes: Location: Home ms3 Condition: Stable ms3 Diagnosis - COPD/ Chronic obstructive pulmonary disease with (acute) exacerbation ms3 - Abdominal pain, Generalized ms3 - Vomiting ms3 - Diarrhea, unspecified ms3 Followup: ms3 - With: Oscar Quintanilla DO - When: 2 - 3 days - Reason: Recheck today's complaints Discharge Instructions: - Discharge Summary Sheet ms3 - Abdominal Pain, Adult ms3 - Diarrhea, Adult ms3 - Vomiting, Adult ms3 Forms: - Medication Reconciliation Form ms3 - Thank You Letter ms3 - Antibiotic Education ms3 - Prescription Opioid Use ms3 - Patient Portal Instructions ms3 - Leadership Thank You Letter ms3 Signatures: Dispatcher [employer] Dejon Zamorano DO DO ms3 Jasmyn Goodman, RN RN Tamara Donnelly cp4
--- NOTE | 2023-11-19 13:20 | ER ---
Nurse's Notes [facility] Name: Cornelia Fairbanks Age: 68 yrs Sex: Female : 1955 Arrival Date: 11/19/2023 Time: 11:15 Bed 15 Private MD: Diagnosis: COPD/ Chronic obstructive pulmonary disease with (acute) exacerbation;Abdominal pain, Generalized;Vomiting;Diarrhea, unspecified Presentation: 11/19 11:29 Chief complaint: Patient states: headache, dizzy, diarrhea and just not feeling well x ko1 3 days. Coronavirus screen: At this time, the client does not indicate any symptoms associated with coronavirus-19. Ebola Screen: No symptoms or risks identified at this time. Initial Sepsis Screen: Does the patient meet any 2 criteria? No. Patient's initial sepsis screen is negative. Does the patient have a suspected source of infection? No. Patient's initial sepsis screen is negative. Risk Assessment: Do you want to hurt yourself or someone else? Patient reports no desire to harm self or others. Onset of symptoms was November 19, 2023. 11:29 Method Of Arrival: Ambulatory ko1 11:29 Acuity: GALDINO 3 ko1 Triage Assessment: 11:30 General: Appears in no apparent distress. Behavior is calm, cooperative, appropriate ko1 for age. Pain: Complains of pain in forehead. Respiratory: Reports shortness of breath at rest copd Onset: The symptoms/episode began/occurred gradually, the patient has moderate shortness of breath. Historical: - Allergies: 11:30 NKDA; ko1 - PMHx: 11:30 AAA; Asthma; Hypertension; Diabetes - NIDDM; CVA; Depression; COPD; Kidney stones; ko1 Myocardial infarction; - Immunization history:: Adult Immunizations unknown, Client reports having NOT received the Covid vaccine. - Social history:: Smoking status: Patient/guardian denies using tobacco, but has a distant history of tobacco abuse. Screenin:43 [facility] ED Fall Risk Assessment (Adult) History of falling in the last 3 months, cp4 including since admission No falls in past 3 months (0 pts) Confusion or Disorientation No (0 pts) Intoxicated or Sedated No (0 pts) Impaired Gait No (0 pts) Mobility Assist Device Used No (0 pt) Altered Elimination No (0 pt) Score/Fall Risk Level 0 - 2 = Low Risk Oriented to surroundings, Maintained a safe environment, Educated pt \T\ family on fall prevention, incl call for assistance when getting out of bed, Assessed \T\ reinforced patient's understanding of fall precautions, Provided non-skid footwear, Hourly rounding (assess needs \T\ fall precautionary measures) done. Abuse screen: Denies threats or abuse. Nutritional screening: No deficits noted. Tuberculosis screening: No symptoms or risk factors identified. Assessment: 13:43 General: Appears in no apparent distress. Behavior is calm, cooperative, appropriate cp4 for age. Cardiovascular: Rhythm is regular. Respiratory: Airway is patent Respiratory effort is even, unlabored, Breath sounds are clear bilaterally. Vital Signs: 11:29 BP 125 / 98; Pulse 113; Resp 18; Temp 97.8; Pulse Ox 95% ; Weight 70.31 kg; Height 5 ko1 ft. 2 in. ; 11:29 Body Mass Index 28.35 (70.31 kg, 157.48 cm) ko1 ED Course: 11:17 Patient arrived in ED. rg4 11:20 Dejon Meraz DO is Attending Physician. ms3 11:30 Triage completed. ko1 11:30 Arm band placed on right wrist. Patient placed in an exam room, on a stretcher, on ko1 electrocardiograph technician, on pulse oximetry, Patient notified of wait time. 11:44 Tamara Dick is Primary Nurse. cp4 12:26 Chest Pa And Lat (2 Views) XRAY In Process Unspecified. EDMS 12:31 CT Abd/Pelvis - IV Contrast Only In Process Unspecified. EDMS 13:19 Oscar Quintanilla DO is Referral Physician. ms3 13:43 Bed in low position. Call light in reach. Side rails up X 1. Provided Education on: cp4 abdominal pain. 13:43 No provider procedures requiring assistance completed. intact, bleeding controlled, No cp4 redness/swelling at site. Pressure dressing applied. Administered Medications: 12:01 Drug: DuoNeb Nebulize (2.5 mg - 0.5 mg) 3 ml Nebulizer once Route: Nebulizer; cp4 12:01 Drug: MethylPrednisoLONE IVP 125 mg IVP once Route: IVP; Site: right antecubital; cp4 12:02 Drug: Famotidine IVP 20 mg IVP once; dilute with 10 mL 0.9% NaCl; give over 2 minutes cp4 Route: IVP; Site: right antecubital; 12:02 Drug: Ondansetron IVP 4 mg IVP once; over 2 minutes Route: IVP; Site: right antecubital;cp4 12:03 Drug: Albuterol Inhalation 5 mg Inhalation once Route: Inhalation; cp4 Medication: 13:43 VIS not applicable for this client. cp4 Outcome: 13:19 Discharge ordered by MD. ms3 13:43 Discharged to home ambulatory, cp4 13:43 Condition: stable 13:43 Discharge instructions given to patient, Instructed on discharge instructions, follow up and referral plans. Demonstrated understanding of instructions, follow-up care, 13:47 Patient left the ED. cp4 Signatures: Dispatcher [employer] Opal Nash rg4 Dejon Meraz DO DO ms3 Jasmyn Goodman, RN RN Tamara Donnelly cp4
[2023-11-19 23:53] VITALS: BP 125/98; TEMP 97.8; O2SAT 95
== END ==
LOC: ER 11:15
DX: J44.1 Chronic obstructive pulmonary disease with (acute) exacerbation (principal); R10.84 Generalized abdominal pain; R11.10 Vomiting, unspecified; R19.7 Diarrhea, unspecified; E11.9 Type 2 diabetes mellitus without complications; I10 Essential (primary) hypertension; Z86.73 Personal history of transient ischemic attack (TIA), and cerebral infarction without residual deficits; Z28.310 Unvaccinated for COVID-19
CPT/HCPCS: 85025; 36415; 83690; 80053; 74177; 71046; 94640; Q9967; J7613; J7644; J2930; J2405

== ENCOUNTER 2024-03-26 13:45 | Emergency (ER) | payer OTHER ==
[2024-03-26 14:35] LABS: Absolute Lymphocytes (CBC) 1.2 K/uL (0.7-4.9); Absolute Monocytes 0.7 K/uL (0.1-1.3); Absolute Neutrophil 8.7 K/uL (1.8-8.0); Basophils % 0.2 % (0-1.3); Eosinophils % 0.3 % (0-4.4); Hemoglobin 15.1 g/dL (12.0-15.0); Lymphocytes % 11.6 % (15.3-44.8); MCH 33.5 pg (27.0-35.0); MCHC 33.5 g/dL (32.0-36.0); MCV 99.9 fL (80-100); MPV 9.2 fL (7.6-11.3); Monocytes % 6.4 % (3.3-12.3); Neutrophils % 81.5 % (41.7-73.7); Platelets 327 thou/uL (152-406); Red Cell Distribution Width 13.7 % (12.1-15.2)
[2024-03-26 14:47] LABS: ALT/SGPT 34 U/L (13-56); Albumin 3.8 g/dL (3.4-5.0); Albumin/Globulin Ratio 1.3 (1.1-1.8); Alkaline Phosphatase 51 U/L (45-117); Anion Gap 12.1 mEq/L (5.0-15.0); BUN Blood Urea Nitrogen 31 mg/dL (7-18); Bicarbonate 26 mEq/L (21-32); Bilirubin Total 0.5 mg/dL (0.2-1.0); Glomerular Filtration Rate 50 ml/min (=/>90); Glucose Level 132 mg/dL (74-106); Lipase 53 U/L (13-75); Potassium 5.1 mEq/L (3.5-5.1); Protein, Total 6.8 g/dL (6.4-8.2); Sodium Level 133 mEq/L (136-145)
[2024-03-26 14:56] LABS: AST/SGOT < 10 U/L (15-37)
--- NOTE | 2024-03-26 16:45 | RAD REPORT ---
EXAM DESCRIPTION: CT - Abdomen Angio - 03/26/2024 3:17 pm CLINICAL HISTORY: ABD PAIN COMPARISON: Abdomen Pelvis W Contrast dated 11/19/2023; Abdomen W/Wo Contrast dated 11/09/2023; Stone Protocol dated 05/02/2020; CTSTONE PROTOCOL dated 07/23/2015; Pelvis Angio dated 03/26/2024 TECHNIQUE: Thin axial CT images of the abdomen and pelvis were obtained during administration of 100 mL Isovue 370 IV contrast. Sagittal and coronal reconstructions as well as maximal intensity projecti on reconstruction were generated and reviewed per an aortic angiography protocol. All CT scans are performed using dose optimization technique as appropriate and may include automated exposure control or mA/KV adjustment according to patient size. FINDINGS: Aorta shows a stable size of infrarenal fusiform aneurysm, measuring 5.3 x 5.4 cm in great est axial dimensions. 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 Mildly progressive appearance of ill-defined branc jerilyn enhancement/hyperdensity along the left aspect of the mural thrombus, best appreciated on axial images 63-66, may reflect progressive calcification or an endoleak. Stable 1 cm calcified granuloma in the left lower lung. Status post cholecystectomy. 1 cm right hepatic dome hypoattenuating lesion suggesting a cyst is stab le. Celiac, SMA, and renal arteries show no suspicious findings. [id number] atherosclerotic calcifi cations along the iliac vessels, with stable mild narrowing of the left common femoral artery. Mild distal colonic diverticulosis. Solid abdominal viscera and bowel show no other significant findi ngs. No mass or abnormal lymphadenopathy. IMPRESSION: Stable size of infrarenal abdominal aortic aneurysm. Mildly progressive appearance of ill-defined branching enhancement/hyperdensity along the left aspect of the aneurysm, within the mural thrombus, may reflect progressive calcification or a subtle endole ak. Other stable incidental findings as above.
--- NOTE | 2024-03-26 16:46 | RAD REPORT ---
EXAM DESCRIPTION: CT - Pelvis Angio - 03/26/2024 3:17 pm CLINICAL HISTORY: No COMPARISON: Abdomen Angio dated 03/26/2024; Abdomen Pelvis W Contrast dated 11/19/2023 TECHNIQUE: Thin axial CT images of the abdomen and pelvis were obtained during administration of 100 mL Isovue 370 IV contrast. Sagittal and coronal reconstructions as well as maximal intensity projecti on reconstruction were generated and reviewed per an aortic angiography protocol. All CT scans are performed using dose optimization technique as appropriate and may include automated exposure control or mA/KV adjustment according to patient size. FINDINGS: Aorta shows a stable size of infrarenal fusiform aneurysm, measuring 5.3 x 5.4 cm in great est axial dimensions. 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 Mildly progressive appearance of ill-defined branc jerilyn enhancement/hyperdensity along the left aspect of the mural thrombus, best appreciated on axial images 63-66, may reflect progressive calcification or an endoleak. Stable 1 cm calcified granuloma in the left lower lung. Status post cholecystectomy. 1 cm right hepatic dome hypoattenuating lesion suggesting a cyst is stab le. Celiac, SMA, and renal arteries show no suspicious findings. Mpfv-kx-dwrawgul atherosclerotic calcifi cations along the iliac vessels, with stable mild narrowing of the left common femoral artery. Mild distal colonic diverticulosis. Solid abdominal viscera and bowel show no other significant findi ngs. No mass or abnormal lymphadenopathy. IMPRESSION: Stable size of infrarenal abdominal aortic aneurysm. Mildly progressive appearance of ill-defined branching enhancement/hyperdensity along the left aspec t of the aneurysm, within the mural thrombus, may reflect progressive calcification or a subtle endol eak. Other stable incidental findings as above.
--- NOTE | 2024-03-26 18:02 | EDPHYS ---
Physician Documentation [facility] Name: Cornelia Fairbanks Age: 68 yrs Sex: Female : 1955 Arrival Date: 03/26/2024 Time: 13:45 Bed 17 Private MD: ED Physician Dejon Meraz HPI: 03/26 15:35 This 68 yrs old Female presents to ER via Ambulatory with complaints of ms3 Abdominal Pain. 15:35 68-year-old female with past medical history of AAA, asthma, COPD, CVA, depression, ms3 diabetes, hypertension, kidney stones presents to the emergency department for epigastric abdominal pain that has been ongoing for 3 days. Patient rates pain a 7/10. Patient states she has taken Advil dual action with minimal relief of her symptoms. Patient endorses nausea and diarrhea. Patient denies fevers, chills, vomiting. Historical: - Allergies: 13:58 NKDA; as6 - PMHx: 13:58 AAA; Asthma; COPD; CVA; Depression; Diabetes - NIDDM; Hypertension; Kidney stones; as6 Myocardial infarction; - PSHx: 13:58 Cholecystectomy; section; as6 - Immunization history:: Adult Immunizations up to date. - Infectious Disease History:: Denies. - Social history:: Smoking status: Patient/guardian denies using tobacco, the patient reports quitting approximately 7 years ago. ROS: 15:35 Constitutional: Negative for fever, and chills. Cardiovascular: Negative for chest ms3 pain, and palpitations. Respiratory: Negative for shortness of breath, cough, wheezing, and pleuritic chest pain, MS/Extremity: Negative for injury and deformity, Skin: Negative for injury, rash, and discoloration, Neuro: Negative for headache, weakness, numbness, tingling. 15:35 Abdomen/GI: Positive for abdominal pain, nausea, diarrhea, Negative for vomiting, Exam: 15:35 Constitutional: This is a well developed, well nourished patient who is awake, alert, ms3 and in no acute distress. Neck: Trachea midline, no cervical lymphadenopathy. Supple, full range of motion without nuchal rigidity, or vertebral point tenderness. No Meningismus. Chest/axilla: Normal chest wall appearance and motion. Nontender with no deformity. Cardiovascular: Regular rate and rhythm with a normal S1 and S2. No gallops, murmurs, or rubs. Normal PMI, no JVD. No pulse deficits. Respiratory: Lungs have equal breath sounds bilaterally, clear to auscultation and percussion. No rales, rhonchi or wheezes noted. No increased work of breathing, no retractions or nasal flaring. Abdomen/GI: Soft, non-tender, with normal bowel sounds. No distension or tympany. No guarding or rebound. No evidence of tenderness throughout. Skin: Warm, dry with normal turgor. Normal color with no rashes, no lesions, and no evidence of cellulitis. Vital Signs: 13:57 BP 109 / 92; Pulse 124; Resp 18; Temp 97.8; Pulse Ox 99% ; Weight 68.04 kg; Height 5 as6 ft. 2 in. ; Pain 7/10; 15:14 BP 103 / 65; Pulse 104; Resp 17; Pulse Ox 99% on R/A; rs5 18:25 BP 111 / 77; Pulse 88; Resp 18; Pulse Ox 99% on R/A; rs5 13:57 Body Mass Index 27.44 (68.04 kg, 157.48 cm) as6 13:57 Pain Scale: Adult as6 MDM: 14:08 Patient medically screened. ms3 15:35 Differential diagnosis: AAA, bowel obstruction, cholecystitis, Cholelithiasis, ms3 diverticulitis, non-specific abd pain, pancreatitis. 18:02 Data reviewed: vital signs, nurses notes, lab test result(s), radiologic studies, and ms3 as a result, I will discharge patient. Management of patient was discussed with the following: Noc Analyst: Dr Vallecillo- Recommended CTA abdomen and pelvis. Discussed results with him after imaging completed. He reviewed patient's imaging and states her images are unchanged from the CTA performed in Nov. From a vascular standpoint patient can follow up with him in clinic and patient should call the clinic.. 18:02 Historians other than the Patient: Daughter/Son: Patient's daughter. Care significantly ms3 affected by the following chronic conditions: Diabetes, Hypertension, Chronic Obstructive Pulmonary Disease, Chronic Kidney Disease. Counseling: I had a detailed discussion with the patient and/or guardian regarding the historical points, exam findings, and any diagnostic results supporting the discharge/admit diagnosis, lab results, radiology results, the need for outpatient follow up, to return to the emergency department if symptoms worsen or persist or if there are any questions or concerns that arise at home. Special discussion: Based on the patient's Hx, exam, and Dx evaluation, there is no indication for emergent surgery or inpatient Tx. It is understood by the patient/guardian that if the Sx's persist or worsen they need to return immediately for re-evaluation. ED course: Discussed my conversation with Dr. Vallecillo with patient her daughter. Patient to follow-up with Dr. Vallecillo in 2 to 3 days. Patient and her daughter understand and agree with plan. All questions were answered. Return precautions discussed include lightheadedness, chest pain, shortness of breath, worsening symptoms, or any other concerns.. 03/26 14:04 Order name: CBC with Diff; Complete Time: 14:58 ms3 03/26 14:04 Order name: CMP; Complete Time: 14:58 ms3 03/26 14:04 Order name: Lipase; Complete Time: 14:58 ms3 03/26 15:04 Order name: Abdomen Angio CT; Complete Time: 17:00 ms3 03/26 15:04 Order name: Pelvis Angio CT; Complete Time: 17:00 ms3 03/26 14:04 Order name: IV Saline Lock; Complete Time: 15:14 ms3 03/26 14:04 Order name: Labs collected and sent; Complete Time: 15:14 ms3 Administered Medications: No medications were administered Disposition Summary: 03/26/24 18:02 Discharge Ordered Notes: Location: Home ms3 Condition: Stable ms3 Diagnosis - Upper abdominal pain, unspecified ms3 Followup: ms3 - With: Private Physician - When: 2 - 3 days - Reason: Recheck today's complaints Discharge Instructions: - Discharge Summary Sheet ms3 - Abdominal Pain, Adult ms3 Forms: - Medication Reconciliation Form ms3 - Antibiotic Education ms3 - Prescription Opioid Use ms3 - Patient Portal Instructions ms3 - Leadership Thank You Letter ms3 Prescriptions: - Pepcid 20 mg Oral Tablet - take 1 tablet ORAL route every 12 hours for 5 days; 10 tablet; Refills: 0, ms3 Product Selection Permitted Signatures: Dispatcher [facility] EDNE Dejon Meraz DO DO ms3 Naveen Mcclain RN RN as6 Corrections: (The following items were deleted from the chart) 14:05 14:05 Abdomen Pelvis W Con+CT.RAD.BRZ ordered. EDMS EDMS
--- NOTE | 2024-03-26 18:02 | ER ---
Nurse's Notes [facility] Name: Cornelia Fairbanks Age: 68 yrs Sex: Female : 1955 Arrival Date: 03/26/2024 Time: 13:45 Bed 17 Private MD: Diagnosis: Upper abdominal pain, unspecified Presentation: 03/26 13:59 Chief complaint: Patient states: off and on upper abdominal pain that has become more as6 constant. Coronavirus screen: At this time, the client does not indicate any symptoms associated with coronavirus-19. Ebola Screen: No symptoms or risks identified at this time. Initial Sepsis Screen: Does the patient meet any 2 criteria? No. Patient's initial sepsis screen is negative. Does the patient have a suspected source of infection? No. Patient's initial sepsis screen is negative. Risk Assessment: Do you want to hurt yourself or someone else? Patient reports no desire to harm self or others. Onset of symptoms was March 23, 2024. 13:59 Acuity: GALDINO 3 as6 13:59 Method Of Arrival: Ambulatory as6 Triage Assessment: 14:00 General: Appears uncomfortable, Behavior is calm, cooperative. Pain: Complains of pain as6 in abdomen. Historical: - Allergies: 13:58 NKDA; as6 - PMHx: 13:58 AAA; Asthma; COPD; CVA; Depression; Diabetes - NIDDM; Hypertension; Kidney stones; as6 Myocardial infarction; - PSHx: 13:58 Cholecystectomy; section; as6 - Immunization history:: Adult Immunizations up to date. - Infectious Disease History:: Denies. - Social history:: Smoking status: Patient/guardian denies using tobacco, the patient reports quitting approximately 7 years ago. Screenin:52 [facility] ED Fall Risk Assessment (Adult) History of falling in the last 3 months, rs5 including since admission No falls in past 3 months (0 pts) Confusion or Disorientation No (0 pts) Intoxicated or Sedated No (0 pts) Impaired Gait No (0 pts) Mobility Assist Device Used No (0 pt) Altered Elimination No (0 pt) Score/Fall Risk Level 0 - 2 = Low Risk Oriented to surroundings, Maintained a safe environment. Abuse screen: Denies threats or abuse. Nutritional screening: No deficits noted. Tuberculosis screening: No symptoms or risk factors identified. Assessment: 13:51 General: Appears in no apparent distress. uncomfortable, Behavior is calm, cooperative. rs5 Pain: Complains of pain in abdomen Pain currently is 8 out of 10 on a pain scale. Quality of pain is described as aching, Is continuous. Neuro: Level of Consciousness is awake, alert, obeys commands, Oriented to person, place, time, situation. Cardiovascular: Patient's skin is warm and dry. Rhythm is sinus tachycardia. Respiratory: Airway is patent Respiratory effort is even, unlabored, Respiratory pattern is regular, symmetrical. GI: Abdomen is round non-distended, Bowel sounds present X 4 quads. Abd is soft and non tender X 4 quads. Reports nausea. : No signs and/or symptoms were reported regarding the genitourinary system. EENT: No signs and/or symptoms were reported regarding the EENT system. Derm: Skin is intact, Skin is pink, warm \T\ dry. Musculoskeletal: Range of motion: intact in all extremities. 13:52 Reassessment: Provider notified pt is experiencing pain. rs5 14:00 General: Appears in no apparent distress. comfortable, Behavior is calm, cooperative. rs5 15:01 Reassessment: Patient and/or family updated on plan of care and expected duration. Pain rs5 level reassessed. Patient is alert, oriented x 3, equal unlabored respirations, skin warm/dry/pink. 16:21 Reassessment: Patient and/or family updated on plan of care and expected duration. Pain rs5 level reassessed. Patient is alert, oriented x 3, equal unlabored respirations, skin warm/dry/pink. 17:38 Reassessment: No changes from previously documented assessment. rs5 18:33 Reassessment: Patient and/or family updated on plan of care and expected duration. Pain rs5 level reassessed. Patient is alert, oriented x 3, equal unlabored respirations, skin warm/dry/pink. Vital Signs: 13:57 BP 109 / 92; Pulse 124; Resp 18; Temp 97.8; Pulse Ox 99% ; Weight 68.04 kg; Height 5 as6 ft. 2 in. ; Pain 7/10; 15:14 BP 103 / 65; Pulse 104; Resp 17; Pulse Ox 99% on R/A; rs5 18:25 BP 111 / 77; Pulse 88; Resp 18; Pulse Ox 99% on R/A; rs5 13:57 Body Mass Index 27.44 (68.04 kg, 157.48 cm) as6 13:57 Pain Scale: Adult as6 ED Course: 13:48 Patient arrived in ED. im 13:51 Dejon Meraz DO is Attending Physician. ms3 13:52 Patient has correct armband on for positive identification. Placed in gown. Bed in low rs5 position. Call light in reach. Side rails up X2. 13:52 No provider procedures requiring assistance completed. rs5 13:57 Arm band placed on. as6 14:00 Triage completed. as6 14:01 Joselito Espino, RN is Primary Nurse. rs5 15:[address] In Process Unspecified. EDMS 15:[address] In Process Unspecified. EDMS 18:35 IV discontinued, intact, bleeding controlled, No redness/swelling at site. Pressure rs5 dressing applied. Administered Medications: No medications were administered Medication: 14:37 VIS not applicable for this client. rs5 Outcome: 18:02 Discharge ordered by . ms3 18:35 Discharged to home ambulatory, rs5 18:35 Condition: stable 18:35 Discharge instructions given to patient, family, Instructed on discharge instructions, follow up and referral plans. 18:40 Patient left the ED. rs5 Signatures: Dispatcher [employer] EDMS Dejon Meraz DO DO ms3 Naveen Mcclain, RN RN as6 Joselito Espnio, RN RN rs5 Lavonne Nieves im Corrections: (The following items were deleted from the chart) 16:22 13:52 Reassessment: Provider notified pt is experiencing pain. rs5 rs5
[2024-03-26 18:51] VITALS: BP 103/65; TEMP 97.8; O2SAT 99
== END 2024-03-26 18:40 | disposition home or self-care (01) ==
LOC: ER 13:45
DX: R10.13 Epigastric pain (principal); R19.7 Diarrhea, unspecified; R11.0 Nausea; Z87.442 Personal history of urinary calculi
CPT/HCPCS: 85025; 36415; 83690; 80053; 72191; 74175; Q9967

== ENCOUNTER 2024-08-08 06:06 | Day surgery (SDC) | payer OTHER ==
--- NOTE | 2024-08-06 14:37 | RAD REPORT ---
Procedure: Chest Pa And Lat (2 Views) HISTORY: Preop for hernia repair. COMPARISON: November 2023 FINDINGS: The lungs appear clear of acute infiltrate. Calcified granuloma left lower lobe. Lungs are mildly to moderately hyperaerated. No significant pleural effusion noted. The heart is normal size. IMPRESSION: No acute abnormality is displayed.
[2024-08-06 14:52] LABS: Absolute Basophils 0.1 K/uL (0-0.5); Absolute Eosinophils 0.3 K/uL (0-0.5); Absolute Lymphocytes (CBC) 1.3 K/uL (0.7-4.9); Absolute Monocytes 0.9 K/uL (0.1-1.3); Absolute Neutrophil 10.4 K/uL (1.8-8.0); Basophils % 0.5 % (0-1.3); Eosinophils % 2.2 % (0-4.4); Hematocrit 47.5 % (36.0-45.0); Hemoglobin 15.9 g/dL (12.0-15.0); Lymphocytes % 10.4 % (15.3-44.8); MCH 33.2 pg (27.0-35.0); MCHC 33.4 g/dL (32.0-36.0); MCV 99.5 fL (80-100); MPV 8.5 fL (7.6-11.3); Monocytes % 6.6 % (3.3-12.3); Neutrophils % 80.3 % (41.7-73.7); Platelets 338 thou/uL (152-406); RBC Red Blood Cell Count 4.77 M/uL (3.86-4.86); Red Cell Distribution Width 14.2 % (12.1-15.2)
[2024-08-06 15:06] LABS: Anion Gap 11.8 mEq/L (5.0-15.0); Potassium 4.8 mEq/L (3.5-5.1)
--- NOTE | 2024-08-07 12:17 | EKG ---
Test Date: 2024-08-06 Test Time: 13:41:38 Sewing Line Baler: ENE MEASUREMENT RESULTS: Intervals: Rate: 108 UT: 132 QRSD: 88 QT: 336 QTc: 450 Howells: P: 79 UT: 132 QRS: -78 T: 75 INTERPRETIVE STATEMENTS: Sinus tachycardia RSR' or QR pattern in V1 suggests right ventricular conduction delay Left anterior fascicular block Abnormal ECG Compared to ECG 12/09/2022 11:27:35 RSR' in V1 or V2 now present Atrial abnormality no longer present Left ventricular hypertrophy no longer present Early repolarization no longer present Electronically Signed On 08-07-24 12:13:15 CDT by Pete Rojo
[2024-08-08] MEDS ORDERED: SUCCINYLCHOLINE 20 MG/ML (10 ML) IV ONE (06:39)
[2024-08-08] MEDS ORDERED: SUGAMMADEX SODIUM 200 MG/2 ML VIAL IV ONE (06:39)
[2024-08-08] MEDS ORDERED: NA CHLORIDE 0.9% 1,000 ML ONE (06:45)
[2024-08-08] MEDS ORDERED: LIDOCAINE 2% MPF 5 ML VIAL ONE (06:47)
[2024-08-08] MEDS ORDERED: ONDANSETRON 4 MG/2 ML VIAL ONE (06:47)
[2024-08-08] MEDS ORDERED: propofoL 200 MG/20 ML VIAL IV ONE (06:47)
[2024-08-08] MEDS ORDERED: FENTANYL CITR 100 MCG/2 ML ONE (06:48)
[2024-08-08] MEDS ORDERED: ROCURONIUM 50 MG/5 ML VIAL IV ONE (06:48)
[2024-08-08] MEDS ORDERED: MIDAZOLAM HCL 2 MG/2 ML INJ ONE (06:48)
[2024-08-08] MEDS: CEFAZOLIN SODIUM 2 GM/VIAL ONE (07:37)
[2024-08-08] MEDS ORDERED: dexAMETHasone 4 MG/ML VIAL ONE (08:17)
--- NOTE | 2024-08-08 09:20 | P.OP ---
Date of Service: 08/08/24 Preop diagnosis: Recurrent, ventral incisional hernia Postop diagnosis: Same Procedure performed: Laparoscopic repair of recurrent, ventral incisional hernia Surgeon: Kiko Sibley MD Box Inspector: None Estimated blood loss: Minimal Specimen: Hernia sac and contents Findings: As above Anesthesia: General Complications: None Drains: None Fluids and blood products: Nonapplicable Disposition: Recovery room Operative note: Patient brought to the OR and placed in supine position. General anesthesia began. Patient prepped and draped in usual sterile fashion. Marcaine 0.5% right locally. 15 blade used to make a 1 cm left upper quadrant incision. Subcu tissue divided. Bleeding controlled cautery. Fascia identified and divided. #1 Vicryl stay suture placed. Peritoneal cavity entered with sharp and blunt dissection. 12 mm trocar placed into the peritoneal cavity under direct vision. Pneumoperitoneum established. 5 mm trocar placed in the left lower quadrant under direct vision. Laparoscopy revealed a medium size epigastric hernia with preperitoneal fat incarcerated inside of it. A 4 cm incision made over the hernia. Subcu tissue divided. Mixed with cautery. Hernia sac and contents identified. Hernia sac and contents excised and sent to pathology as specimen. Good fascial edges obtained. #1 PDS used to close the fascial defect. Pneumoperitoneum reestablished. Bard oval-shaped balloon system mesh placed in the standard fashion. Mesh secured with Sorbi tack stapler. Complete coverage of the hernia defect accomplished. No evidence of bleeding or bowel injury appreciated. All trocars removed under direct vision. Stay sutures tied to each other to reapproximate the fascial defect. Subcu wound irrigated bleeding with cautery. 0 chromic used to approximate subcu tissue and geo used to close skin. Dressing applied. Patient awakened and taken to recovery room in good general condition. CC: Dr. Lucia Sibley's
[2024-08-08] MEDS: ALBUTEROL 2.5 MG/3 ML NEB SOL ONE (09:25)
[2024-08-08] MEDS: FENTANYL CITR 100 MCG/2 ML ONE (09:26)
[2024-08-08] MEDS: HYDROMORPHONE HCL 1 MG/ML INJ ONE (09:42)
--- NOTE | 2024-08-08 09:59 | RAD REPORT ---
EXAMINATION: ONE VIEW CHEST XR CLINICAL INDICATION: Female, 68 years old.,SOB POST OP TECHNIQUE: Frontal chest projection is submitted. Examination is limited by patient positioning and t echnique. COMPARISON: 08/08/2024 FINDINGS: Mildly decreased inspiratory effort. Mild central interstitial prominence, could relate to atelectasi s. No pneumothorax or sizable effusion. The heart is normal in size. IMPRESSION: Mild central interstitial prominence, could relate to atelectasis. No other acute findings.
[2024-08-08] MEDS ORDERED: HYDROCODONE/APAP 7.5/325 MG TAB ONE (10:39)
[2024-08-08] MEDS: HYDROCODONE/APAP 7.5/325 MG TAB PO PRN (10:42)
[2024-08-08 13:42] VITALS: BP 108/53; TEMP 98.1
[2024-08-08 13:45] VITALS: O2SAT 98
== END 2024-08-08 11:50 | disposition home or self-care (01) ==
LOC: OR 06:06
PROVIDERS: ATTEND Surgery
PROC: 0WQF4ZZ Repair Abdominal Wall, Percutaneous Endoscopic Approach (ICD-10-PCS; principal; 2024-08-08 07:30)
DX: K43.2 Incisional hernia without obstruction or gangrene (principal)
CPT/HCPCS: 93005; 85025; 80048; 36415; 82947 ×2; 88302; 71045; 71046; 49615; J2704; J1100; J7613; J2003; J2250; J3010 ×2; J1171; J2405; J7030